=== PATIENT | female | born 1940 | race Caucasian/White ===

== ENCOUNTER 2020-04-07 14:09 | Outpatient (CLI) | payer MEDICARE, SELFPAY ==
--- NOTE | ~2020-04-07 | MM_ITS ---
EXAMINATION: MM screening linda BI w isamar HISTORY: Screening mammogram TECHNIQUE: Craniocaudal and mediolateral oblique 3-D tomosynthesis images were obtained and synthetic 2-D images were generated. CAD analysis was submitted and interpreted. COMPARISON: 03/28/2019, 03/22/2018, 02/14/2017 bilateral digital screening mammogram examinations BREAST PARENCHYMAL COMPOSITION: There are scattered areas of fibroglandular density. FINDINGS: There is no evidence of suspicious mass, calcification, or architectural distortion to sugg est malignancy in either breast. There has been no suspicious interval change. IMPRESSION: 1. No mammographic evidence of malignancy. 2. Recommend routine screening mammography in one year. BI-RADS Category 1: Negative Reviewed, dictated and finalized at location A.
== END 2020-04-07 14:10 | disposition home or self-care (01) ==
LOC: ANHIMG 14:14
PROVIDERS: PCP Internal Medicine; Visit Provider Nurse Practitioner Obstetrics & Gynecology
DX: Z12.31 Encounter for screening mammogram for malignant neoplasm of breast (principal)
CPT/HCPCS: 77063; 77067

== ENCOUNTER → 2020-05-22 10:20 | Outpatient (CLI) | payer MEDICARE, SELFPAY ==
--- NOTE | ~2020-05-22 | MR_ITS ---
EXAMINATION: MR lumbar spine wo con DATE: 05/22/2020 11:05 INDICATION: Low back pain and left leg pain TECHNIQUE: Magnetic resonance imaging (MRI) of the lumbar spine was performed without intravenous con trast. Sequences included sagittal T2-weighted FSE, sagittal T2-weighted FS FSE, sagittal T1-weighted FSE, and axial T2-weighted FSE. COMPARISON: None FINDINGS: 2 mm anterolisthesis L4 on L5. Lumbar levocurvature. Relatively recent T11 and L1 superior endplate c ompression fractures with 20% central vertebral body height loss and marrow edema surrounding the dante ear low signal intensity subtle endplate fracture lines. Remaining vertebral body heights are normal. T1 hyperintense hemangiomas at L1 and L2. There are also fibrofatty degenerative endplate changes at the margins of several endplates. Marrow signal is otherwise normal. Mild right-sided predominant di sc height loss at L2-L3 and L3-L4 and left-sided predominant disc height loss at L4-L5. More diffuse mild disc height loss at T10-T11, T11-T12, L1-L2 and L5-S1. The conus medullaris terminates at L1-L2. There is normal signal in the caudal spinal cord. Paravertebral soft tissues are unremarkable. There are couple small T2 hyperintense left renal cysts measuring up to 11 mm. Chronic dilated right renal pelvis. The following disc levels are specifically discussed: T10-T11: Disc is bulging. There is mild bilateral facet osteoarthritis. There is mild bilateral neura l foraminal stenosis. There is mild central canal stenosis. T11-T12: Disc is bulging. There is minimal bilateral facet osteoarthritis. There is mild left and min imal right neural foraminal stenosis. There is mild central canal stenosis. T12-L1: Disc is bulging, eccentric to the left. There is mild left and moderate right facet joint ost eoarthritis. There is mild bilateral neural foraminal stenosis. There is mild central canal stenosis. L1-L2: Disc is bulging. There is mild left and mild to moderate right facet joint osteoarthritis. The re is moderate bilateral neural foraminal stenosis. There is mild central canal stenosis with narrowi ng of the left and right lateral recesses. L2-L3: Disc is bulging. There is hypertrophy of the ligamentum flavum. There is mild left and modera te right facet joint osteoarthritis. There is moderate right and mild to moderate left neural foramin al stenosis. There is mild central canal stenosis along with narrowing of the left and right lateral recesses. L3-L4: Disc is bulging. There is hypertrophy of the ligamentum flavum. There is moderate right and mi ld to moderate left facet joint osteoarthritis. There is moderate bilateral neural foraminal stenosis . There is mild to moderate central canal stenosis with narrowing of the left and right lateral reces ses. L4-L5: Disc is bulging. There is hypertrophy of the ligamentum flavum. There is a right and mild to moderate left facet joint osteoarthritis. There is moderate left and mild to moderate right neural fo raminal stenosis. There is moderate central canal stenosis with narrowing of the left and right later al recesses. L5-S1: Disc is bulging. There is moderate bilateral facet joint osteoarthritis. There is moderate frankie ateral neural foraminal stenosis. There is no central canal stenosis. There is narrowing of the left and right lateral recesses. IMPRESSION: 1. Relatively recent T11 and L1 compression fractures with 20% vertebral body height loss. 2. Moderate lumbar and lower thoracic spondylosis. Reviewed, dictated and finalized at location A. 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 Relatively recent T11 and L1 compression fractures with 20% vertebral body h eight loss. 2. Moderate lumbar and lower thoracic spondylosis.
== END ==
PROVIDERS: PCP Internal Medicine; Visit Provider Orthopaedic Surgery
DX: M47.896 Other spondylosis, lumbar region (principal); M47.894 Other spondylosis, thoracic region
CPT/HCPCS: 72148

== ENCOUNTER → 2021-04-09 10:08 | Outpatient (CLI) | payer MEDICARE, SELFPAY ==
--- NOTE | ~2021-04-09 | MR_ITS ---
EXAMINATION: MR brain/brain stem wo/w con DATE: 04/09/2021 11:10 INDICATION: Other symptoms and signs involving cognitive functions. Headache. TECHNIQUE: Magnetic resonance imaging (MRI) of the brain and brainstem was performed without and with 12 mL MultiHance intravenous contrast. Sequences included sagittal and axial T1-weighted FSE, axial diffusion-weighted FS EPI, axial T2*-weighted GRE, axial T2-weighted FLAIR Propeller, and axial T2-we ighted Propeller. Postcontrast sequences included axial and coronal T1-weighted FSE. Apparent diffusi on coefficient (ADC) maps were created. COMPARISON: Brain MRI 08/17/2017 FINDINGS: There are scattered areas of nonspecific increased T2-weighted signal intensity in the cere bral white matter, which is within normal limits for the patient's age. There is no intracranial hemo rrhage, acute infarction, or abnormal intracranial mass lesion. The ventricles are normal in size. Th ere is mild mucosal thickening in the paranasal sinuses. There are likely changes of ocular lens repl acement surgeries. The mastoid air cells are normal. IMPRESSION: 1. Normal aging brain. Reviewed, dictated and finalized at location A. IMPRESSION: 1. Normal aging brain.
[2021-04-09 10:53] LABS: Estimated Glomerular Filt Rate > 60
== END ==
PROVIDERS: PCP Internal Medicine; Visit Provider Internal Medicine
DX: R41.89 Other symptoms and signs involving cognitive functions and awareness (principal)
CPT/HCPCS: 70553; A9577

== ENCOUNTER 2021-04-15 13:25 | Outpatient (CLI) | payer MEDICARE, SELFPAY ==
--- NOTE | ~2021-04-15 | DEXA_ITS ---
Bone Density Report Name: Bre Barillas Age: 80 Sex: Female Ethnicity: White Date of : 1940 Indication: osteopenia; monitoring treatment; height loss; prior fracture; postmenopausal Referring Provider: Anna Marie, Zak Study: Bone densitometry was performed. Exam Date: April 15, 2021 Accession number: [id number] Bone Density: Region BMD T-score Z-score Classification AP Spine (L2, L3) 0.914 -1.3 1.4 Osteopenia Femoral Neck (Left) 0.702 -1.3 1.0 Osteopenia Total Hip (Left) 0.876 -0.5 1.5 Normal Total Hip Bilateral Avg 0.874 -0.6 1.5 Normal Femoral Neck (Right) 0.743 -1.0 1.3 Normal Total Hip (Right) 0.872 -0.6 1.5 Normal World Health Organization criteria for BMD impression classify patients as: Normal (T-score at or above -1.0), Osteopenia (T-score between -1.0 and -2.5), or Osteoporosis (T-score at or below -2.5). 10-year Fracture Risk: FRAX not reported because: Treated for osteoporosis Previous Exams: Region Exam Age BMD T-score BMD Change BMD Change Date g/cm2 vs Baseline vs Previous AP Spine(L2, L3) 04/15/2021 80 0.914 -1.3 0.079(9.4%)# 0.020(2.3%)# 07/17/2008 68 0.894 -1.5 0.059(7.0%)* 0.059(7.0%)* 07/16/2006 66 0.835 -2.0 Total Hip(Left) 04/15/2021 80 0.876 -0.5 0.007(0.8%)# 0.028(3.3%)# 07/17/2008 68 0.848 -0.8 -0.021(-2.4%) -0.021(-2.4%) 07/16/2006 66 0.869 -0.6 Total Hip(Right) 04/15/2021 80 0.872 -0.6 -0.039(-4.3%)# -0.054(-5.8%)# 07/17/2008 68 0.926 -0.1 0.014(1.6%) 0.014(1.6%) 07/16/2006 66 0.911 -0.3 *Denotes significance at 95% confidence level, LSC for AP Spine = 0.022 g/cm2, LSC for Total Hip = 0.027 g/cm2 Clinical Information Provided by Patient: Has had a low trauma fracture Is being treated for osteoporosis Has used the following medications: Prolia (i.e. denosumab), Vitamin D, Calcium Patient maximum height was 63 Menopause Age: 53 Drinks caffeinated beverages Onset of menses at age 13 Number of children 5 Impression: The patient has low bone mass, based on the Total Spine T-score. The patient has risk factors, including: previous fracture. No significant bone loss was observed. Discussion: PATIENT UNDER TREATMENT WITH NO SIGNIFICANT BMD LOSS SINCE LAST EXAM. In an untreated patient, BMD typically declines with age. A lack of decline or gain is usually a sign that treatment is efficacious and fracture risk is reduced. It is important to ask arminda
--- NOTE | ~2021-04-15 | MM_ITS ---
EXAMINATION: MM screening linda BI w isamar HISTORY: Screening TECHNIQUE: Craniocaudal and mediolateral oblique 3-D tomosynthesis images were obtained and synthetic 2-D images were generated. CAD analysis was submitted and interpreted. COMPARISON: Comparison to multiple prior studies sequentially, with oldest reviewed study dated 10/15. BREAST PARENCHYMAL COMPOSITION: There are scattered areas of fibroglandular density. FINDINGS: There is no evidence of suspicious mass, calcification, or architectural distortion to sugg est malignancy in either breast. There has been no suspicious interval change. IMPRESSION: 1. No mammographic evidence of malignancy. 2. Recommend routine screening mammography in one year. BI-RADS Category 1: Negative Reviewed, dictated and finalized at location A.
== END 2021-04-15 13:26 | disposition home or self-care (01) ==
PROVIDERS: PCP Internal Medicine; Visit Provider Internal Medicine
DX: Z12.31 Encounter for screening mammogram for malignant neoplasm of breast (principal); M85.89 Other specified disorders of bone density and structure, multiple sites
CPT/HCPCS: 77063; 77067; 77080

== ENCOUNTER → 2022-08-27 14:33 | Outpatient (CLI) | payer OTHER, SELFPAY ==
--- NOTE | ~2022-08-27 | MM_ITS ---
EXAMINATION: MM screening linda BI w isamar HISTORY: Screening mammogram TECHNIQUE: Craniocaudal and mediolateral oblique 3-D tomosynthesis images were obtained and synthetic 2-D images were generated. CAD analysis was submitted and interpreted. COMPARISON: 04/15/2021, 04/07/2020, 03/28/2019, 03/22/2018 bilateral screening mammogram examinations BREAST PARENCHYMAL COMPOSITION: There are scattered areas of fibroglandular density. FINDINGS: Right breast: There is a 2.9 mm relatively high density opacity in the posterior slightly outer right breast on craniocaudal view. Diagnostic right mammogram is recommended, with ultrasound if required. Otherwise there is no evidence of suspicious mass, calcification, or architectural distortion to sugg est malignancy in either breast. There has been no other suspicious interval change. IMPRESSION: 1. 2.9 mm relatively high density opacity in the posterior slightly outer right breast on CC view 2. Diagnostic right mammogram and right breast ultrasound examination are recommended. BI-RADS Category 0: Incomplete: Needs additional imaging evaluation. Reviewed, dictated and finalized at location A. 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 2.9 mm relatively high density opacity in the posterior slightly outer right breast on CC view 2. Diagnostic right mammogram and right breast ultrasound examination are recom mended. BI-RADS Category 0: Incomplete: Needs additional imaging evaluation.
== END ==
PROVIDERS: PCP Internal Medicine; Visit Provider Nurse Practitioner Obstetrics & Gynecology
DX: Z12.31 Encounter for screening mammogram for malignant neoplasm of breast (principal); R92.8 Other abnormal and inconclusive findings on diagnostic imaging of breast
CPT/HCPCS: 77063; 77067

== ENCOUNTER → 2022-10-05 10:03 | Outpatient (CLI) | payer OTHER, SELFPAY ==
--- NOTE | ~2022-10-05 | MMUS_ITS ---
EXAMINATION: MM diagnostic linda RT w isamar, US breast RT complete HISTORY: Follow-up right breast asymmetry TECHNIQUE: Additional 3-D tomosynthesis images of the right breast were performed and synthetic 2-D i mages were generated. CAD analysis was submitted and interpreted. High resolution complete right emerita st ultrasound was performed. COMPARISON: Comparison to multiple prior studies sequentially, with oldest reviewed study dated 02/14. BREAST PARENCHYMAL COMPOSITION: The breasts are heterogeneously dense, which may obscure small masses . FINDINGS: MAMMOGRAPHIC FINDINGS: There is an elongated asymmetric density in the upper outer quadrant of the right breast, slightly mo re prominent than on prior studies dated 02/14/2017 and 03/22/2018. The focal 2 mm asymmetry centrally in the right breast, posterior third is not identified on medial lateral or MLO views. ULTRASOUND: Complete US of all 4 quadrants of the right breast and retroareolar region was reviewed. At 11:00, 6 cm from the nipple there is an irregular shaped hypoechoic mass with some angular margins and mixed p osterior attenuation. No internal vascularity. This soft tissue measures approximately 2.2 x 0.5 cm. This corresponds to the asymmetry seen on mammography. No sonographic abnormalities identified to cor respond to the focal 2 mm asymmetry seen more medially and posteriorly. IMPRESSION: 1. Irregular shaped hypoechoic mass in the right breast at 11:00, 6 cm from the nipple measuring up t o 2.2 cm. 2. Ultrasound-guided right breast biopsy recommended. BI-RADS category 4, suspicious findings. Reviewed, dictated and finalized at location A. IMPRESSION: 1. Irregular shaped hypoechoic mass in the right breast at 11:00, 6 cm from the nipple measuring up to 2.2 cm. 2. Ultrasound-guided right breast biopsy recommended. BI-RADS category 4, suspicious findings.
== END ==
PROVIDERS: PCP Internal Medicine; Visit Provider Nurse Practitioner Obstetrics & Gynecology
DX: R92.8 Other abnormal and inconclusive findings on diagnostic imaging of breast (principal)
CPT/HCPCS: 76641; 77061; 77065; G0279

== ENCOUNTER 2022-12-07 12:42 | Outpatient (CLI) | payer MEDICARE, SELFPAY ==
--- NOTE | ~2022-12-07 | MMUS_ITS ---
EXAMINATION: US breast biopsy RT w image, MM post biopsy invasive RT DATE: 12/07/2022 14:13 (accession [id number]), 12/07/2022 13:55 (accession [id number]) INDICATION: Indeterminate mass in the upper outer quadrant of the right breasts. Ultrasound-guided co re biopsy is requested to evaluate for malignancy. TECHNIQUE AND FINDINGS: The risks and potential benefits of the procedure were discussed with the patient including bleeding and infection. A time out was performed. The skin of the right breast was prepared and draped in usua l sterile fashion. 1% lidocaine was used for superficial anesthesia. 1% lidocaine with epinephrine wa s used for deep anesthesia. A vacuum-assisted biopsy needle was advanced through to the outer edge of the region of interest from an inferior approach utilizing sonographic guidance. A total of four tissue core samples were obtain ed through the lesion. A tissue marker clip was then placed at the biopsy site. Hemostasis was achiev ed. A sterile bandage was applied. The patient tolerated procedure well and there was no evidence of immediate complication. The patient was given verbal instructions to return to the Emergency Department in the event of severe breast pa in or rapid breast enlargement. A two view right breast mammogram was obtained to document tissue mar ker clip placement. IMPRESSION: 1. Successful ultrasound-guided vacuum-assisted biopsy of right breast mass with tissue marker placem ent. Reviewed, dictated and finalized at location A. IMPRESSION: 1. Successful ultrasound-guided vacuum-assisted biopsy of right breast mass wit h tissue marker placement.
== END 2022-12-07 12:43 | disposition home or self-care (01) ==
PROVIDERS: PCP Internal Medicine; Visit Provider Nurse Practitioner Obstetrics & Gynecology
DX: R92.8 Other abnormal and inconclusive findings on diagnostic imaging of breast (principal)
CPT/HCPCS: 19083; 88305; A4648

== ENCOUNTER 2023-12-13 10:46 | Emergency (ER) | payer MEDICARE, SELFPAY ==
--- NOTE | ~2023-12-13 | XR_ITS ---
EXAMINATION: XR forearm LT 2V DATE: 12/13/2023 11:20 INDICATION: Fall. TECHNIQUE: 2 views of left forearm were obtained. COMPARISON: None. FINDINGS: There is a comminuted fracture of distal radius with involvement of the distal articular giang rface. The main distal fracture fragment demonstrates impaction and dorsal angulation. There is 1 deg ree dorsal tilt of the distal articular surface. There is mild osteoarthritis of first carpometacarpa l joint. No elbow joint effusion. IMPRESSION: 1. Comminuted fracture of distal radius. Reviewed, dictated and finalized at location A.
--- NOTE | ~2023-12-13 | XR_ITS ---
EXAMINATION: XR hand LT 2V DATE: 12/13/2023 11:20 INDICATION: Fall. TECHNIQUE: 3 views of left hand were obtained. COMPARISON: None. FINDINGS: There is a comminuted fracture of distal radius with involvement of the distal articular giang rface. The main distal fracture fragment demonstrates impaction. There is 1 degree dorsal tilt of the distal articular surface. There is mild osteoarthritis of first carpometacarpal joint and some of th e interphalangeal joints. There is moderate to severe osteoarthritis of first interphalangeal joint a nd second, third, and fifth distal interphalangeal joints. IMPRESSION: 1. Comminuted fracture of distal radius. Reviewed, dictated and finalized at location A.
[2023-12-13 10:54] VITALS: BP 125/87; PULSE 66; RESP 16; TEMP 36.8; O2SAT 100
--- NOTE | 2023-12-13 12:35 | ED.GENADULT ---
HPI - General Adult General Chief complaint: Extremity Injury, Upper Stated complaint: fell, injured L wrist Time Seen by Provider: 12/13/23 11:30 Source: patient Mode of arrival: ambulatory Limitations: no limitations History of Present Illness HPI narrative: This is a 83 year old female who presents to the ED with chief complaint of a fall that occurred 2 nights ago. Reports subsequent pain to the left hand and wrist. Also reports bruising in this area. States that she was getting up in the middle of the night to go to the bathroom. Reports that she tripped and fell down about 8 steps. Reports that the only pain that she has had since the fall has been in the wrist. Denies any LOC, numbness, weakness. Denies any further injury Related Data Allergies Allergy/AdvReac Type Severity Reaction Status Date / Time amoxicillin Allergy Mild RASH Verified 12/13/23 10:47 Review of Systems Review of Systems: All systems as dictated in HPI Exam Narrative: GENERAL: Well-appearing, well-nourished, and in no acute distress. HEAD: Normocephalic, atraumatic. EYES: PERRLA and EOMI. ENT: Nares clear, no rhinorrhea or epistaxis. Mucous membranes moist. Oropharynx without tonsillar hypertrophy exudate or other lesions. NECK: Supple. No adenopathy or masses. CHEST: No respiratory distress. Clear to auscultation. No wheezes rales or rhonchi HEART: Regular rate and rhythm. No murmur heard. Normal peripheral pulses. ABDOMEN: Soft, nontender, nondistended, normal active bowel sounds. MSK: Moderate swelling, bruising and tenderness throughout the left wrist. Range of motion minimal due to pain Neurovascular intact distally SKIN: Warm, dry, no rash. NEURO: Alert and oriented x3. No focal deficits. PSYCH: Normal mood and affect. Course Vital Signs Vital signs: Vital Signs Temperature 98.2 F 12/13/23 10:54 Pulse Rate 66 12/13/23 10:54 Respiratory Rate 16 12/13/23 10:54 Blood Pressure 125/87 12/13/23 10:54 Pulse Oximetry 100 12/13/23 10:54 Oxygen Delivery Room Air 12/13/23 10:54 Temperature 98.4 F 12/13/23 12:59 Pulse Rate 64 12/13/23 12:59 Respiratory Rate 15 12/13/23 12:59 Blood Pressure 145/64 H 12/13/23 12:59 Pulse Oximetry 100 12/13/23 12:59 Oxygen Delivery Room Air 12/13/23 10:54 Medical Decision Making MDM Narrative Medical decision making narrative: This is a 83-year-old female who presents to the ED with chief complaint of a fall that occurred last night. Patient reports significant pain to the left wrist. Exam shows tenderness and swelling and bruising to the left wrist diffusely. Neurovascularly intact distally X-rays show comminuted fracture of the distal radius on the left. No further injury or sites of pain on exam today. She was given a sugar-tong splint for this left wrist fracture. Orthopedic follow-up given. Rx for [place] given. Pt will be discharged in stable condition. Return precautions given and supportive measures discussed. Pt is understanding and agreeable with plan for discharge and follow-up with PCP. Vital Signs Vital Signs: Vital Signs Temperature 98.2 F 12/13/23 10:54 Pulse Rate 66 12/13/23 10:54 Respiratory Rate 16 12/13/23 10:54 Blood Pressure 125/87 12/13/23 10:54 Pulse Oximetry 100 12/13/23 10:54 Oxygen Delivery Room Air 12/13/23 10:54 Temperature 98.4 F 12/13/23 12:59 Pulse Rate 64 12/13/23 12:59 Respiratory Rate 15 12/13/23 12:59 Blood Pressure 145/64 H 12/13/23 12:59 Pulse Oximetry 100 12/13/23 12:59 Oxygen Delivery Room Air 12/13/23 10:54 Discharge Plan Discharge Clinical Impression: Distal radius fracture, left Patient Disposition: Home, Self-Care Condition: Stable Instructions: Antibiotic Form Additional Instructions: Your exam and imaging today show fractured radius in the forearm. Please follow-up with orthopedics. Use [place] for breakthrough pain control. Othe
[2023-12-13 12:59] VITALS: BP 145/64; PULSE 64; RESP 15; TEMP 36.9; O2SAT 100
== END 2023-12-13 13:01 | disposition home or self-care (01) ==
PROVIDERS: Emergency Provider Physician Assistant; PCP Family Medicine
DX: S52.592A Other fractures of lower end of left radius, initial encounter for closed fracture (principal); W10.9XXA Fall (on) (from) unspecified stairs and steps, initial encounter
CPT/HCPCS: 29125; 73090; 73120; 99284; A4565

== ENCOUNTER 2024-09-09 23:24 | Emergency (ER) | payer MEDICARE, SELFPAY ==
--- OUTSIDE RECORDS SUMMARY | 2024-09-09 23:27 | XMS_ITS | Clinical Summary ---
Author Organization [facility] Address [address] [address] Care Team Providers Care Plant Clerk Name Role Phone Sacha Dash MD Primary Care Provider + Allergies No known active allergies Medications denosumab (PROLIA) 60 mg/mL syringe syringe once. Active calcium carbonate-vitam in D3 1500 mg (600 mg elemental) -200 units per tablet Take 1 tablet by mouth 2 (two) times a day Active docosahexaenoic acid/epa (FISH OIL ORAL) Take by mouth Active cholecalciferol 25 mcg (1,000 unit) tablet Vitamin D Active rivastigmine (EXELON) 4.5 mg capsule Take 1 capsule (4.5 mg total) by mouth 2 (two) times a day 60 capsule 10/10/2023 5 Active mirtazapine (REMERON) 15 mg tablet Take 1 tablet (15 mg total) by mouth nightly 30 tablet 10/10/2023 5 Active atorvastatin (LIPITOR) 20 mg tablet TAKE 1 TABLET BY MOUTH EVERY DAY 90 tablet 10/14/2023 Active HYDROcodone-ishaan taminophen (NORCO) 5-325 mg per tablet Take by mouth every 8 (eight) hours as needed 12/13/2023 Active Active Problems Problem Noted Date Diagnosed Date Acute idiopathic gout involving toe of right emi t 05/10/2023 Assessment & Plan (05/10/2023 1:51 PM CDT): Medrol Dosepak call back no improvement. Dietary measures discussed. Abnormal mammogram 11/14/2022 Assessment & Plan (11/14/2022 10:49 PM CDT): Written instructions provided to patient to call our office when her biopsy has been scheduled or if she needs help scheduling biopsy. Lumbar spinal stenosis 04/29/2022 Overview (04/29/2022): MRI 2019 Assessment & Plan (04/29/2022 5:39 PM CDT): Call back for pain management referral if needed Subclinical hypothyroidism 04/29/2022 Assessment & Plan (05/10/2023 1:54 PM CDT): Asymptomatic. Check thyroid studies this week and call back for results Assessment & Plan (11/14/2022 10:47 PM CDT): Check TSH and free T4 before next visit. Assessment & Plan (04/29/2022 5:40 PM CDT): Mild hair loss otherwise no fatigue, weight gain, constipation. Will repeat TSH and free T4 in 6 months. Call back if symptoms change before then. Cognitive impairment 03/24/2021 Overview (07/06/2021): Laboratory and MRI workup unremarkable 2020. Assessment & Plan (10/10/2023 5:15 PM CDT): Increase rivastigmine capsules to 4.5 mg twice daily. Call back if any side effects. Offered neurological referral but declined. Assessment & Plan (05/10/2023 1:51 PM CDT): Stable on rivastigmine. Assessment & Plan (11/14/2022 10:47 PM CDT): Continue rivastigmine. Improved with treatment of depression as well. Assessment & Plan (10/21/2022 5:21 AM CDT): Probably aggravated by current depression. Continue current medication. Assessment & Plan (04/29/2022 5:40 PM CDT): Increase rivastigmine to 1.5 mg in the morning and 3 mg the evening for 1 week. Then increase to 3 mg twice daily thereafter. Call back with any side effects. Assessment & Plan (07/06/2021 3:16 PM PROGRAM SUPPORT ASSISTANT): Increase donepezil to 10 mg daily. Warned of side effects and call back if any develop. Laboratory workup an MRI unremarkable. Assessment & Plan (04/13/2021 6:40 PM CDT): Probably represents Alzheimer's dementia given family history and her [facility] MS score . Laboratory workup and MRI evaluation before next visit. Start donepezil 5 mg daily and warned of side effects. If none developed, then increase to 10 mg after 30 days. Hyperkalemia 03/24/2021 Assessment & Plan (04/13/2021 6:39 PM CDT): Repeat potassium level before next visit. Insomnia 10/12/2020 Assessment & Plan (04/29/2022 5:39 PM CDT): No complaints today. Assessment & Plan (07/06/2021 3:16 PM PROGRAM SUPPORT ASSISTANT): Use trazodone as needed. Assessment & Plan (04/13/2021 6:38 PM CDT): Well controlled on trazodone. Assessment & Plan (10/12/2020 11:18 AM CDT): Well controlled on trazodone. At risk for cardiovascular event 04/16/2020 Assessment & Plan (05/10/2023 1:51 PM CDT): Continue her atorvastatin check lipids and LFTs this week and call back for results Assessment & Plan (11/14/2022 10:48 PM CDT): LDL remains well controlled on her atorvastatin. Assessment & Plan (04/29/2022 5:40 PM CDT): LDL well controlled on her atorvastatin Assessment & Plan (07/06/2021 3:16 PM PROGRAM SUPPORT ASSISTANT): Continue her atorvastatin check lipids and LFTs before next visit. Assessment & Plan (04/13/2021 6:38 PM CDT): LDL well controlled on her atorvastatin. Assessment & Plan (10/12/2020 11:17 AM CDT): LDL better controlled on her atorvastatin. Assessment & Plan (06/20/2020 5:54 PM PROGRAM SUPPORT ASSISTANT): Atorvastatin resent to her pharmacy and will check lipids and LFTs before next visit 3 months and call back if she develops any side effects. Assessment & Plan (04/16/2020 3:17 PM CDT): He has an elevated risk for ASCVD and therefore recommend statin therapy in form of atorvastatin 20 mg p.o. q.h.s. and discussed potential side effects and call back if any develop. Check lipids and LFTs before next visit. Diet exercise discussed. Osteoporosis 03/21/2020 Overview (06/20/2020): T11, L1 20% compression fractures 05/2020 Assessment & Plan (05/10/2023 1:53 PM CDT): Calcium, vitamin-D, weight-bearing exercise, Prolia Assessment & Plan (11/14/2022 10:47 PM CDT): Calcium, vitamin-D, weight-bearing exercise, Prolia and repeat bone density scan March 2023. Assessment & Plan (04/29/2022 5:39 PM CDT): Calcium, vitamin-D, weight-bearing exercise, Prolia and repeat bone density scan March 2023. Assessment & Plan (07/06/2021 3:16 PM PROGRAM SUPPORT ASSISTANT): Continue calcium, vitamin-D, weight-bearing exercise, Prolia and repeat bone density scan every 2 years. Assessment & Plan (04/13/2021 6:38 PM CDT): Calcium, vitamin-D, weight-bearing exercise, Prolia and repeat bone density scan approximately every 2 years. Assessment & Plan (10/12/2020 11:17 AM CDT): Continue calcium, vitamin-D, weight-bearing exercise, Prolia and repeat bone density scan March 2021. Assessment & Plan (06/20/2020 5:53 PM PROGRAM SUPPORT ASSISTANT): Continue calcium, vitamin-D, weight-bearing exercise, Prolia and repeat bone density scan March 2021. Assessment & Plan (04/16/2020 3:16 PM CDT): Continue calcium, vitamin-D, weight-bearing exercise, Prolia and repeat bone density scan approximately every 2 years. Chronic right shoulder pain 03/21/2020 Assessment & Plan (04/16/2020 3:16 PM CDT): Continue Celebrex and follow-up with her physical therapist and orthopedist as they direct. Arthralgia of both hands 05/10/2019 Assessment & Plan (04/16/2020 3:16 PM CDT): Continue Celebrex. Reports previous negative rheumatology workup. Assessment & Plan (05/10/2019 11:36 AM CDT): We discussed her significant arthritis of her hands I am going to have Rheumatology perform a full workup along with her multiple other complaints. She states she has a daughter who also gets vision changes at times but does not recall any autoimmune disease in the family Screening mammogram, encounter for 04/06/2019 Assessment & Plan (04/06/2019 12:15 PM CDT): Current. 03/28/19. Screening for colon cancer 04/06/2019 Overview (04/06/2019): 08/18/18 per armando Bonilla. Assessment & Plan (04/06/2019 12:15 PM CDT): 08/18/18 per armando Bonilla. Health care maintenance 04/06/2019 Assessment & Plan (05/10/2023 1:53 PM CDT): Flu shot today. COVID booster, RSV, Shingrix recommended. Prevnar 13/Pneumovax 23 completed. Tetanus booster every 10 years. Deferring future mammograms and colonoscopies due to age. Will see her back in 6 months with lab sooner if needed Assessment & Plan (04/29/2022 5:41 PM CDT): Flu shot today. COVID booster recommended. Pneumovax 23 and Prevnar 13 completed. Shingrix recommended. Deferring mammogram and colonoscopy due to age. Will see her back in 6 months with thyroid studies sooner if needed. Assessment & Plan (04/13/2021 6:39 PM CDT): We discussed a comprehensive list of medical conditions and proposed recommendations for each. We discussed the importance of increased exercise, fall prevention, proper nutrition, and suggested joining [employer] [facility] to accomplish most of these goals. Patient was given an age appropriate Medicare preventive services checklist. Please see the EMR regarding details of their health risk assessment and preventive services checklist. Will see her back in 3 months sooner if needed. Assessment & Plan (04/16/2020 3:17 PM CDT): We discussed a comprehensive list of medical conditions and proposed recommendations for each. We discussed the importance of increased exercise, fall prevention, proper nutrition, and suggested joining [facility] to accomplish most of these goals. Patient was given an age appropriate Medicare preventive services checklist. Please see the EMR regarding details of their health risk assessment and preventive services checklist. Will see her back in 3 months with fasting lab sooner if needed. Assessment & Plan (04/06/2019 12:31 PM CDT): A medicare annual wellness visit was completed today. Th patient completed a depression screen, functional assessment screen, health risk assessment screen. All elements of this exam were completed as outlined by [facility]. Environmental allergies 04/26/2018 Assessment & Plan (05/03/2018 2:52 PM CDT): Will refer to allergy for full evaluatipn Assessment & Plan (04/26/2018 2:59 PM CDT): Start Zyrtec and Flonase. Irrigate sinuses with saline. Patient verbalizes understanding. Vasovagal syncope 06/15/2017 Assessment & Plan (08/11/2017 2:07 PM PROGRAM SUPPORT ASSISTANT): She has had an extensive workup so far however has been told that she needs bilateral carotids and MRI brain by Ophthalmology Assessment & Plan (06/29/2017 4:18 PM PROGRAM SUPPORT ASSISTANT): History and previous cardiac evaluation is most supportive of a vasovagal etiology for her syncopal episodes. She was prescribed low-dose metoprolol and I have informed her that it is possible that this might be effective in limiting or prevent in her episodes. Alternatively, since she has a fairly reliable warning system she can place herself in a safe position when she becomes nauseous so as to not suffer any trauma. I have informed her that either strategy is reasonable and that ultimately it depends on her comfort level with taking medications chronically or continued to experience episodes of syncope. 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 Assessment & Plan (10/10/2023 5:15 PM CDT): Recommended she discuss with her pharmacist whether she can return to her previous generic version of Remeron.. Otherwise in 1 week increase mirtazapine to 15 mg daily. Assessment & Plan (05/10/2023 1:53 PM CDT): Well controlled on mirtazapine Assessment & Plan (11/14/2022 10:47 PM CDT): Better controlled on mirtazapine. Assessment & Plan (10/21/2022 5:21 AM CDT): Trial of mirtazapine for combination of insomnia, decreased appetite and depression. Assessment & Plan (05/10/2019 11:36 AM CDT): We will discontinue venlafaxine today as I do not believe it is helping her she believes it may be causing some reaction Assessment & Plan (04/06/2019 12:31 PM CDT): Stable. Continue Effexor XR 37.5 mg daily. Assessment & Plan (03/28/2018 2:06 PM CDT): States that she is not much better, she believes that the trintellex has not changed her mood much her symptoms are still very nondescript. She states she gets some blurry vision and depression type symptoms at times. At this point we will increase the trintellex to 10 mg Assessment & Plan (05/25/2017 9:09 AM PROGRAM SUPPORT ASSISTANT): states she may feel a little better Assessment & Plan (04/13/2017 11:20 AM CDT): She definitely has some evidence of depression at this point we will start low- dose Zoloft see her back in 4-5 weeks I will also begin with lab work today Seasonal allergic rhinitis due to pollen 017 Assessment & Plan (07/06/2021 3:16 PM PROGRAM SUPPORT ASSISTANT): Continue her azelastine and Zyrtec and follow-up with her pricing clerk as they direct. Assessment & Plan (04/13/2021 6:39 PM CDT): Restart Zyrtec and try azelastine. Assessment & Plan (06/20/2020 5:53 PM PROGRAM SUPPORT ASSISTANT): Continue Zyrtec as needed. Assessment & Plan (04/16/2020 3:16 PM CDT): Continue Zyrtec as needed. Assessment & Plan (04/13/2017 11:20 AM CDT): Patient is doing very well on current medical regimen. Will continue with same treatment and monitor as clinical course dictates. Resolved Problems Problem Noted Date Diagnosed Date Resolved Date At low risk for fall 03/24/2021 022 Assessment & Plan (04/13/2021 6:39 PM CDT): Walk in well lit rooms without clutter on the floor and use handrails on all stair cases. Physical therapy if balance worsens. BMI 27.0-27.9,adult 05/10/2019 10/10/19 22 Overview (05/10/2019): BMI Follow-up includes: nutrition counseling, exercise counseling and education provided. BMI 28.0-28.9,adult 02/15/2019 10/10/19 22 Overview (02/15/2019): BMI Follow-up includes: nutrition counseling, exercise counseling and education provided. Assessment & Plan (04/06/2019 12:03 PM CDT): BMI Follow-up includes: nutrition counseling, exercise counseling and education provided. BMI 24.0-24.9, adult 05/03/2018 019 Assessment & Plan (05/03/2018 2:42 PM CDT): BMI Follow-up includes: nutrition counseling, exercise counseling and education provided. Chest pain 06/29/2017 04/06/2019 Assessment & Plan (06/29/2017 4:16 PM PROGRAM SUPPORT ASSISTANT): Very atypical and much more suspicious of gastroesophageal reflux. Supporting a noncardiac diagnosis is the favorable findings on her stress test and echocardiogram. Could consider an [id number] H2 damien or proton pump inhibitor. Would not pursue this any further from a cardiac perspective Right ear pain 04/13/2017 04/06/2019 Assessment & Plan (04/13/2017 11:20 AM CDT): No evidence of abnormality on exam we can follow Blurred vision 04/13/2017 04/06/2019 Assessment & Plan (02/15/2019 9:36 AM CDT): Now seeing a new ophtho, now on new drops for dry eyes Assessment & Plan (03/28/2018 2:07 PM CDT): We reviewed her extensive workup she has seen [facility] Ophthalmology with negative workup, she then saw Neurology with negative workup, we recently check labs which are negative as well at this point she believes this is may be mood related and appears to be somewhat improving Assessment & Plan (03/07/2018 10:39 AM CDT): Our major discussion today was about her blurred vision. We have Center for full evaluation with [facility] including full ophthalmological evaluation. Ophthalmology does not believe her to have any ophthalmological issue they recommended neurologic workup including a MRI and carotid duplexes all of which are negative. After more discussion she believes that the vision/fatigue has to do with her depression as well as the possibility of Zoloft which we have sequentially increased to 150 mg a day. At this time I am going to stop her Zoloft switch her to Trintellex 5 with a goal of increasing over the next few weeks. I am curious as to her lab work as she has not had any done since May we will start with this as well Assessment & Plan (08/11/2017 2:08 PM PROGRAM SUPPORT ASSISTANT): She is under an extensive evaluation ophthalmological E she had a test this morning which we are waiting on results I will order carotid an MRI Assessment & Plan (05/25/2017 9:07 AM PROGRAM SUPPORT ASSISTANT): states it comes on and off , has seen Dr RAJAN at [facility], very unclear how she is describing it states she was on vacation and had no blurred vision Will refer for second opinion to [facility] ophtho Assessment & Plan (04/13/2017 11:19 AM CDT): We had a discussion today about her blurred vision she has been through an evaluation with Ophthalmology She is describing some depression type symptoms as well Tired 04/13/2017 04/06/2019 Assessment & Plan (03/07/2018 10:38 AM CDT): Please see discussion under blurry vision below patient is describing extreme fatigue blurry vision Assessment & Plan (04/13/2017 11:20 AM CDT): Including an with lab work today she is describing significant fatigue BMI 27.0-27.9,adult 04/05/2017 04/06/20 19 Overview (04/13/2017): BMI Follow-up includes: nutrition counseling, exercise counseling and education provided. Assessment & Plan (04/26/2018 2:23 PM CDT): BMI Follow-up includes: nutrition counseling, exercise counseling and education provided. Assessment & Plan (03/07/2018 10:38 AM CDT): She has lost 8 lb since last time Assessment & Plan (04/05/2017 12:43 PM CDT): Body mass index is 28.56 kg/m . BMI Follow-up includes: nutrition counseling, exercise counseling and education provided. Viral upper respiratory tract infection 04/05/2017 04/06/2019 Dysfunction of both eustachian tubes 04/05/2017 04/06/2019 Encounters Date Type Department Care Team Description 07/05/2024 MARK IP Outreach [facility] [address] [place] [id number] Shruthi Chacko LPN from Last 3 Months Immunizations Immunization Administration Dates Next Due Hep A, Adult 03/27/2012 Hep B Vaccine 03/27/2012 Influenza, Quad, Adjuvantate d, Intramuscular 05/19/2021 Influenza, Quadrivalent, Hig h Dose, Preservative Free, Intrr 05/10/2023,05/26/2022 Influenza, Quadrivalent, Spl it, Intramuscular 05/26/2016 Influenza, Trivalent, Adjuva nted, Intramuscular 04/19/2020 Influenza, Trivalent, High D ose, Split, Preservative Free, Intramuscular 05/10/2019,05/22/2018,04/02/2017,05/13 Influenza, Trivalent, IM (MDV) 4,05/01/2013,05/23/2012,05/05 Influenza, Trivalent, Recomb inant, Egg Free, Preservative Free, Antibiotic Free, IM (FLUBLOK) 05/13/2015,04/30/2014 Influenza, Unspecified 03/21/2020(Deferr ed: Patient Refused),04/17/2018,03/30/2017 Pfizer SARS-CoV-2 Monovalent Vaccination (12+ Yrs) PURPLE 09/05/2020,08/15/2020 Pneumococcal Conjugate PCV 13 03/26/2015 Pneumococcal Polysaccharide PPV23 12/03/2009 Typhoid Inactivated 03/16/2012 Surgical History Surgery Date Site/Laterality Comments KIDNEY STONE SURGERY 04/17/2016 - 05/17/2016 SECTION 07/18/1976 - 07/17/1977 BREAST LUMPECTOMY 07/18/1985 - 07/17/1986 TUBAL LIGATION 07/18/1976 - 07/17/1977 SHOULDER ARTHROSCOPY 07/18/2002 - 07/17/2003 Medical History Medical History Date Comments Depression Depression Hx Other Medical C sections Hx Other Medical lumpectomy Hx Other Medical hand surgery Hx Other Medical tendon repair Syncope Family History Medical History Relation Name Comments Alzheimer's disease Brother 1 No Known Problems Brother 2 No Known Problems Brother 3 Lung cancer Brother 4 Throat cancer Brother 4 Alzheimer's disease Father Alzheimer's disease Mother Heart disease Mother Stomach cancer Mother Cancer -gastr ic; Alzheimer's disease Sister Relation Name Status Comments Brother 1 Alive Brother 2 Alive Brother 3 Brother 4 Father Mother Sister Alive Social History Tobacco Use Types Packs/Day Years Used Date Smoking Tobacco: Never Smokeless Tobacco: Never Alcohol Use Standard Drinks/Week Comments No 0 (1 standard drink = 0.6 oz pur e alcohol) AUDIT-C Answer Date Recorded Q1: How often do you have a drink containing alcohol? Never 10/10/2023 Q2: How many drinks containi ng alcohol do you have on a typical day when you are drinking? Patient does not drink Q3: How often do you have si x or more drinks on one occasion? Never 10/10/2023 PHQ-2 Answer Date Recorded PHQ-2 Total Score (If total score is 3 or more points, staff should administer the PHQ-9) 0 10/10/2023 Comments Unknown Sex and Gender Information Value Date Recorded Sex Assigned at Not on file Legal Sex Female 1:44 PM PROGRAM SUPPORT ASSISTANT Gender Identity Not on file Sexual Orientation Not on file Occupation Industry Job Start Date Job End Date Retired Not on file Not on file Not on file Obstetrics History Last Filed Vital Signs Vital Sign Reading Time Taken Comments Blood Pressure 150/82 02/01/2024 2:48 PM CDT Pulse 69 02/01/2024 2:48 PM CDT Temperature 36.7 C (98.1 F) 04/05/2017 12:17 PM CDT Respiratory Rate 20 10/10/2023 2:59 PM CDT Oxygen Saturation 95% 11/02/2022 10:30 AM CDT Inhaled Oxygen Concentration - - Weight 68 kg (150 lb) 02/01/2024 2:48 PM CDT Height 162.6 cm (5' 4 ) 02/01/2024 2:48 PM CDT Body Mass Index 25.75 02/01/2024 2:48 PM CDT Plan of Treatment Health Maintenance Due Date Last Done Comments DTaP/Tdap/Td Vaccine (1 - Tdap) 1951 Zoster Vaccine (1 of 2) 1991 Osteoporosis Screening-Bone Density Scan 04/15/2023 04/15/2021, 04/06/2019, 03/03/2016, Additional history exists Breast Cancer Screening-Mammogram 09/08/2023 09/08/2022, 08/27/2022, 08/27/2022, Additional history exists Covid-19 Vaccine (2023-2 5 season) 2024 07/06/2022, 07/01/2021, 09/05/2020, Additional history exists Influenza Vaccine (#1) 2024 , 05/26/2022, 05/19/2021, Additional history exists Well Visit 65+ 05/10/2024 05/10/2023, 04/17, 03/24/2021, Additional history exists Depression Screening 10/09/2024 10/10/2023, 05/10/2023, 11/02/2022, Additional history exists Fall Risk Assessment 10/09/2024 10/10/2023, 05/10/2023, 11/02/2022, Additional history exists Colon Cancer Screening-Colonoscopy 08/18/2028 08/18/2018 Hepatitis B Screening Completed 03/27/2012 Pneumococcal vaccine 65+ Completed 03/26/2015, 11/15 Colon Cancer Screening-CT Colonography Discontinued 08/18/2018 Colon Cancer Screening-DNA Stool Discontinued 08/18/19 Colon Cancer Screening-FIT Discontinued 08/18/2018 Colon Cancer Screening-Sigmoidoscopy Discontinued 08/18/2018 Procedures Procedure Name Priority Date/Time Associated Diagnosis Comments SCREENING MAMMOGRAM Schedule Routine, Read Routine (OP Routine) 08/27/2022 DEXA AXIAL SKELETON BONE DENSITY 1 OR MORE SITES Schedule Routine, Read Routine (OP Routine) 04/15/2021 Osteoporosis, post-menopausal COLONOSCOPY Routine 08/18/2018 from Last 3 Months or Most Recently Relevant to Health Maintenance Results * Screening Mammogram (08/27/2022) Anatomical Region Laterality Modality Breast N/A Mammography us Generic External Data Provider IMG MAMMO PROCEDU RES Final Result * Dexa Axial Skeleton Bone Density 1 or 2 Site (04/15/2021) Anatomical Region Laterality Modality Body N/A Radiographic Regina ging Zak Thrasher MD IMG DXA PROCEDURES Final Res ult * Colonoscopy (08/18/2018) Anatomical Region Laterality Modality Other Impressions 08/18/2018 Colonoscopy performed today - dr carmona us Historical Provider ENDOSCOPY PROCEDURES Kathie l Result from Last 3 Months or Most Recently Relevant to Health Maintenance Insurance [facility] MEDICARE [facility] MEDICARE Care Teams Plant Clerk Relationship Specialty Start Date End Date Sacha Dash MD [id number] [address] [address] [address] PCP - General Internal Medicine 03/30/24
--- OUTSIDE RECORDS SUMMARY | 2024-09-09 23:27 | XMS_ITS | Clinical Summary ---
Author Organization [facility] Address [address] [place] [id number] Care Team Providers Care Expanded Function Dental Assistant Name Role Phone Unavailable Primary Care Provider Unavailabl e Social History Tobacco Use Types Packs/Day Years Used Date Smoking Tobacco: Never Assessed Comments Unknown Sex and Gender Information Value Date Recorded Sex Assigned at Not on file Legal Sex Female 5:28 PM CDT Gender Identity Not on file Sexual Orientation Not on file Plan of Treatment Health Maintenance Due Date Last Done Comments DTaP, Tdap and Td Vaccines ( 1 - Tdap) 1960 Zoster Vaccines (1 of 2) 1991 Dexa Scan (General) 2006 Pneumococcal Vaccine: 65+ Ye ars (1 of 1 - PCV) 2006 RSV Immunization or 60+ Years (1 - 1-dose 75+ series) 2016 COVID-19 Vaccine (2023-2 5 season) 2024 Influenza Adult (#1) 2024 Meningococcal B Vaccine Aged Out No l onger eligible based on patient's age to complete this topic Meningococcal Vaccine Aged Out No joe mindy eligible based on patient's age to complete this topic RSV Immunizations Under 20 Months Aged Out No longer eligible based on patient's age to complete this topic
--- OUTSIDE RECORDS SUMMARY | 2024-09-09 23:27 | XMS_ITS | Data Portability ---
Author Organization [facility] [place] Address [address] [place] [address] Care Team Providers Care Social Security Specialist Name Role Phone CHRISTIN HINES Primary Care Provider Assessment Encounter Date Assessment Date Assessment LastModified by Organization Details LastModified Time 04/07/2020 04/07/2020 Annual gynecological exam performed. Patient will come back in a year unless there are new symptoms. [email or web address] Not available 04/07/2020 14:30:47 10/15/2021 10/15/2021 Annual gynecological exam performed. Patient will come back in a year unless there are new symptoms. Not available 10/15/2021 15:15:54 10/18/2022 10/18/2022 Annual gynecological exam performed. Patient will come back in a year unless there are new symptoms. Not available 10/18/2022 12:17:34 Plan of Treatment Reminders Order Date Submit Date Provider Last Modified By Organization Details Last Modified Time Details Appointments None record ed. Lab None record ed. Referral None record ed. Procedures None record ed. Surgeries None record ed. Imaging None record ed. Medication Orders None record ed. Patient TargetsNo targets recorded. Patient Instructions Encounter Date Encounter Id Patient Instructions Last Modified By Organization Details Last Modified Time 04/07/2020 [email or web address] Not available 15:01:05 Reason for Referral None Reported. Results Created Date Observation Date Name Description Value Unit Range Abnormal Flag Note LastModifiedBy Organization Detail LastModifiedTime 04/07/2004/09/2020 pap, LB Pap test thin prep Negati ve for Intrae pithel ial Lesion or Malign aniket normal ACCES KASH #: [id number] Sour e: Cervi landon/E ndoce rvica l LMP: 07/18 Date Taken : 04/07 Speci men Type: ThinP rep Vial Date Repor bijan: 2019 Clini landon Data: Cytot ech: Cristina Gautam Ackle y, CT( CP) Date Repor bijan: 2019 Speci men Adequ acy: Satis facto ry for evalu ation Endoc ervic al/tr ansfo rmati on zone compo nent prese nt Gener al Categ oriza tion: NEGAT MARICRUZ FOR INTRA EPITH ELIAL LESIO N OR MALIG LILIANE This speci men has been trevor zed by the ThinP rep Imagi ng Syste m, an inter activ e compu ter syste m which harrison ts the lab in the scree ami of ThinP rep Pap Test slide s. Follo wing imagi ng, the slide was revie wed by a Cytot echno logis t and/o r Patho logis t. D N A A S S A Y S R E P O R T TEST NAME RESUL TS ----- ---- ----- -- HPV High Risk Scree n (TMA) ThinP rep Vial The human papil lomav irus (HPV) High Risk Scree n is an FDA-a pprov ed in-vi tro ampli fied nucle ic acid test for the quali tativ e detec tion of E6/E7 viral mRNA. Resul ts shoul d be corre lated with patie nt prese ntati on, histo ry, cervi landon cytol ogy and other clini landon and labor atory findi ngs. See https ://Treasure Data/s ites/ defau lt/fi les/2 018-0 3/AW- 90460 _002_ 01.pd f for furth er infor matio n. Test perfo rmed by [facility], d/b/a [facility], [address], [facility] [place] [address] , Dyana Archibald ra, DO, Labor atory Direc tor. HPV High Risk *HPV NOT DETEC BIJAN (TYPE S 16, 18, 31, 33, 35, 39, 45, 51, 52, 56, 58, 59, 66, 68) *HPV: The human papil lomav irus (HPV) High Risk Vasquez barreto is an FDA-a pprov ed in-vi tro ampli fied nucle ic acid test for the quali tativ e detec tion of E6/E7 viral mRNA. [facility] ts shoul d be corre lated with patie nt prese ntati on, histo ry, cervi landon cytol ogy and other clini landon and labor atory findi ngs. See https ://Treasure Data/s ites/ defau lt/fi les/2 018-0 3/AW- 88593 _002_ 01.pd f for rob paula infor raymond barreto. Test [facility]fo rmed by [facility], d/b/a [email or web address], [address] , [place] [address] , Dyana Archibald ra, DO, Labor atory Direc tor. End of t Techn ical servi nancy provi ded by [facility], d/b/a [facility] [employer], [address] [place] [address] Santos Beltre MD, Labor atory Dire tor. Case revie wed and diagn osis rende red at [facility] [employer], d/b/a [employer] [employer], [address] [place] [address] Santos Beltre MD, Labor atory Dire tor. CONFI DENTI AL Not Available [facility] ([facility]) [address], [place], [address], 04/09/2020 09:34:49 04/07/20 20 04/08/2020 HPV DNA, high- risk HPV high risk NOT DETECT ED normal Not Available [facility] ([facility]) [address], [place], [address], 04/09/2020 09:34:50 10/16/19 22 10/15/2021 IMAGE GUIDE D PAP AND HPV REGAR DLESS image guided Pap, HPV regardless of Pap result SEE RESULT S BELOW abnormal CASE REPOR T: Cytol ogy Gynec ologi landon Repor t Case: [id number] Autho loraine meredith Provi mayuri: Ethan Bright Colle cted: 10/15 1631 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 Atrop hic cell jose richter. Elect miya guerrero jorge d by Misael fink, Shauna haney, CT on 022 at 9:17 PM ----- ----- ----- ----- ----- ----- ----- ----- ----- ----- ----- ----- ----- ----- ----- ----- ----- ---- HPV RESUL TS: HPV mRNA E6/E7 : Posit maricruz - HPV mRNA Detec bijan HPV GENOT YPE 16 (JAYDEN) : Not Detec bijan HPV GENOT YPE 18/45 (JAYDEN) : Not Detec bijan NOTE: This high risk HPV mRNA assay detec ts fourt een high- risk HPV types (16, 18, 31, 33, 35, 39, 45, 51, 52, 56, 58, 59, 66, 68) witho ut diffe renti ation . This assay can diffe renti ate HPV 16 from HPV 18/45 , but does not diffe renti ate betwe en HPV 18 and HPV 45. A negat maricruz HPV 16, 18/45 genot ype assay resul t does not exclu de the possi bilit y of cytol ogic abnor malit ies or of futur e or under lying VICTOR MANUEL 1, VICTOR MANUEL 3 or cance r. COMME NT: Note: This speci men was revie wed by a Cytot echno logis t and/o r Patho logis t (as indic ated in this repor t) after evalu ation using the Thinp rep Imagi ng Syste m. CLINI LANDON INFOR MATIO N: Menst rual Statu s: LMP (if appli cable ): Clini landon Histo ry/Pr eviou s Pap: Type of Neopl lachelle (if appli cable ): Signi fican t Clini landon Findi ngs: Other Histo ry: Hormo figueroa (if appli cable ): PAP EDUCA TIMMY L NOTE: The Pap Test is a scree ami test with an inher ent false negat maricruz rate. Liqui d-bas ed sampl ing may decre ase, but will not elimi kyleigh, false negat maricruz resul ts. A negat maricruz resul t does not precl ude the prese nce and/o r devel opmen t of disea se, since the prese nce of abnor mal cells in the sampl e depen ds on the locat ion of the lesio n and sampl ing techn ique. Alina nued regul ar scree ami is the best metho d of cance r preve ntion . If repor bijan cytol ogic findi ng do not corre late with physi landon and/o r histo rical findi ngs, furth er inves tigat ion is recom ej d, as clini le baez nted. 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 Elect miya guerrero jorge d by Keanu Pugh rd, MD on 023 at 10:52 AM ----- ----- ----- ----- ----- ----- ----- ----- ----- ----- ----- ----- ----- ----- ----- ----- ----- ---- HPV RESUL TS: HPV mRNA E6/E7 : Posit maricruz - HPV mRNA Detec bijan HPV GENOT YPE 16 (JAYDEN) : Not Detec bijan HPV GENOT YPE 18/45 (JAYDEN) : Not Detec bijan NOTE: This high risk HPV mRNA assay detec ts fourt een high- risk HPV types (16, 18, 31, 33, 35, 39, 45, 51, 52, 56, 58, 59, 66, 68) witho ut diffe renti ation . This assay can diffe renti ate HPV 16 from HPV 18/45 , but does not diffe renti ate betwe en HPV 18 and HPV 45. A negat maricruz HPV 16, 18/45 genot ype assay resul t does not exclu de the possi bilit y of cytol ogic abnor malit ies or of futur e or under lying VICTOR MANUEL 1, VICTOR MANUEL 3 or cance r. COMME NT: This speci men was revie wed by a Cytot echno logis t and/o r Patho logis t (as indic ated in this repor t) after evalu ation using the Thinp rep Imagi ng Syste m. CLINI LANDON INFOR MATIO N: Menst rual Statu s: LMP (if appli cable ): Clini landon Histo ry/Pr eviou s Pap: Type of Neopl lachelle (if appli cable ): Signi fican t Clini landon Findi ngs: Other Histo ry: Hormo figueroa (if appli cable ): BEN BARKLEY FOLLO W-UP: Follo w up as warra nted, based on curre nt guide lines and indiv idual patie nt consi derat ions. 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 Elect miya liu by Gisela Deutsch MD on 023 at 1:17 PM ----- ----- ----- ----- ----- ----- ----- ----- ----- ----- ----- ----- ----- ----- ----- ----- ----- ---- CLINI LANDON INFOR RAYMOND N: r87.6 10 MICRO SCOPI C DESCR IPTIO N: A micro scopi c exami natio n was perfo rmed. GROSS DESCR IPTIO N: A. Cervi x. The speci men is label ed with the patie nt's name, demog raphi cs and TMZ . Recei trish in forma dante is a 0.5 x 0.5 x 0.1 [address] of mucus and minut e white -williamson tissu e. The entir e speci men is submi tted in one casse tte. Gross ed by Jose deng Not Available [facility] (Lab) [address], [place], [address], 11/17/2022 14:19:21 04/07/20 20 04/07/2020 MAMMO , scree ami, bilat eral No observ ation record ed. [facility] [address], [place], [address], 04/09/2020 13:56:14 08/27/19 23 08/27/2022 MAMMO , scree ami, bilat eral No observ ation record ed. [email or web address] [place] [facility] [address], [place], [address], 09/06/2022 16:28:15 08/27/19 23 08/27/2022 MAMMO , scree ami, bilat eral No observ ation record ed. [email or web address] [place] [facility] [address], [place], [address], 09/06/2022 16:28:16 09/08/19 23 08/27/2022 MAMMO , scree ami, bilat eral No observ ation record ed. [email or web address] [facility] [address], [place], [address], 09/08/2022 17:35:52 11/13/19 23 10/05/2022 US, breas t, unila teral No observ ation record ed. [email or web address] [facility] [address], [place], [address], 11/24/2022 10:21:14 12/07/19 23 10/05/2022 US, breas t, unila teral No observ ation record ed. [email or web address] [facility] [address], [place], [address], 12/14/2022 10:03:17 12/07/19 23 10/05/2022 MAMMO , diagn ostic , digit al, unila teral No observ ation record ed. [facility] [address], [place], [address], 12/14/2022 14:26:54 Result Notes None recorded. Problems Name Problem SNOMED Code Status Onset Date Resolution Date Notes Provider Name and Address Organization Details Recorded Time Cytologi c finding 025164509 Completed 201010/15/2021 Pap Abnormal LGSIL;Pra ctice ID: 0001 Janelle smith [facility] 2 12:47:06 Adult health examinat ion Completed 201110/15/2021 Routine general medical examinati on at a health care facility; Practice ID: 0001 Janelle smith [facility] 2 12:47:06 Speciali zed medical examinat ion Completed 201110/15/2021 Routine gynecolog ical examinati on;Practi ce ID: 0001 Janelle smith [facility] 2 12:47:06 Screenin g for malignan t neoplasm of cervix Completed 201110/15/2021 Pap Smear;Pra ctice ID: 0001 Janelle smith [facility] 2 12:47:06 Screenin g for malignan t neoplasm of rectum Completed 201110/15/2021 Screening for malignant neoplasms of the rectum;Pr actice ID: 0001 Janelle Christianson [facility] 2 12:47:06 Leukocyt osis [id number] Completed 201210/15/2021 LEUKOCYTO SIS NOS;Pract ice ID: 0001 Janelle Christianson [facility] 2 12:47:06 Microsco pic hematuri a [id number] Completed 201310/15/2021 HEMATURIA MICROSCOP IC;Practi ce ID: 0001 Janelle Christianson [facility] 2 12:47:06 Abnormal weight gain [id number] Completed 201210/15/2021 Abnormal weight gain;Lalo rded Elsewhere : No Locati on: [facility] So urce: EHR Chron ic: N Practic e ID: 0001 Bill able Time: 10:30:00 AM Janelle Christianson [facility] 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 2 12:47:06 Evaluati on finding Completed 201710/15/2021 Hematuria , unspecifi ed;Record ed Elsewhere : No Locati on: [facility] So urce: EHR Chron ic: N Practic e ID: 0001 Bill able Time: 11:30:00 AM Janelle Christianson [facility] 2 12:47:[address] Concept Completed 201510/15/2021 Encntr for general adult medical exam w/o abnormal findings; Recorded Elsewhere : No Locati on: [facility] So urce: EHR Chron ic: N Practic e ID: 0001 Bill able Time: 09:30:00 AM Janelle smith [facility] 2 12:47:06 Urinary tract infectio us disease [id number] Completed 201710/15/2021 UTI;Recor ded Elsewhere : No Locati on: [facility] So urce: EHR Chron ic: N Practic e ID: 0001 Bill able Time: 11:30:00 AM Janelle Christianson [facility] 2 12:47:06 Human papillom avirus deoxyrib onucleic acid detected , high risk on cervical specimen [id number] Completed 201710/15/2021 Cervical high risk HPV DNA test positive; Recorded Elsewhere : No Locati on: [facility] So urce: EHR Chron ic: N Practic e ID: 0001 Bill able Time: 08:30:00 AM Janelle Christianson [facility] 2 12:47:07 Problem Notes None recorded. Procedures Surgical History Date Name Laterality Status Provider Name and Address Organization Details Recorded Time 11/17/19 23 Colposcopy completed Alisa Ayers [facility] [address], [place], [address], [facility] 11/16/2022 12:28:27 08/27/19 23 Date of Last Mammogram completed [facility] 10/18/2022 12:18:28 10/16/19 22 Date of Last Pap Smear completed [facility] 09/08/2022 14:16:58 lumpectomy of breast completed Chrystal Kaplan [facility] 04/07/2020 14:43:45 Shoulder joint surgery completed Chrystal Kaplan [facility] 04/07/2020 14:43:55 Colonoscopy completed Chrystal Martin [facility] 04/07/2020 14:44:01 Imaging Results Imaging Date Name Status LastModified by Organiz ation Details LastModified Time 04/07/2020 MAMMO, screening, bilateral completed [facility] [address], [place], [address], 04/09/2020 13:56:14 08/27/2022 MAMMO, screening, bilateral completed [email or web address] [address], [place], [address], 09/06/2022 16:28:15 08/27/2022 MAMMO, screening, bilateral completed [email or web address] [address], [place], [address], 09/06/2022 16:28:16 08/27/2022 MAMMO, screening, bilateral completed [email or web address] [facility] [address], [place], [address], 09/08/2022 17:35:52 10/05/2022 US, breast, unilateral completed [email or web address] [facility] [address], [place], [address], 11/24/2022 10:21:14 10/05/2022 US, breast, unilateral completed [email or web address] [facility] [address], [place], [address], 12/14/2022 10:03:17 10/05/2022 MAMMO, diagnostic, digital, unilateral completed [facility] [address], [place], [address], 12/14/2022 14:26:54 Procedure Notes None recorded. Medical Equipment None Reported. Allergies No known drug allergies Medications Name Sig Start Date Stop Date Status Note LastModified by Organization Details LastModified Time celecoxib 200 mg capsule 04/07 completed Not Available Not Available Not Available rivastigm ine 1.5 mg capsule 09/08 completed Not Available Not Available Not Available azelastin e 0.05 % eye drops 10/18 completed Not Available Not Available Not Available venlafaxi ne ER 37.5 mg capsule,e xtended release 24 hr take 1 capsule by oral route every day with food 10/15 completed Prescrib ed Elsewher e: Yes Loca tion: Jeremie kaufman [facility] odify By: anne tucker DateTime : 04/03/20 19 10:30:00 AM Not Available Not Available Not Available atorvasta tin 20 mg tablet TAKE 1 TABLET BY MOUTH EVERY DAY active Not Available Not Available No t Available donepezil 5 mg tablet 10/15 completed Not Available Not Available Not Available trazodone 50 mg tablet 09/08 completed Not Available Not Available Not Available tramadol 37.5 mg-acetam inophen 325 mg tablet TK 1 TO 2 TS PO Q 6 H PRF PAIN 10/15 completed Not Available Not Available Not Available hydrocodo ne 5 mg-acetam inophen 325 mg tablet 10/15 completed Not Available Not Available Not Available donepezil 10 mg tablet 09/08 completed Not Available Not Available Not Available sertralin e 100 mg tablet take 1 tablet (100MG) by oral route every day 10/15 completed Prescrib ed Elsewher e: Yes Loca tion: Jeremie kaufman [facility]ify By: nya alcocer DateTime : 10/09/19 14 10:30:00 AM Not Available Not Available Not Available Vesna Low Dose Aspirin 81 mg tablet,de layed release take 1 tablet by oral route every day 10/15 completed Prescrib ed Elsewher e: Yes [facility] By: nya alcocer DateTime : 09/28/19 13 10:30:00 AM Not Available Not Available Not Available amoxicill in 500 mg tablet take 1 tablet (500MG) by oral route 3 times every day for 10 days 09/29 completed Prescrib ed Elsewher e: No Locat ion: Jeremie kaufman [facility] odify By: cmedical Encount er DateTime : 09/21/19 12 02:21:34 PM Not Available Not Available Not Available Macrobid 100 mg capsule take 1 capsule (100MG) by oral route every 12 hours with food 11/02 completed Prescrib ed Elsewher e: No Locat ion: Jeremie kaufman [facility] odify By: germaniadical Encount er DateTime : 10/25/19 14 02:03:06 PM Not Available Not Available Not Available azelastin e 137 mcg (0.1 %) nasal spray 10/15 completed Not Available Not Available Not Available methylpre dnisolone 4 mg tablets in a dose pack FPD 10/15 completed Not Available Not Available Not Available sertralin e 50 mg tablet 09/08 completed Not Available Not Available Not Available rivastigm ine 3 mg capsule TAKE 1 CAPSULE BY MOUTH TWICE A DAY active Not Available Not Available No t Available Stanback Headache Powder 650 mg oral packet 10/15 completed Prescrib ed Elsewher e: Yes [facility] By: nya alcocer DateTime : 09/28/19 13 10:30:00 AM Not Available Not Available Not Available memantine 5 mg-10 mg tablets in a dose pack 10/15 completed Not Available Not Available Not Available mirtazapi ne 7.5 mg tablet TAKE 1 TABLET BY MOUTH EVERY DAY NIGHTLY active Not Available Not Available No t Available Calcio Justice 500 mg tablet 10/15 completed Prescrib ed Elsewher e: Yes Loca tion: Jeremie [facility] odify By: georges nesbitt DateTime : 09/16/19 12 10:00:00 AM Not Available Not Available Not Available Fish Oil active Not Available Not Avai lable Not Available Vitamin D active Not Available Not Erin ilable Not Available Calcium 500 active Not Available Not Available Not Available Prolia 60 mg/mL subcutane ous syringe 10/18 completed Prescrib ed Elsewher e: Yes [facility] By: georges nesbitt DateTime : 09/16/19 12 10:00:00 AM Not Available Not Available Not Available Prolia 10/15 completed Not Available Not Available Not Available Vitals Date Recorded Body height Body mass index (BMI) Body weight Provider Name and Address Organization Details Last Updated DateTime 10/15/2021 154.94 cm 27.4 kg/m2 14932.89 masoud Janelle Christianson [facility] 10/15/2021 15:16:47 Date Recorded Systolic blood pressure Diastolic blood pressure Provider Name and Address Organization Details Last Updated DateTime 10/15/2021 132 mm[Hg] 80 mm[Hg] Alisa Ayers, [facility] [address], [place], [address], [facility] 10/15/2021 15:37:02 Date Recorded Body height Body mass index (BMI) Body weight Provider Name and Address Organization Details Last Updated DateTime 09/08/2022 154.94 cm 27.8 kg/m2 06647.8 masoud Janelle Griffith [facility] 09/08/2022 14:16:22 Date Recorded Systolic blood pressure Diastolic blood pressure Provider Name and Address Organization Details Last Updated DateTime 09/08/2022 130 mm[Hg] 82 mm[Hg] Alisa Ayers, [facility] [address], [place], [address], [facility] 09/08/2022 16:42:43 Date Recorded Body height Body mass index (BMI) Body weight Provider Name and Address Organization Details Last Updated DateTime 10/18/2022 154.94 cm 29 kg/m2 36210.07 masoud Janelle Griffith [facility] 10/18/2022 12:17:47 Date Recorded Systolic blood pressure Diastolic blood pressure Provider Name and Address Organization Details Last Updated DateTime 10/18/2022 132 mm[Hg] 83 mm[Hg] Alisa Ayers [facility] [address], [place], [address], [facility] 10/18/2022 12:53:28 Date Recorded Body height Body mass index (BMI) Body weight Provider Name and Address Organization Details Last Updated DateTime 11/16/2022 154.94 cm 29.1 kg/m2 59126.22 g Ellen León [facility] 11/16/2022 11:34:02 Date Recorded Systolic blood pressure Diastolic blood pressure Provider Name and Address Organization Details Last Updated DateTime 11/16/2022 132 mm[Hg] 80 mm[Hg] Alisa Ayers, [facility] [address], [place], [address], [facility] 11/16/2022 12:22:51 Date Recorded Body height Body mass index (BMI) Body weight Systolic blood pressure Diastolic blood pressure Provider Name and Address Organization Details Last Updated DateTime 04/07/2020 162.56 cm 27.6 kg/m2 94716.37 g 132 mm[Hg] 85 mm[Hg] Chrystla Kaplan [facility] 14:41:02 Social History Question Answer Notes LastModified by Organizat ion Details LastModified Time Tobacco Smoking Status Never Smoker Janelle Griffith sarah, [facility] 10/18/2022 12:18:06 What Is Your Level Of Alcohol Consumption? Occasional Information not available 10/15/2021 Are You Blind Or Do You Have Difficulty Seeing? No Information n ot available 10/15/2021 What Is Your Level Of Caffeine Consumption? Occasional Information not available 10/15/2021 In The 14 Days Before Symptom Onset, Have You Had Close Contact With A Laboratory-confirm ed COVID-19 While That Case Was Ill? No Information n ot available 10/18/2022 In The 14 Days Before Symptom Onset, Have You Had Close Contact With A Person Who Is Under Investigation For COVID-19 While That Person Was Ill? No Information not available 10/18/2022 Have You Been To An Area Known To Be High Risk For COVID-19? No Information not available 10/18/2022 Are You Deaf Or Do You Have Serious Difficulty Hearing? No Information not available 10/15/2021 What Type Of Diet Are You Following? REGULAR Information n ot available 10/15/2021 What Is The Highest Grade Or Level Of School You Have Completed Or The Highest Degree You Have Received? [id number] Information not available 10/18/2022 What Is Your Occupation? Retired Information not available 10/18/2022 Are There Any Guns Present In Your Home? No Information not available 10/18/2022 Do You Use Protection During Sex? Usually Information not available 10/18/2022 Do You Use Your Seat Belt Or Car Seat Routinely? Yes Information not available 10/15/2021 Do You Have Smoke And Carbon Monoxide Detectors In Your Home? Yes Information not available 10/15/2021 How Much Tobacco Do You Smoke? No Information not available 10/18/2022 Do You Feel Stressed (tense, Restless, Nervous, Or Anxious, Or Unable To Sleep At Night)? [id number] Information not available 10/15/2021 Do You Use Any Illicit Or Recreational Drugs? No Information not available 10/15/2021 Do You Use Sunscreen Routinely? Yes Information not available 10/15/2021 Have You Used IV Drugs? No Information not available 10/18/2022 Sex: Unknown Functional Status Question Answer Note LastModified by Organizat ion Details LastModified Time Do you have difficulty walking or climbing stairs? No Information not available 10/18/2022 Are you able to walk? YESWOREST Information not available 10/15/2021 Are you able to care for yourself? Yes Information not available 10/18/2022 Do you have difficulty dressing or bathing? No Information not available 10/18/2022 What is your exercise level? Occasional Information not available 10/15/2021 Mental Status None recorded. Family History Relationship Description Onset Age of this Age Resolved Age Notes LastModified by Organization Details LastModified Time Mother Hypertensive disorder [email or web address] Not available 2019 14:42:31 Mother Disorder of coronary artery [email or web address] Not available 2022 12:08:53 Mother Alzheimer's disease [email or web address] Not available 2022 12:08:53 Mother Carcinoma in situ of stomach [email or web address] Not available 2022 12:08:53 Son Hypertensive disorder [email or web address] Not available 2019 14:42:31 Son Disorder of coronary artery [email or web address] Not available 2022 12:08:53 Father Disorder of coronary artery [email or web address] Not available 2022 12:08:53 Father Alzheimer's disease [email or web address] Not available 2022 12:08:53 Father Diabetes mellitus [email or web address] Not available 2019 14:43:14 Medical History Condition Response Allergies (Food, seasonal, environmental ) N Other Y Breast Cancer N Drug/Latex Allergies/Reactions N Blood Transfusion N Dermatologic Disorders N Lung Disease N Defects or Inherited Disease N Breast Problem N Gestational Diabetes N Hematologic disorders N Anesthesia Complications N History of STI N Deep Vein Thrombosis N Polycystic ovary syndrome N Anxiety Disorder N Autoimmune disease N Arthritis N Infertility N Polyps N Acid Reflux (GERD) N History of abnormal pap Y Cancer N Stroke N Varicosities N Neurologic/Epilepsy N Endometriosis N High Cholesterol Y Headaches N Fibromyalgia N Kidney Disease N Heart Problems N Kidney or Bladder Problems N Thyroid Problems N GI Problems N Eating Disorder N Anemia N Art (IVF or FET) N Psychiatric Illness N Ovarian Cancer N Diabetes N Pulmonary (TB, Asthma) N Hepatitis/Liver Disease N No Past Medical History N Eczema N Urinary Tract Infection N Abuse/Domestic Violence N Asthma N Trauma/Violence N Depression/ depression Y Heart Disease N Pre-Eclampsia N Hypertension N Osteoporosis N Thrombophilias N Gynecological History Statement/Question Response Abnormal Pap Y Date of Last Mammogram 08/27/2022 STIs/STDs Y HPV Vaccine N Current Control Method Menopause If Post Menopausal, Age at Menopause 53 Sexually Active? N Menses Monthly N Age of first menstrual cycle 13 Date of Last Pap Smear 10/15/2021 Sexual Problems? N LMP Approximate Obstetrics History GPAL:G 6 P 0 0 0 6 Type Value Living 6 Total 6 Past Encounters Encounter ID Performer Location Encounter Start Date Encounter Closed Date Diagnosis/Indication Diagnosis SNOMED-CT Code Diagnosis ICD10 Code Diagnosis Note Alsia Ayers [facility] [address] [address] 04/07/2020 14:18:49 04/07/2020 15:02:43 Gynecologic examination 82297271 Z01.419 Take Calcium with Vitamin D 12-1500mg daily. Do monthly self breast exams. It is advised to get annual flu shot in the fall and she could obtain at [facility] or [facility] care clinic. If you haven't received the Tdap vaccine in the last 10 years you should obtain one as well. Have mammogram yearly, bone density every 2-3 years and colonoscop y every 5-10 years depending on findings and history. Engage in daily exercise of low impact aerobic exercise 45-60 minutes 4-5 times weekly. Avoid tobacco and illicit drugs as well as using moderation with alcohol intake less than 1-2 8 oz beverages daily. This lifestyle behavior pattern will lead to less health conditions and longer life span. If BMI greater than 25 weight watchers or dietary consult advised. Questions have been answered. Patient appears to understand instructio ns, but if you have any further questions call or respond to this email Requests Pap/[place] testing. [place] [id number] Alisa Ayers , [facility] [address] [address] 10/15/2021 14:37:03 10/15/2021 16:38:26 Gynecologic examination [id number] Z01.419 Take Calcium with Vitamin D 12-1500mg daily. Do monthly self breast exams. It is advised to get annual flu shot in the fall and she could obtain at [facility]. If you haven't received the Tdap vaccine in the last 10 years you should obtain one as well. Have mammogram yearly, bone density every 2-3 years and colonoscop y every 5-10 years depending on findings and history. Engage in daily exercise of low impact aerobic exercise 45-60 minutes 4-5 times weekly. Avoid tobacco and illicit drugs as well as using moderation with alcohol intake less than 1-2 8 oz beverages daily. This lifestyle behavior pattern will lead to less health conditions and longer life span. If BMI greater than 25 weight watchers or dietary consult advised. Questions have been answered. Patient appears to understand instructio ns, but if you have any further questions call or respond to this email Pap/hpv sent per request (Had +HPV in 2017, last three pap/hpv screen 2017,2018, 2019 have been neg) STD Screen declined Genetic Screen Discussed Colon Screen UTD PCP Dexa Screen UTD PCP Routine Labs UTD PCPMammo ordered [id number] Alisa Ayers [facility] [address],[place] [address] 09/08/2022 13:43:31 09/08/2022 16:52:38 Mammographic mass of right breast [id number] R92.8 Reviewed recent screening mammo that requires add'l imaging.Un ethan g verbalized & orders printed.Wi l make appt. Time spent in visit is a total of 15 mins with at least 50% of visit consisting of counseling and review of plan of care. [id number] Alisa Ayers [facility] [address],[place] [address] 10/18/2022 12:08:48 10/18/2022 12:56:19 Gynecologic examination [id number] Z01.419 Take Calcium with Vitamin D 12-1500mg daily. Do monthly self breast exams. It is advised to get annual flu shot in the fall and she could obtain at [facility] or [facility] care clinic. If you haven't received the Tdap vaccine in the last 10 years you should obtain one as well. Have mammogram yearly, bone density every 2-3 years and colonoscop y every 5-10 years depending on findings and history. Engage in daily exercise of low impact aerobic exercise 45-60 minutes 4-5 times weekly. Avoid tobacco and illicit drugs as well as using moderation with alcohol intake less than 1-2 8 oz beverages daily. This lifestyle behavior pattern will lead to less health conditions and longer life span. If BMI greater than 25 weight watchers or dietary consult advised. Questions have been answered. Patient appears to understand instructio ns, but if you have any further questions call or respond to this email Pap/hpv sent (2021 +HR HPV)STD Screen declinedGe netic Screen DiscussedC olon Screen UTD PCPDexa Screen UTD PCPRoutine Labs UTD PCPMammo ordered [id number] Alisa Ayers [facility] [address],[place] [address] 11/16/2022 11:17:32 11/16/2022 12:31:43 Atypical squamous cells of undetermined significance on cervical Papanicolaou smear [id number] R87.610 R87.810 See procedure notes.Post -procedure instructio ns reviewed with understand ing verbalized .Will contact with results & next steps in plan of care. Counseled on Pap/HPV guidelines /Testing/R esults with understand ing verbalized .All questions answered to patient satisfacti on. Booklet & additional resources regarding pap smear/HPV/ Pap results given. [email or web address].cancer.g ov/types/c ervical/un derstandin g-abnormal -hpv-and-p ap-test-re sults/unde rstanding- cervical-c hanges.pdf Health Concerns Section Related Observation LastModified by Organization Detai ls LastModified Time None Recorded Concern Status LastModified by Organization Details LastModified Time None Recorded Advance Directives Directive None Recorded Payers Encounter Date Sequence Insurance Name Policy Number Policy Fenton Covered Member ID Fenton Member ID Guarantor Name 04/07/2020 1 [facility] (MEDICARE REPLACEMENT/AD VANTAGE - PPO) [id number] Bre R Dowdy [id number] Bre Garrett Dowdy 10/15/2021 1 [facility] (MEDICARE REPLACEMENT/AD VANTAGE - PPO) [id number] Bre R Dowdy [id number] Bre R Dowdy 09/08/2022 1 [employer] (MEDICARE REPLACEMENT PPO) [id number] Bre R Dowdy [id number] Bre R Dowdy 10/18/2022 1 [employer] (MEDICARE REPLACEMENT PPO) [id number] Bre R Dowdy [id number] Bre R Dowdy 11/16/2022 1 [employer] (MEDICARE REPLACEMENT PPO) [id number] Bre R Dowdy [id number] Bre Tucker Dowquin Notes Date Note Type Note Provider Name and Address Organization Details Recorded Time 04/07/2020 text/html Annual GYNReport ed bypatient.History: no gynecologic complaints Menstrual cycle:Normal menses Urinary symptoms:No hematuria; No incontinence Vulva:No genital lesion Vagina:Normal vaginal discharge Breast:No breast pain; No breast lump; No nipple discharge Sexual complaints:No sexual complaints; No pain during intercourse; Normal libido Menopausal Symptoms:No menopausal symptoms; Normal vaginal lubrication Psychological symptoms:No depression; No anxiety; No PMDD Preventive measures:Encourage self breast examination; Encourage regular exercise; Encourage no tobacco use; Encourage regular mammograms starting age 40; Needs to schedule mammogram; Up to date on colonoscopy screening Alisa Ayers [facility] [address], [place], [address], [facility] 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 Post-MenopausalRep orted bypatient.Menopaus al Symptoms:no menopausal symptoms; normal vaginal lubrication Vaginal Bleeding:history of menopause having occurred; no history of post menopausal bleeding Urinary Symptoms:no hematuria; no incontinence; no nocturia; no urinary frequency Vulva:no genital lesion; no vulvar atrophy Vagina:normal vaginal discharge; no vaginal atrophy Breast:no breast lump; no nipple discharge; no breast pain Sexual Complaints:no sexual complaints Psychological Symptoms:no depression; no anxiety Preventive Measures:encourage regular mammograms starting age 40; encourage self breast examination; encourage regular exercise; encourage no tobacco use; needs to schedule mammogram; history of recent colonoscopy Alisa Ayers [facility] [address], [place], [address], [facility] 10/15/2021 15:38:18 09/08/2022 text/html Here today to review mammo imaging & obtain orders for add'l imaging required. Alisa Ayers [facility] [address], [place], [address], [facility] 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 Post-MenopausalRep orted bypatient.Menopaus al Symptoms:no menopausal symptoms; normal vaginal lubrication Vaginal Bleeding:history of menopause having occurred; no history of post menopausal bleeding Urinary Symptoms:no hematuria; no incontinence; no nocturia; no urinary frequency Vulva:no genital lesion; no vulvar atrophy Vagina:normal vaginal discharge; no vaginal atrophy Breast:no breast lump; no nipple discharge; no breast pain Sexual Complaints:no sexual complaints Psychological Symptoms:no depression; no anxiety Preventive Measures:encourage regular mammograms starting age 40; encourage self breast examination; encourage regular exercise; encourage no tobacco use; mammogram performed within the past year; history of recent colonoscopy Alisa Ayers [facility] [address], [place], [address], [facility] 10/18/2022 12:55:16 11/16/2022 text/html Here today for colposcopy. Alisa Ayers [facility] [address], [place], [address], [facility] 11/16/2022 12:29:15 OBGyn Episode Ob Episode Information Episode Created Date Number of Fetuses Patient Bloodtype Patient rh Status Prepregnancy Weight lbs Domestic Partner Domestic Partner Phone Father Name Airport Ramp Attendant Status 04/07/20 20 1 CLOSED Fetus Data First Name Last Name Admitted to NICU Weight (g) Sex Living Outcome Pediatric Complications Fetus ID Race Codes Race Delivery Type [id number] Vaginal Delivery Anton Calculation Initial Anton Date Initial Exam Date Initial Exam Provider Initial Ultrasound Date Last Menstrual Period Date Ultra Sound Weeks Gestation 0 Eighteen To Twenty Week Anton Update Ultra Sound Date Fundal Height At Umbil Quickening Date Ultra Sound Latest Weeks Gestation Final Anton Confirmed By Final Anton Confirmed Date Final Anton Date Ultra Sound Latest Days Gestation 0 0 Menstrual History Last Menstrual Date Menses Monthly On Bcp Conception Prior Menses Frequency Hcg Plus Date Menarche Onset Age Delivery Information Delivery Date Delivery Type Labor Anesthesia Weeks Gestation Incision Type Labor Labor Length Hrs Delivered By Post Complications Tubal Sterilization Discharge Date Comments 6 Discharge Information Feeding Method Contraceptive Method Maternal HG B and HCT Levels Ob Episode Information Episode Created Date Number of Fetuses Patient Bloodtype Patient rh Status Prepregnancy Weight lbs Domestic Partner Domestic Partner Phone Father Name Airport Ramp Attendant Status 04/07/20 20 1 CLOSED Fetus Data First Name Last Name Admitted to NICU Weight (g) Sex Living Outcome Pediatric Complications Fetus ID Race Codes Race Delivery Type [id number] Vaginal Delivery Anton Calculation Initial Anton Date Initial Exam Date Initial Exam Provider Initial Ultrasound Date Last Menstrual Period Date Ultra Sound Weeks Gestation 0 Eighteen To Twenty Week Anton Update Ultra Sound Date Fundal Height At Umbil Quickening Date Ultra Sound Latest Weeks Gestation Final Anton Confirmed By Final Anton Confirmed Date Final Anton Date Ultra Sound Latest Days Gestation 0 0 Menstrual History Last Menstrual Date Menses Monthly On Bcp Conception Prior Menses Frequency Hcg Plus Date Menarche Onset Age Delivery Information Delivery Date Delivery Type Labor Anesthesia Weeks Gestation Incision Type Labor Labor Length Hrs Delivered By Post Complications Tubal Sterilization Discharge Date Comments 7 Discharge Information Feeding Method Contraceptive Method Maternal HG B and HCT Levels Ob Episode Information Episode Created Date Number of Fetuses Patient Bloodtype Patient rh Status Prepregnancy Weight lbs Domestic Partner Domestic Partner Phone Father Name Airport Ramp Attendant Status 04/07/20 20 1 CLOSED Fetus Data First Name Last Name Admitted to NICU Weight (g) Sex Living Outcome Pediatric Complications Fetus ID Race Codes Race Delivery Type [id number] Vaginal Delivery Anton Calculation Initial Anton Date Initial Exam Date Initial Exam Provider Initial Ultrasound Date Last Menstrual Period Date Ultra Sound Weeks Gestation 0 Eighteen To Twenty Week Anton Update Ultra Sound Date Fundal Height At Umbil Quickening Date Ultra Sound Latest Weeks Gestation Final Anton Confirmed By Final Anton Confirmed Date Final Anton Date Ultra Sound Latest Days Gestation 0 0 Menstrual History Last Menstrual Date Menses Monthly On Bcp Conception Prior Menses Frequency Hcg Plus Date Menarche Onset Age Delivery Information Delivery Date Delivery Type Labor Anesthesia Weeks Gestation Incision Type Labor Labor Length Hrs Delivered By Post Complications Tubal Sterilization Discharge Date Comments 1 Discharge Information Feeding Method Contraceptive Method Maternal HG B and HCT Levels Ob Episode Information Episode Created Date Number of Fetuses Patient Bloodtype Patient rh Status Prepregnancy Weight lbs Domestic Partner Domestic Partner Phone Father Name Airport Ramp Attendant Status 04/07/20 20 1 CLOSED Fetus Data First Name Last Name Admitted to NICU Weight (g) Sex Living Outcome Pediatric Complications Fetus ID Race Codes Race Delivery Type 4668 Vaginal Delivery Anton Calculation Initial Anton Date Initial Exam Date Initial Exam Provider Initial Ultrasound Date Last Menstrual Period Date Ultra Sound Weeks Gestation 0 Eighteen To Twenty Week Anton Update Ultra Sound Date Fundal Height At Umbil Quickening Date Ultra Sound Latest Weeks Gestation Final Anton Confirmed By Final Anton Confirmed Date Final Anton Date Ultra Sound Latest Days Gestation 0 0 Menstrual History Last Menstrual Date Menses Monthly On Bcp Conception Prior Menses Frequency Hcg Plus Date Menarche Onset Age Delivery Information Delivery Date Delivery Type Labor Anesthesia Weeks Gestation Incision Type Labor Labor Length Hrs Delivered By Post Complications Tubal Sterilization Discharge Date Comments 7 Discharge Information Feeding Method Contraceptive Method Maternal HG B and HCT Levels Ob Episode Information Episode Created Date Number of Fetuses Patient Bloodtype Patient rh Status Prepregnancy Weight lbs Domestic Partner Domestic Partner Phone Father Name Airport Ramp Attendant Status 04/07/20 20 1 CLOSED Fetus Data First Name Last Name Admitted to NICU Weight (g) Sex Living Outcome Pediatric Complications Fetus ID Race Codes Race Delivery Type 4670 Vaginal Delivery Anton Calculation Initial Anton Date Initial Exam Date Initial Exam Provider Initial Ultrasound Date Last Menstrual Period Date Ultra Sound Weeks Gestation 0 Eighteen To Twenty Week Anton Update Ultra Sound Date Fundal Height At Umbil Quickening Date Ultra Sound Latest Weeks Gestation Final Anton Confirmed By Final Anton Confirmed Date Final Anton Date Ultra Sound Latest Days Gestation 0 0 Menstrual History Last Menstrual Date Menses Monthly On Bcp Conception Prior Menses Frequency Hcg Plus Date Menarche Onset Age Delivery Information Delivery Date Delivery Type Labor Anesthesia Weeks Gestation Incision Type Labor Labor Length Hrs Delivered By Post Complications Tubal Sterilization Discharge Date Comments 4 Discharge Information Feeding Method Contraceptive Method Maternal HG B and HCT Levels Ob Episode Information Episode Created Date Number of Fetuses Patient Bloodtype Patient rh Status Prepregnancy Weight lbs Domestic Partner Domestic Partner Phone Father Name Airport Ramp Attendant Status 10/16/19 22 1 CLOSED Fetus Data First Name Last Name Admitted to [facility] Weight (g) Sex Living Outcome Pediatric Complications Fetus ID Race Codes Race Delivery Type M [id number] Primary Anton Calculation Initial Anton Date Initial Exam Date Initial Exam Provider Initial Ultrasound Date Last Menstrual Period Date Ultra Sound Weeks Gestation 0 Eighteen To Twenty Week Anton Update Ultra Sound Date Fundal Height At Umbil Quickening Date Ultra Sound Latest Weeks Gestation Final Anton Confirmed By Final Anton Confirmed Date Final Anton Date Ultra Sound Latest Days Gestation 0 0 Menstrual History Last Menstrual Date Menses Monthly On Bcp Conception Prior Menses Frequency Hcg Plus Date Menarche Onset Age Delivery Information Delivery Date Delivery Type Labor Anesthesia Weeks Gestation Incision Type Labor Labor Length Hrs Delivered By Post Complications Tubal Sterilization Discharge Date Comments 5 Discharge Information Feeding Method Contraceptive Method Maternal HG B and HCT Levels
--- NOTE | 2024-09-09 23:28 | ECG_ITS ---
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
--- OUTSIDE RECORDS SUMMARY | 2024-09-09 23:28 | XMS_ITS | Clinical Summary ---
Author Organization [facility] Address [address] [place] [address] Care Team Providers Care Senior Analyst Programmer Name Role Phone Kole Pond MD Primary Care Provider [phone] Source Comments [facility],non-owned Affiliates and Associated Physician Practices is amultiple site organization consisting of ambulatory clinics and hospital sitesin [place], [place], [place] and [place]. This disclosure is being madepursuant to the Care Everywhere program and may not contain all information available regarding this patient. Last updated 18.[facility] Medications * Be aware that medications may not be up to date on this document. Alwaysverify current medications with the patient. Medication Sig Dispensed Refills Start Date End Date Status atorvastatin (Lipitor) 20 MG tablet Take 1 (one) tablet by mouth once daily 10/14/2023 Active memantine (Namenda) 5 MG tablet Take 1 (one) tablet by mouth 2 times daily 05/16/2024 Active mirtazapine (Remeron) 15 MG tablet Take 1 (one) tablet by mouth at bedtime 10/10/2023 01/02/2025 Active rivastigmine (Exelon) 13.3 MG/24HR patch Apply 1 (one) patch to skin once daily 05/16/2024 Active Active Problems Problem Noted Date Diagnosed Date Slurred speech 06/29/2024 Altered mental status, unspe cified altered mental status type 06/29/2024 Left-sided weakness 06/29/2024 Encounters Date Type Department Care Team Description 06/29/2024 3:29 PM BILLING SUPERVISOR - 07/01/2024 4:22 PM [facility] Hospital Encounter [facility] 6S ACUTE [address] [place] [id number] Navneet Ríos MD Walentik, Anne C, DO Fernelius, Joshua, MD Akyuz Yesilyaprak, Kevser, MD Internal Medicine Discharge Disposition: Home or Self Care 06/29/2024 Travel from Last 3 Months Social History Tobacco Use Types Packs/Day Years Used Date Smoking Tobacco: Never Assessed Sex and Gender Information Value Date Recorded Sex Assigned at Not on file Gender Identity Not on file Sexual Orientation Not on file Last Filed Vital Signs Vital Sign Reading Time Taken Comments Blood Pressure 128/74 07/01/2024 8:51 AM BILLING SUPERVISOR Pulse 68 07/01/2024 8:51 AM BILLING SUPERVISOR Temperature 36.4 C (97.5 F) 07/01/2024 8:51 AM BILLING SUPERVISOR Respiratory Rate 20 07/01/2024 8:51 AM BILLING SUPERVISOR Oxygen Saturation 99% 07/01/2024 8:51 AM BILLING SUPERVISOR Inhaled Oxygen Concentration - - Weight 62.1 kg (137 lb) 07/01/2024 8:51 AM BILLING SUPERVISOR Height 165 cm (5' 4.96 ) 07/01/2024 8:51 AM BILLING SUPERVISOR Body Mass Index 22.83 07/01/2024 8:51 AM BILLING SUPERVISOR Plan of Treatment Health Maintenance Due Date Last Done Comments DTAP/TDAP/TD VACCINES (1 - Tdap) 1960 PNEUMOCOCCAL VACCINE 50+ (1 of 1 - PCV) 1991 ZOSTER VACCINE (1 of 2) 1991 Respiratory Syncytial Virus (RSV) Vaccine Pt: or over 60 yrs (1 - 1-dose 75+ series) 2016 COVID-19 VACCINE ( season) 2024 07/06/2022, 07/01/2021, 09/05/2020, Additional history exists INFLUENZA VACCINE (#1) 2024 3, 05/26/2022, 05/19/2021, Additional history exists DEPRESSION SCREENING 07/18/2024 MEDICARE AWV CALENDAR YEAR 2024 BONE DENSITY TESTING Completed 04/15/2021, 04/06/2019, 03/03/2016, Additional history exists HEPATITIS B VACCINE Aged Out No longe r eligible based on patient's age to complete this topic HIB VACCINE Aged Out No longer eligi ble based on patient's age to complete this topic HPV VACCINE Aged Out No longer eligi ble based on patient's age to complete this topic MENINGOCOCCAL (Group B) VACCINE Aged Out No longer eligible based on patient's age to complete this topic MENINGOCOCCAL VACCINE Aged Out No joe mindy eligible based on patient's age to complete this topic Procedures Procedure Name Priority Date/Time Associated Diagnosis Comments CARDIAC EKG ORDER 07/02/2024 1:1 9 PM BILLING SUPERVISOR ECHO COMPLETE Routine 07/01/2024 11:07 AM BILLING SUPERVISOR Slurred speech FERRITIN Routine 06/30/2024 5:48 AM BILLING SUPERVISOR Left-sided weakness IRON + TRANSFERRIN PANEL Routine 06/30/2024 5:48 AM BILLING SUPERVISOR Left-sided weakness CALCIUM IONIZED WHOLE BLOOD AM Draw 06/30/2024 5:47 AM BILLING SUPERVISOR Left-sided weakness RETIC COUNT AM Draw 06/30/2024 5:47 AM BILLING SUPERVISOR Left-sided weakness RENAL FUNCTION PANEL AM Draw 06/30/2024 5:47 AM BILLING SUPERVISOR Left-sided weakness CULTURE BLOOD Timed 06/29/2024 9:37 PM BILLING SUPERVISOR Left-sided weakness CULTURE BLOOD Timed 06/29/2024 9:30 PM BILLING SUPERVISOR Left-sided weakness MRI BRAIN WO CONTRAST STAT 06/29/2024 8:25 PM BILLING SUPERVISOR Slurred speech BLOOD TYPE VERIFICATION STAT 06/29/2024 7:35 PM BILLING SUPERVISOR SARS-COV-2 (COVID-19) FLU A/B RSV PCR RAPID STAT 06/29/2024 7:35 PM BILLING SUPERVISOR Dehydration XR ABDOMEN KUB PORTABLE STAT 06/29/2024 7:30 PM BILLING SUPERVISOR Dehydration XR CHEST 1VW PORTABLE STAT 06/29/2024 7:19 PM BILLING SUPERVISOR Dehydration TROPONIN-I HIGH SENSITIVE REFLEX 1HOUR Timed 06/29/2024 6:12 PM BILLING SUPERVISOR URINALYSIS REFLEX MICROSCOPIC REFLEX CULTURE STAT 06/29/2024 5:11 PM BILLING SUPERVISOR TYPE + SCREEN PANEL STAT 06/29/2024 4 :27 PM BILLING SUPERVISOR T4 FREE STAT 06/29/2024 4:27 PM BILLING SUPERVISOR TSH REFLEX FREE T4 STAT 06/29/2024 4: 27 PM BILLING SUPERVISOR TROPONIN-I HIGH SENSITIVE BASELINE + 1HR STAT 06/29/2024 4:27 PM BILLING SUPERVISOR PT-INR SLH STAT 06/29/2024 4:27 PM BILLING SUPERVISOR COMPREHENSIVE METABOLIC PANEL STAT 06/29/2024 4:27 PM BILLING SUPERVISOR CBC W AUTO DIFFERENTIAL STAT 06/29/2024 4:[address] ANGIO BRAIN NECK STROKE STAT 06/29/2024 3:52 PM BILLING SUPERVISOR Slurred speech CT BRAIN STROKE STAT 06/29/2024 3:51 PM BILLING SUPERVISOR Slurred speech CREATININE - POCT INTERFACED Routine 06/29/2024 3:40 PM BILLING SUPERVISOR INR WHOLE BLOOD - POINT OF CARE (IP) STROKE Routine 06/29/2024 3:39 PM BILLING SUPERVISOR from Last 3 Months Results * CARDIAC EKG ORDER (07/02/2024 1:19 PM BILLING SUPERVISOR) Narrative 07/02/2024 1:19 PM BILLING SUPERVISOR Ordered by an unspecified provider. Scanned Document CARDIAC SERVICES ORD ERABLES * ECHO COMPLETE (07/01/2024 11:07 AM BILLING SUPERVISOR) IVSd 2D 0.816 cm [facility] I PACS LVIDd 4.34 cm [facility] I PACS LVIDs 2.611 cm [facility] I PACS LVOT diam 1.988 cm [facility] I PACS LVPWd 0.899 cm [facility] I PACS LV biplane EF 76.697 % [facility] LV A2C EF 67.732 % [facility] I PACS LV A4C EF 83.172 % [facility] I PACS LV EDV A2C 46.213 ml [facility] CV [facility]U JI PACS LV EDV A4C 40.746 ml [facility] CV FU JI PACS LV ESV A2C 14.912 ml [facility] CV FU JI PACS LV ESV A4C 6.857 ml [facility] CV FU JI PACS LVOT pk eliecer 125.727 cm/s [facility] CV F U PACS LVOT VTI 25.596 cm [facility] I PACS RV-pelayo basal diam 3.178 cm [facility] PACS RVIDd 3.321 cm [facility] I PACS RVOT diam Doppler 1.976 cm [facility] RVOT pk eliecer 93.569 cm/s [facility] CV F U PACS RVOT VTI 16.746 cm [facility] I PACS LA size 4.134 cm [facility] I PACS LA vol BP 32.458 ml [facility] I PACS RA area 11.611 cm [facility] AV mn grad 7.873 mmHg [facility] CV [facility]U JI PACS AV pk eliecer 181.981 cm/s [facility] I PACS AV VTI 32.725 cm [facility] I PACS MV A pk eliecer 92.185 cm/s [facility] CV F U PACS MV E pk eliecer 80.185 cm/s S[facility] CV F U PACS MV E' lateral eliecer 12.932 cm/s [facility] MV mn grad 1.971 mmHg [facility] CV FU JI PACS MV VTI 22.617 cm [facility] I PACS PV pk eliecer 126.327 cm/s [facility] I PACS PV VTI 20.496 cm SSM CV FUJ I PACS TAPSE 2.622 cm [facility] CV FUJ I PACS TR pk eliecer 281.775 cm/s SSM CV FUJ I PACS Ascending aorta 2.97 cm SSM CV FUJI PACS IVC Diam Expiration 0.923 cm [facility] CV FUJI PACS ST junction 2.754 cm SSM CV F UJI PACS LA vol index 0.019 l/m SSM CV FUJI PACS Myocardial strain charge 2 unitless SSM CV FUJI PACS Anatomical Region Laterality Modality Ultrasound 07/01/2024 10:1 5 AM BILLING SUPERVISOR Narrative 07/01/2024 12:21 PM BILLING SUPERVISOR Summary * The left ventricle is normal in size with normal systolic function and an estimated ejection fraction of > 70% by visual estimate. Left ventricular wall motion is normal. * The left ventricular diastolic function is normal. * Right ventricle is normal in size with normal systolic function. * The pulmonary artery systolic pressure is normal, 35 mmHg. * No agitated saline study was performed. Patient Info Name: Bre Barillas Age: 84 years : 1940 Gender: Female Ht: 65 in Wt: 137 lb BSA: 1.69 m2 HR: 82 bpm BP: 128 / 74 mmHg Heart Rhythm: Tachycardia Exam Date: 07/01/2024 10:15 AM Patient Status: OPO Study Site: [facility] Primary Location: [facility] EStudy Info Technical Quality: Good Exam Type: ECHO COMPLETE Indications R47.81 - Slurred speech Procedure(s) * A complete 2D, color Doppler, spectral Doppler, and M-Mode transthoracic echocardiogram was performed. Staff Referring Physician: Devendra Roberts Ordering Provider: Devendra Roberts Attending Physician: Devendra Roberts Core Winder: Russell Manzo Left Ventricle The left ventricle is normal in size. Left ventricular systolic function is normal with an estimated ejection fraction of > 70% by visual estimate. The left ventricular mass is normal. Left ventricular segmental wall motion is normal. The left ventricular diastolic function is normal. Right Ventricle The right ventricle is normal in size. Right ventricular systolic function is normal. Left Atrium The left atrium is normal in size with a left atrial volume index of 19 ml/m2 by BP MOD. Right Atrium The right atrium is normal in size. Atrial Septum Intact interatrial septum visualized by 2D and color Doppler imaging. Aortic Valve The aortic valve is trileaflet. There is no aortic valve stenosis. There is no aortic valve regurgitation. Pulmonic Valve The pulmonic valve is normal. There is no pulmonic valve stenosis. There is no pulmonic regurgitation. Mitral Valve The mitral valve is normal. There is no mitral valve stenosis. There is mild mitral valve regurgitation. Tricuspid Valve The tricuspid valve is normal. There is mild tricuspid valve regurgitation. The pulmonary artery systolic pressure is normal, 35 mmHg. Inferior Vena Cava The inferior vena cava is normal in size (< 2.1 cm). There is > 50% collapse of the IVC upon inspiration with an estimated right atrial pressure of 3 mmHg. Pericardium/Pleural There is no pericardial effusion. Aorta The aortic root at the sinus of Valsalva is normal in size. The ascending aorta is normal in size. Measurements Left Ventricular Outflow Tract Name Value Normal LVOT 2D LVOT Diameter 2.0 cm LVOT Area 3.1 cm2 LVOT Doppler LVOT Peak Velocity 1.3 m/s LVOT Peak Gradient 6 mmHg LVOT Mean Velocity 86.22 cm/s LVOT Mean Gradient 3 mmHg LVOT VTI 25.6 cm LVOT VTI/AV VTI Ratio 0.8 LVOT Stroke Volume 79 ml LVOT Stroke Volume Index 47 ml/m2 35-58 LVOT CO 6.5 l/min LVOT CI 3.9 l/min/m2 Pulmonic Valve Name Value Normal PV 2D RVOT Diameter (2D) 2.0 cm 1.7-2.7 RVOT Doppler RVOT Peak Velocity 0.9 m/s RVOT Peak Gradient 4 mmHg RVOT Mean Gradient 2 mmHg PV Doppler PV Peak Velocity 1.3 m/s PV Peak Gradient 6 mmHg PV Mean Gradient 3 mmHg PV Area (Cont Eq VTI) 2.50 cm2 PV Area Index (Cont Eq VTI) 1.48 cm2/m2 PV Area (Cont Eq Eliecer) 2.3 cm2 PV Area Index (Cont Eq Eliecer) 1.34 cm2/m2 Mitral Valve Name Value Normal MV Doppler MV Peak Gradient 5 mmHg MV Mean Gradient 2 mmHg MV DI (VTI) 0.88 MV PHT 64 ms MV Area (PHT) 3.45 cm2 4.00-5.00 MV Area (Cont Eq VTI) 3.51 cm2 MV Diastolic Function MV E Peak Velocity 0.8 m/sec MV A Peak Velocity 0.9 m/sec MV E/A 0.9 MV Decel Time (PW) 220 ms MV A Wave Duration 108 ms MV Annular TDI MV Septal e' Velocity 5 cm/s >=8 MV E/e' (Septal) 15 <=8 MV Lateral e' Velocity 13 cm/s >=10 MV E/e' (Lateral) 6 <=8 MV e' Average 9 cm/s MV E/e' (Average) 11 Tricuspid Valve Name Value Normal TV Regurgitation Doppler TR Peak Velocity 2.8 m/s TR Peak Gradient 32 mmHg Estimated PAP/RSVP RA Pressure 3 mmHg <=5 PA Systolic Pressure 35 mmHg <35 RV Systolic Pressure 35 mmHg <36 TV Annular TDI TV Lateral Neelam s' Velocity 21 cm/s 10-19 Aorta Name Value Normal Ascending Aorta Ao Root Diameter (2D) 2.7 cm Ao Root Diam Index (2D) 1.6 cm/m2 Ao Sinotub Junction Diameter 2.8 cm 2.3-2.9 Asc Ao Diameter 3.0 cm 1.9-3.5 Asc Ao Diameter Index 1.8 cm/m2 1.0-2.2 Septae/Shunt/Generic Name Value Normal Qp/Qs Qp/Qs 0.6 Venous Name Value Normal IVC/SVC IVC Diameter 0.9 cm <=2.1 Aortic Valve Name Value Normal AV Doppler AV Peak Velocity 1.82 m/s AV Peak Gradient 13 mmHg AV Mean Gradient 8 mmHg AV VTI 33 cm AV Area (Cont Eq VTI) 2.43 cm2 >=2.00 AV Area (Cont Eq Eliecer) 2.14 cm2 AV DI (VTI) 0.78 AV DI (Eliecer) 0.69 AV Regurgitation 2D LVOT Area 3.10 cm2 Ventricles Name Value Normal LV Dimensions 2D/MM IVS Diastolic Thickness (2D) 0.8 cm 0.6-0.9 LVID Diastole (2D) 4.3 cm 3.8-5.2 LVPW Diastolic Thickness (2D) 0.9 cm 0.6-0.9 IVS Systolic Thickness (2D) 0.9 cm LVID Systole (2D) 2.6 cm 2.2-3.5 LVPW Systolic Thickness (2D) 1.0 cm LV Mass (2D Cubed) 72 g 67-162 LV Mass Index (2D Cubed) 42 g/m2 43-95 Relative Wall Thickness (2D) 0.41 <=0.42 LV Fractional Shortening/Ejection Fraction 2D/MM LV Fractional Shortening (2D) 40 % 27-45 LV EF (2D Teicholz) 71 % 54-74 LV Diastolic Volume (4C MOD) 41 ml LV EF (4C MOD) 83 % LV Diastolic Volume (2C MOD) 46 ml LV EF (2C MOD) 68 % LV Diastolic Volume (BP MOD) 45 ml 46-106 LV Diastolic Volume Index (BP MOD) 26 ml/m2 29-61 LV Systolic Volume (BP MOD) 10 ml 14-42 LV Systolic Volume Index (BP MOD) 6 ml/m2 8-24 LV EF (BP MOD) 77 % 54-74 LV Diastolic Length (4C) 6.7 cm LV Systolic Length (4C) 4.7 cm LV Stroke Volume (4C MOD) 34 ml RV Dimensions 2D/MM RVID Diastole (2D) 3.3 cm 2.5-3.5 RVID Systole (2D) 2.9 cm RV Basal Diastolic Dimension 3.2 cm 2.5-4.1 RV Diastolic Length (4C) 5.6 cm 5.9-8.3 RV Diastolic Area (4C) 0 cm2 8-20 RV Systolic Area (4C) 0 cm2 3-11 TAPSE 2.6 cm >=1.7 RV Fractional Shortening 2D RV FAC (4C) -126 % >=35 Atria Name Value Normal LA Dimensions LA Dimension (2D) 4.1 cm 2.7-3.8 LA Dimen Index (2D) 2.4 cm/m2 LA Volume (BP MOD) 32 ml LA Volume Index (BP MOD) 19 ml/m2 16-34 RA Dimensions RA Area (4C) 12 cm2 <=18 RA Area (4C) Index 7 cm2/m2 Report Signatures Finalized by Earline Cameron MD on 07/01/2024 12:21 PM Procedure Note Earline Cameron MD - 07/01/2024 Summary * The left ventricle is normal in size with normal systolic function andan estimated ejection fraction of > 70% by visual estimate. Left ventricularwall motion is normal. * The left ventricular diastolic function is normal. * Right ventricle is normal in size with normal systolic function. * The pulmonary artery systolic pressure is normal, 35 mmHg. * No agitated saline study was performed. Patient Info Name: Bre Barillas Age: 84 years : 1940 Gender: Female Ht: 65 in Wt: 137 lb BSA: 1.69 m2 HR: 82 bpm BP: 128 / 74 mmHg Heart Rhythm: Tachycardia Exam Date: 07/01/2024 10:15 AM Patient Status: OPO Study Site: [facility] Primary Location: [facility] Info Technical Quality: Good Exam Type: ECHO COMPLETE Indications R47.81 - Slurred speech Procedure(s) * A complete 2D, color Doppler, spectral Doppler, and M-Modetransthoracic echocardiogram was performed. Staff Referring Physician: Devendra Roberts Ordering Provider: Devendra Roberts Attending Physician: Devendra Roberts Core Winder: Russell Manzo Left Ventricle The left ventricle is normal in size. Left ventricular systolic functionis normal with an estimated ejection fraction of > 70% by visual estimate.The left ventricular mass is normal. Left ventricular segmental wall motionis normal. The left ventricular diastolic function is normal. Right Ventricle The right ventricle is normal in size. Right ventricular systolicfunction is normal. Left Atrium The left atrium is normal in size with a left atrial volume index of19 ml/m2 by BP MOD. Right Atrium The right atrium is normal in size. Atrial Septum Intact interatrial septum visualized by 2D and color Doppler imaging. Aortic Valve The aortic valve is trileaflet. There is no aortic valve stenosis. Thereis no aortic valve regurgitation. Pulmonic Valve The pulmonic valve is normal. There is no pulmonic valve stenosis. Thereis no pulmonic regurgitation. Mitral Valve The mitral valve is normal. There is no mitral valve stenosis. There ismild mitral valve regurgitation. Tricuspid Valve The tricuspid valve is normal. There is mild tricuspid valveregurgitation. The pulmonary artery systolic pressure is normal, 35 mmHg. Inferior Vena Cava The inferior vena cava is normal in size (< 2.1 cm). There is > 50%collapse of the IVC upon inspiration with an estimated right atrial pressure of 3mmHg. Pericardium/Pleural There is no pericardial effusion. Aorta The aortic root at the sinus of Valsalva is normal in size. Theascending aorta is normal in size. Measurements Left Ventricular Outflow Tract Name Value Normal LVOT 2D LVOT Diameter 2.0 cm LVOT Area 3.1 cm2 LVOT Doppler LVOT Peak Velocity 1.3 m/s LVOT Peak Gradient 6 mmHg LVOT Mean Velocity 86.22 cm/s LVOT Mean Gradient 3 mmHg LVOT VTI 25.6 cm LVOT VTI/AV VTI Ratio 0.8 LVOT Stroke Volume 79 ml LVOT Stroke Volume Index 47 ml/m2 35-58 LVOT CO 6.5 l/min LVOT CI 3.9 l/min/m2 Pulmonic Valve Name Value Normal PV 2D RVOT Diameter (2D) 2.0 cm 1.7-2.7 RVOT Doppler RVOT Peak Velocity 0.9 m/s RVOT Peak Gradient 4 mmHg RVOT Mean Gradient 2 mmHg PV Doppler PV Peak Velocity 1.3 m/s PV Peak Gradient 6 mmHg PV Mean Gradient 3 mmHg PV Area (Cont Eq VTI) 2.50 cm2 PV Area Index (Cont Eq VTI) 1.48 cm2/m2 PV Area (Cont Eq Eliecer) 2.3 cm2 PV Area Index (Cont Eq Eliecer) 1.34 cm2/m2 Mitral Valve Name Value Normal MV Doppler MV Peak Gradient 5 mmHg MV Mean Gradient 2 mmHg MV DI (VTI) 0.88 MV PHT 64 ms MV Area (PHT) 3.45 cm2 4.00-5.00 MV Area (Cont Eq VTI) 3.51 cm2 MV Diastolic Function MV E Peak Velocity 0.8 m/sec MV A Peak Velocity 0.9 m/sec MV E/A 0.9 MV Decel Time (PW) 220 ms MV A Wave Duration 108 ms MV Annular TDI MV Septal e' Velocity 5 cm/s >=8 MV E/e' (Septal) 15 <=8 MV Lateral e' Velocity 13 cm/s >=10 MV E/e' (Lateral) 6 <=8 MV e' Average 9 cm/s MV E/e' (Average) 11 Tricuspid Valve Name Value Normal TV Regurgitation Doppler TR Peak Velocity 2.8 m/s TR Peak Gradient 32 mmHg Estimated PAP/RSVP RA Pressure 3 mmHg <=5 PA Systolic Pressure 35 mmHg <35 RV Systolic Pressure 35 mmHg <36 TV Annular TDI TV Lateral Neelam s' Velocity 21 cm/s 10-19 Aorta Name Value Normal Ascending Aorta Ao Root Diameter (2D) 2.7 cm Ao Root Diam Index (2D) 1.6 cm/m2 Ao Sinotub Junction Diameter 2.8 cm 2.3-2.9 Asc Ao Diameter 3.0 cm 1.9-3.5 Asc Ao Diameter Index 1.8 cm/m2 1.0-2.2 Septae/Shunt/Generic Name Value Normal Qp/Qs Qp/Qs 0.6 Venous Name Value Normal IVC/SVC IVC Diameter 0.9 cm <=2.1 Aortic Valve Name Value Normal AV Doppler AV Peak Velocity 1.82 m/s AV Peak Gradient 13 mmHg AV Mean Gradient 8 mmHg AV VTI 33 cm AV Area (Cont Eq VTI) 2.43 cm2 >=2.00 AV Area (Cont Eq Eliecer) 2.14 cm2 AV DI (VTI) 0.78 AV DI (Eliecer) 0.69 AV Regurgitation 2D LVOT Area 3.10 cm2 Ventricles Name Value Normal LV Dimensions 2D/MM IVS Diastolic Thickness (2D) 0.8 cm 0.6-0.9 LVID Diastole (2D) 4.3 cm 3.8-5.2 LVPW Diastolic Thickness (2D) 0.9 cm 0.6-0.9 IVS Systolic Thickness (2D) 0.9 cm LVID Systole (2D) 2.6 cm 2.2-3.5 LVPW Systolic Thickness (2D) 1.0 cm LV Mass (2D Cubed) 72 g 67-162 LV Mass Index (2D Cubed) 42 g/m2 43-95 Relative Wall Thickness (2D) 0.41 <=0.42 LV Fractional Shortening/Ejection Fraction 2D/MM LV Fractional Shortening (2D) 40 % 27-45 LV EF (2D Teicholz) 71 % 54-74 LV Diastolic Volume (4C MOD) 41 ml LV EF (4C MOD) 83 % LV Diastolic Volume (2C MOD) 46 ml LV EF (2C MOD) 68 % LV Diastolic Volume (BP MOD) 45 ml 46-106 LV Diastolic Volume Index (BP MOD) 26 ml/m2 29-61 LV Systolic Volume (BP MOD) 10 ml 14-42 LV Systolic Volume Index (BP MOD) 6 ml/m2 8-24 LV EF (BP MOD) 77 % 54-74 LV Diastolic Length (4C) 6.7 cm LV Systolic Length (4C) 4.7 cm LV Stroke Volume (4C MOD) 34 ml RV Dimensions 2D/MM RVID Diastole (2D) 3.3 cm 2.5-3.5 RVID Systole (2D) 2.9 cm RV Basal Diastolic Dimension 3.2 cm 2.5-4.1 RV Diastolic Length (4C) 5.6 cm 5.9-8.3 RV Diastolic Area (4C) 0 cm2 8-20 RV Systolic Area (4C) 0 cm2 3-11 TAPSE 2.6 cm >=1.7 RV Fractional Shortening 2D RV FAC (4C) -126 % >=35 Atria Name Value Normal LA Dimensions LA Dimension (2D) 4.1 cm 2.7-3.8 LA Dimen Index (2D) 2.4 cm/m2 LA Volume (BP MOD) 32 ml LA Volume Index (BP MOD) 19 ml/m2 16-34 RA Dimensions RA Area (4C) 12 cm2 <=18 RA Area (4C) Index 7 cm2/m2 Report Signatures Finalized by Earline Cameron MD on 07/01/2024 12:21 PM Devendra Roberts MD ECHO CUPID * (ABNORMAL) IRON + TRANSFERRIN PANEL (06/30/2024 5:48 AM BILLING SUPERVISOR) Iron 70 40 - 150 ug/dL 06/30/2024 6:53 AM [facility] Transferrin 173(L) 174 - 382 mg/dL 06/30/2024 6:53 AM [facility] Transferrin Saturation % 32 16 - 50 % 06/30/2024 6:53 AM [facility] TIBC Calculated 216(L) 240 - 450 ug/dL 06/30/2024 6:53 AM [facility] Blood BLOOD SPECIMEN / Unknown Lab Venipuncture / Unknown 06/30/2024 5:48 AM BILLING SUPERVISOR 06/30/2024 5:52 AM BILLING SUPERVISOR Devendra Roberts MD LAB - CHEMISTRY DIANA COOPER Performing Organization Address [facility]/ZIP Co de Phone Number [address] [address], [facility] [phone] * (ABNORMAL) FERRITIN (06/30/2024 5:48 AM BILLING SUPERVISOR) Ferritin 350(H) 13 - 204 ng/mL 06/30/2024 7:06 AM BILLING SUPERVISOR [facility] Blood BLOOD SPECIMEN / Unknown Lab Venipuncture / Unknown 06/30/2024 5:48 AM BILLING SUPERVISOR 06/30/2024 5:52 AM BILLING SUPERVISOR Devendra Roberts MD LAB - CHEMISTRY DIANA COOPER [address] [place] [address], [facility] [phone] * (ABNORMAL) CALCIUM IONIZED WHOLE BLOOD (06/30/2024 5:47 AM BILLING SUPERVISOR) Calcium Ionized 1.35 mmol/L 06/30/2024 5:55 AM [facility] pH 7.47(H) 7.35 - 7.45 pH 06/30/2024 5:55 AM [facility] Ionized Calcium pH Adjusted 1.39(H) 1.19 - 1.34 mmol/L 06/30/2024 5:55 AM [facility] Blood BLOOD SPECIMEN / Unknown Lab Venipuncture / Unknown 06/30/2024 5:47 AM BILLING SUPERVISOR 06/30/2024 5:52 AM [facility] Devendra Roberts MD LAB - CHEMISTRY DIANA COOPER [address] [address], [facility] [phone] * RETIC COUNT (06/30/2024 5:47 AM BILLING SUPERVISOR) Reticulocyte Percent 2.37 0.50 - 2.40 % 06/30/2024 6:32 AM [facility] Reticulocyte Absolute 0.0751 0.0200 - 0.1100 x10E6/uL 06/30/2024 6:32 AM [facility] Ret-HE 34.6 29.0 - 37.9 pg 06/30/2024 6:32 AM [facility] Immature Reticulocyte Fraction 12.5 1.8 - 15.2 % 06/30/2024 6:32 AM [facility] Blood BLOOD SPECIMEN / Unknown Lab Venipuncture / Unknown 06/30/2024 5:47 AM BILLING SUPERVISOR 06/30/2024 6:20 AM [facility] Devendra Roberts MD LAB - HEMATOLOGY ORD RAFA [address] [address], [facility] [phone] * (ABNORMAL) RENAL FUNCTION PANEL (06/30/2024 5:47 AM BILLING SUPERVISOR) BUN 19 7 - 26 mg/dL 06/30/2024 6:48 AM [facility] Creatinine 0.80 0.56 - 0.96 mg/dL 06/30/2024 6:48 AM [facility] Sodium 143 136 - 145 mmol/L 06/30/2024 6:48 AM [facility] Potassium 3.9 3.5 - 4.5 mmol/L 06/30/2024 6:48 AM [facility] Chloride 110(H) 98 - 107 mmol/L 06/30/2024 6:48 AM [facility] CO2 24 22 - 29 mmol/L 06/30/2024 6:48 AM [facility] Glucose 94 70 - 99 mg/dL 06/30/2024 6:48 AM [facility] Albumin 2.9(L) 3.4 - 5.0 g/dL 06/30/2024 6:48 AM [facility] Calcium 9.8 8.4 - 10.2 mg/dL 06/30/2024 6:48 AM [facility] Phosphorus 4.2 2.9 - 5.1 mg/dL 06/30/2024 6:48 AM [facility] Anion Gap 9 6 - 16 06/30/2024 6:48 AM [facility] BUN/Creatinine Ratio 24(H) 7 - 23 06/30/2024 6:48 AM [facility] Osmolality Calculated 298(H) 275 - 295 mOsm/kg 06/30/2024 6:48 AM [facility] eGFR by CKD-EPI 73(L) >=90 mL/min/1.7 3 m2 06/30/2024 6:48 AM [facility] Blood BLOOD SPECIMEN / Unknown Lab Venipuncture / Unknown 06/30/2024 5:47 AM BILLING SUPERVISOR 06/30/2024 6:21 AM [facility]UST Devendra Roberts MD LAB - CHEMISTRY DIANA Mitchell Organization Address City/State/ZIP Co de Phone Number [facility] [address] [place], [place] [phone], [facility] [phone] * CULTURE BLOOD (06/29/2024 9:37 PM BILLING SUPERVISOR) Only the most recent of2 resultswithin the time period is included. Culture No growth day 5 GERTRUDE 07/05/2024 1:30 AM BILLING SUPERVISOR [facility] MICROBIOLOGY Blood PERIPHERAL BLOOD / Unknown Lab Venipuncture / Unknown 06/29/2024 9:37 PM BILLING SUPERVISOR 06/29/2024 9:41 PM BILLING SUPERVISOR Devendra Roberts MD LAB - MICROBIOLOGY O RDERABLES [facility] MICROBIOLOGY [address] [place] [address], [facility] [phone] * MRI Brain Wo Contrast (06/29/2024 8:25 PM BILLING SUPERVISOR) Anatomical Region Laterality Modality Head Magnetic Resonan ce 07/02/2024 10:1 1 AM BILLING SUPERVISOR Impressions 07/02/2024 10:31 AM BILLING SUPERVISOR IMPRESSION: 1. No evidence of restricted diffusion to suggest an acute infarction. > Interpreting Provider: Preeti Philip MD on 07/02/2024 10:31 AM Narrative 07/02/2024 10:31 AM BILLING SUPERVISOR PROCEDURE: MRI BRAIN WO CONTRAST, DATE/TIME OF EXAM: 06/29/2024 8:25 PM, LOCATION [facility] INDICATION: R47.81: Slurred speech ADDITIONAL CLINICAL INFORMATION: Ordering Provider Reason For Exam: Stroke Technologist Note: Does the patient have a pacemaker or defibrillator?->No Does the patient have metal implants or stents?->No Additional: None. EXAMINATION: Magnetic resonance imaging (MRI) of the brain without contrast TECHNIQUE: MRI of the brain was performed without contrast according to standard protocol. COMPARISON: CT of the head from 06/29/2024. FINDINGS: No evidence of acute or chronic hemorrhage is identified. No evidence of acute cerebral infarction is seen. The ventricles are of normal size, shape, and morphology. No mass effect or midline shift is seen. Periventricular and subcortical white matter FLAIR hyperintensities likely represent sequelae of chronic small vessel ischemic disease. There is a prominent perivascular space along the inferior aspect of the left basal ganglia. Additional small perivascular spaces along the right basal ganglion for aspect. 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 All area of encephalomalacia is identified along the left occipitoparietal region. Subtle decreased caliber of the corpus callosum. The corpus callosum and sella appear otherwise grossly unremarkable. The posterior fossa, brainstem, and craniocervical junction appear grossly unremarkable. Other than bilateral cataract extractions, the visualized portions of the orbits appear grossly unremarkable. There is mild paranasal sinus disease. There is minimal opacification in the dependent right mastoid air cells and possibly the left mastoid air cells. The remaining mastoid air cells appear grossly clear. Normal flow voids are demonstrated in the carotid arteries and basilar artery. The calvarium and visualized cervical spine appear normal. Procedure Note Preeti Philip MD - 07/02/2024 PROCEDURE: MRI BRAIN WO CONTRAST, DATE/TIME OF EXAM: 06/29/2024 8:25PM, LOCATION [facility] INDICATION: R47.81: Slurred speech ADDITIONAL CLINICAL INFORMATION: Ordering Provider Reason For Exam: Stroke Technologist Note: Does the patient have a pacemaker ordefibrillator?->No Does the patient have metal implants or stents?->No Additional: None. EXAMINATION: Magnetic resonance imaging (MRI) of the brain withoutcontrast TECHNIQUE: MRI of the brain was performed without contrast according to standard protocol. COMPARISON: CT of the head from 06/29/2024. FINDINGS: No evidence of acute or chronic hemorrhage is identified. No evidence of acute cerebral infarction is seen. The ventricles are of normal size, shape, and morphology. No mass effect or midline shift is seen. Periventricular and subcortical white matter FLAIR hyperintensitieslikely represent sequelae of chronic small vessel ischemic disease. There is a prominent perivascular space along the inferior aspect of the left basal ganglia. Additional small perivascular spaces along the right basal ganglion for aspect. 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 All area of encephalomalacia is identified along the left occipitoparietal region. Subtle decreased caliber of the corpus callosum. The corpus callosum and sella appear otherwise grossly unremarkable. The posterior fossa, brainstem, and craniocervical junction appear grossly unremarkable. Other than bilateral cataract extractions, the visualized portions ofthe orbits appear grossly unremarkable. There is mild paranasal sinusdisease. There is minimal opacification in the dependent right mastoid air cellsand possibly the left mastoid air cells. The remaining mastoid air cellsappear grossly clear. Normal flow voids are demonstrated in the carotidarteries and basilar artery. The calvarium and visualized cervical spine appear normal. IMPRESSION: 1. No evidence of restricted diffusion to suggest an acute infarction. > Interpreting Provider: Preeti Philip MD on 07/02/2024 10:31AM Navneet Lizarraga MD MR ORDERABLES * SARS-COV-2 (COVID-19) FLU A/B RSV PCR RAPID (06/29/2024 7:35 PM BILLING SUPERVISOR) COVID-19 PCR Not detected Not detected 06/29/20 8:14 PM BILLING SUPERVISOR [facility] Influenza A PCR Not detected Not detected 06/29/2024 8:14 PM BILLING SUPERVISOR [facility] Influenza B PCR Not detected Not detected 06/29/2024 8:14 PM BILLING SUPERVISOR [facility] RSV PCR Not detected Not detected 06/29/2024 8:14 PM BILLING SUPERVISOR [facility] Microbiology SPECIMEN FROM NASOPHARYNGEAL STRUCTURE / Unknown Collection / Unknown 06/29/2024 7:35 PM BILLING SUPERVISOR 06/29/2024 7:35 PM BILLING SUPERVISOR [facility] - 06/29/2024 8:14 PM BILLING SUPERVISOR This nucleic acid amplification assay has been authorized by the Food and Drug administration (FDA) under an Emergency Use Authorization (EUA). This test is only authorized for the duration of time the declaration that circumstances exist justifying the authorization of emergency use of in vitro diagnostic tests for detection of SARS-CoV-2 virus and/or diagnosis of COVID-19 infection under section 564(b)(1) of the Act, 21 U.S.C 360bbb-3 (b)(1), unless the authorization is terminated or revoked sooner. Fact Sheets for this EUA assay are available upon request. Devendra Roberts MD LAB - MICROBIOLOGY O [facility] [address] [place] [address], [facility] [phone] * BLOOD TYPE VERIFICATION (06/29/2024 7:35 PM BILLING SUPERVISOR) ABO Rh A POS 06/29/2024 8:2 1 PM BILLING SUPERVISOR [facility] BLOOD BANK LAB Blood Bank BLOOD SPECIMEN / Unknown Venipuncture / Unknown 06/29/2024 7:35 PM BILLING SUPERVISOR 06/29/2024 7:50 PM BILLING SUPERVISOR Navneet Lizarraga MD LAB - BLOOD BAN K ORDERABLES [facility] BLOOD BANK LAB [address] [place] [address], [facility] [phone] * XR Abdomen Kub Portable (06/29/2024 7:30 PM BILLING SUPERVISOR) Anatomical Region Laterality Modality Abdomen Digital Radiogra phy 06/29/2024 7:57 PM BILLING SUPERVISOR Impressions 06/30/2024 8:18 AM BILLING SUPERVISOR IMPRESSION: Nonobstructive bowel gas pattern. Right renal pelvocaliectasis. Report dictated by Hortensia Voss MD (president mortgage company). IIsiah MD have personally reviewed and interpreted this examination/study. > Interpreting Provider: Isiah Arrington MD on 06/30/2024 8:18 AM Narrative 06/30/2024 8:18 AM BILLING SUPERVISOR PROCEDURE: XR ABDOMEN KUB PORTABLE, DATE/TIME OF EXAM: 06/29/2024 7:47 PM, LOCATION [facility] INDICATION: E86.0: Dehydration ADDITIONAL CLINICAL INFORMATION: Ordering Provider Reason For Exam: diarrhea COMPARISON: None. TECHNIQUE: Supine frontal radiograph of the abdomen. FINDINGS: There are no findings to suggest bowel obstruction or pneumatosis. Small punctate calcifications are present projecting over the left normal.. Contrast is present in the bilateral renal calyces and urinary bladder. There is right pelvocaliectasis. No acute bone abnormality is seen. Degenerative changes are present in the spine The lower chest is normal. Procedure Note Isiah Arrington MD - 06/30/2024 PROCEDURE: XR ABDOMEN KUB PORTABLE, DATE/TIME OF EXAM: 06/29/2024 7:47 PM, LOCATION [facility] INDICATION: E86.0: Dehydration ADDITIONAL CLINICAL INFORMATION: Ordering Provider Reason For Exam: diarrhea COMPARISON: None. TECHNIQUE: Supine frontal radiograph of the abdomen. FINDINGS: There are no findings to suggest bowel obstruction or pneumatosis. Small punctate calcifications are present projecting over the leftnormal.. Contrast is present in the bilateral renal calyces and urinary bladder. There is right pelvocaliectasis. No acute bone abnormality is seen. Degenerative changes are present inthe spine The lower chest is normal. IMPRESSION: Nonobstructive bowel gas pattern. Right renal pelvocaliectasis. Report dictated by Hortensia Voss MD (president mortgage company). Isiah Barone MD have personally reviewed and interpreted this examination/study. > Interpreting Provider: Isiah Arrington MD on 06/30/2024 8:18 AM Devendra Roberts MD DIAGNOSTIC IMAGING O RDERABLES * XR Chest 1Vw Portable (06/29/2024 7:19 PM BILLING SUPERVISOR) Anatomical Region Laterality Modality Chest Digital Radiogra phy 06/29/2024 7:59 PM BILLING SUPERVISOR Narrative 06/30/2024 8:16 AM BILLING SUPERVISOR PROCEDURE: XR CHEST 1VW PORTABLE, DATE/TIME OF EXAM: 06/29/2024 7:46 PM, LOCATION [facility] INDICATION: E86.0: Dehydration ADDITIONAL CLINICAL INFORMATION: Ordering Provider Reason For Exam: cough COMPARISON: None. TECHNIQUE: Frontal radiographs of the chest. FINDINGS/IMPRESSION: There is no focal consolidation, pleural effusion, or pneumothorax. The mediastinal and cardiac contours are normal. No acute osseous abnormality is seen. Report dictated by Hortensia Voss M.D. (president mortgage [employer]). Isiah Barone MD have personally reviewed and interpreted this examination/study. > Interpreting Provider: Isiah Arrington MD on 06/30/2024 8:16 AM Procedure Note Isiah Arrington MD - 06/30/2024 PROCEDURE: XR CHEST 1VW PORTABLE, DATE/TIME OF EXAM: 06/29/2024 7:46PM, LOCATION [facility] INDICATION: E86.0: Dehydration ADDITIONAL CLINICAL INFORMATION: Ordering Provider Reason For Exam: cough COMPARISON: None. TECHNIQUE: Frontal radiographs of the chest. FINDINGS/IMPRESSION: There is no focal consolidation, pleural effusion, or pneumothorax. The mediastinal and cardiac contours are normal. No acute osseousabnormality is seen. Report dictated by Hortensia Voss M.D. (president mortgage [employer]). I, Isiah Arrington MD have personally reviewed and interpreted this examination/study. > Interpreting Provider: Isiah Arrington MD on 06/30/2024 8:16 AM Devendra Roberts MD DIAGNOSTIC IMAGING O RDERABLES * TROPONIN-I HIGH SENSITIVE REFLEX 1HOUR (06/29/2024 6:12 PM BILLING SUPERVISOR) Troponin I High Sensitive 8 <=14 ng/L 06/29/2024 7:16 PM [facility] Delta Troponin I HS 06/29/2024 7:16 PM [facility] Comment:Delta value intentio deloris not calculated. Baseline to 1 hour specimen collection interval exceeded. Blood BLOOD SPECIMEN / Unknown Venipuncture / Unknown 06/29/2024 6:12 PM BILLING SUPERVISOR 06/29/2024 6:41 PM BILLING SUPERVISOR Navneet Lizarraga MD LAB - CHEMISTRY ORDERABLES Performing Organization Address City/State/[facility] Co de Phone Number [facility] [address] [place] [phone], [facility] [phone] * (ABNORMAL) URINALYSIS REFLEX MICROSCOPIC REFLEX CULTURE (06/29/2024 5:11 PM BILLING SUPERVISOR) Color UA Yellow Straw, Yellow 06/29/2024 5:47 PM [facility] Clarity UA Slt Cloudy(A) Clear 06/29/2024 5:47 PM [facility] Specific [place] UA 1.031(H) 1.005 - 1.030 06/29/2024 5:47 PM [facility] pH UA 8.0 5.0 - 8.0 pH 06/29/2024 5:47 PM [facility] Protein UA Negative Negative 06/29/2024 5:47 PM [facility] Glucose UA Negative Negative 06/29/2024 5:47 PM [facility] Ketone UA Trace(A) Negative 06/29/2024 5:47 PM [facility] Bilirubin UA Negative Negative 06/29/2024 5:47 PM [facility] Blood UA Negative Negative 06/29/2024 5:47 PM [facility] Nitrite UA Negative Negative 06/29/2024 5:47 PM [facility] Leukocyte Esterase Negative Negative 06/29/2024 5:47 PM [facility] Urobilinogen UA Negative Negative mg/dL 06/29/2024 5:47 PM [facility] Comment UA Microscopic not indicated. 06/29/2024 5:47 PM [facility] Urine URINE SPECIMEN OBTAINED BY CLEAN CATCH PROCEDURE / Unknown Collection / Unknown 06/29/2024 5:11 PM BILLING SUPERVISOR 06/29/2024 5:16 PM [facility] - 06/29/2024 5:47 PM [facility] Navneet Lizarraga MD LAB - URINALYSI S ORDERABLES Performing Organization Address [facility]/State/[facility] Co de Phone Number [facility] [address] [place] [phone], [facility] [phone] * PT-INR [facility] (06/29/2024 4:27 PM BILLING SUPERVISOR) PT 12.9 12.1 - 14.8 Seconds 06/29/2024 5:01 PM [facility] INR 1.0 See Comment 06/29/2024 5:01 PM [facility] Comment:The suggested therap eutic range for standard coumadin (warfarin) therapy is an INR of 2.0-3.0. For high-risk patients (Mechanical Mitral Valve Prosthesis, etc.), the suggested prophylactic therapeutic range is an INR of 2.5-3.5. Blood BLOOD SPECIMEN / Unknown Venipuncture / Unknown 06/29/2024 4:27 PM BILLING SUPERVISOR 06/29/2024 4:36 PM BILLING SUPERVISOR Navneet Lizarraga MD LAB - COAGULATI ON ORDERABLES Performing Organization Address City/[facility]/ZIP Co de Phone Number [address] [address], [facility] [phone] * TROPONIN-I HIGH SENSITIVE BASELINE + 1HR (06/29/2024 4:27 PM BILLING SUPERVISOR) Pathologist [facility] Troponin I High Sensitive <3 <=14 ng/L 06/29/2024 5:11 PM BILLING SUPERVISOR [facility] Blood BLOOD SPECIMEN / Unknown Venipuncture / Unknown 06/29/2024 4:27 PM BILLING SUPERVISOR 06/29/2024 4:38 PM BILLING SUPERVISOR Navneet Lizarraga MD LAB - CHEMISTRY ORDERABLES Performing Organization Address [facility] Co de Phone Number [address] [address], [facility] [phone] * (ABNORMAL) TSH REFLEX FREE T4 (06/29/2024 4:27 PM BILLING SUPERVISOR) Pathologist [facility] TSH 6.035(H) 0.350 - 4.940 uIU/mL 06/29/2024 7:18 PM BILLING SUPERVISOR [facility] Blood BLOOD SPECIMEN / Unknown Venipuncture / Unknown 06/29/2024 4:27 PM BILLING SUPERVISOR 06/29/2024 4:38 PM BILLING SUPERVISOR Navneet Lizarraga MD LAB - CHEMISTRY ORDERABLES Performing Organization Address City/[facility]/ZIP Co de Phone Number [address] [address], [employer] [phone] * TYPE + SCREEN PANEL (06/29/2024 4:27 PM BILLING SUPERVISOR) Pathologist [facility] Antibody Screen NEG 5:23 PM BILLING SUPERVISOR [facility] BLOOD BANK LAB ABO Rh A POS 06/29/2024 5:23 PM BILLING SUPERVISOR [facility] BLOOD BANK LAB Blood Bank BLOOD SPECIMEN / Unknown Venipuncture / Unknown 06/29/2024 4:27 PM BILLING SUPERVISOR 06/29/2024 4:46 PM BILLING SUPERVISOR Navneet Lizarraga MD LAB - BLOOD BAN K ORDERABLES [facility] BLOOD B[facility] LAB [address] [place] [address], [facility] [phone] * (ABNORMAL) CBC W AUTO DIFFERENTIAL (06/29/2024 4:27 PM BILLING SUPERVISOR) WBC 11.2(H) 4.0 - 10.7 x10E9/L 06/29/2024 4:41 PM [facility] RBC Count 3.72(L) 3.90 - 5.20 x10E12/L 06/29/2024 4:41 PM [facility] Hemoglobin 11.3(L) 11.9 - 15.8 g/dL 06/29/2024 4:41 PM [facility] Hematocrit 33.9(L) 34.8 - 46.1 % 06/29/2024 4:41 PM [facility] MCV 91.1 80.0 - 98.0 fL 06/29/2024 4:41 PM [facility] MCH 30.4 26.7 - 33.6 pg 06/29/2024 4:41 PM [facility] MCHC 33.3 31.7 - 36.3 g/dL 06/29/2024 4:41 PM [facility] RDW-CV 13.2 11.3 - 14.8 % 06/29/2024 4:41 PM [facility] Platelet Count 353 150 - 420 x10E9/L 06/29/2024 4:41 PM [facility] MPV 9.3 7.8 - 11.4 fL 06/29/2024 4:41 PM [facility] Neutrophil % 81.2(H) 41.0 - 74.0 % 06/29/2024 4:41 PM [facility] Lymphocyte % 11.0(L) 17.0 - 47.0 % 06/29/2024 4:41 PM [facility] Monocyte % 3.9 3.0 - 11.0 % 06/29/2024 4:41 PM [facility] Eosinophil % 2.2 0.0 - 7.0 % 06/29/2024 4:41 PM [facility] Basophil % 0.6 0.0 - 1.6 % 06/29/2024 4:41 PM [facility] Immature Granulocytes % 1.1(H) 0.0 - 1.0 % 06/29/2024 4:41 PM [facility] Neutrophil Absolute 9.08(H) 1.60 - 7.50 x10E9/L 06/29/2024 4:41 PM [facility] Lymphocyte Absolute 1.23 1.00 - 4.40 x10E9/L 06/29/2024 4:41 PM [facility] Monocyte Absolute 0.44 0.15 - 1.00 x10E9/L 06/29/2024 4:41 PM [facility] Eosinophil Absolute 0.25 0.00 - 0.60 x10E9/L 06/29/2024 4:41 PM [facility] Basophil Absolute 0.07 0.00 - 0.13 x10E9/L 06/29/2024 4:41 PM [facility] Blood BLOOD SPECIMEN / Unknown Venipuncture / Unknown 06/29/2024 4:27 PM BILLING SUPERVISOR 06/29/2024 4:38 PM [facility] Navneet Lizarraga MD LAB - HEMATOLOG Y ORDERABLES Performing Organization Address City/[facility] Co de Phone Number [facility] [address] [place] [phone], [facility] [phone] * (ABNORMAL) COMPREHENSIVE METABOLIC PANEL (06/29/2024 4:27 PM BILLING SUPERVISOR) BUN 25 7 - 26 mg/dL 06/29/2024 5:07 PM [facility] Creatinine 0.82 0.56 - 0.96 mg/dL 06/29/2024 5:07 PM [facility] Sodium 144 136 - 145 mmol/L 06/29/2024 5:07 PM [facility] Potassium 4.3 3.5 - 4.5 mmol/L 06/29/2024 5:07 PM [facility] Chloride 105 98 - 107 mmol/L 06/29/2024 5:07 PM [facility] CO2 23 22 - 29 mmol/L 06/29/2024 5:07 PM [facility] Glucose 152(H) 70 - 99 mg/dL 06/29/2024 5:07 PM [facility] Calcium 10.8(H) 8.4 - 10.2 mg/dL 06/29/2024 5:07 PM [facility] Protein Total 8.2 6.0 - 8.3 g/dL 06/29/2024 5:07 PM [facility] Albumin 4.0 3.4 - 5.0 g/dL 06/29/2024 5:07 PM [facility] Bilirubin Total 0.4 0.2 - 1.2 mg/dL 06/29/2024 5:07 PM [facility] Alkaline Phosphatase 85 40 - 150 U/L 06/29/2024 5:07 PM [facility] ALT 19 5 - 55 U/L 06/29/2024 5:07 PM [facility] AST 30 5 - 34 U/L 06/29/2024 5:07 PM [facility] Anion Gap 16 6 - 16 06/29/2024 5:07 PM [facility] BUN/Creatinine Ratio 30(H) 7 - 23 06/29/2024 5:07 PM [facility] Osmolality Calculated 305(H) 275 - 295 mOsm/kg 06/29/2024 5:07 PM [facility] Albumin/Globulin Ratio 1.0(L) 1.1 - 2.3 06/29/2024 5:07 PM [facility] eGFR by CKD-EPI 71(L) >=90 mL/min/1.7 3 m2 06/29/2024 5:07 PM [facility] Blood BLOOD SPECIMEN / Unknown Venipuncture / Unknown 06/29/2024 4:27 PM BILLING SUPERVISOR 06/29/2024 4:38 PM [facility] aNvneet Lizarraga MD LAB - CHEMISTRY ORDERABLES [facility] [address] [place] [phone], [facility] [phone] * T4 FREE (06/29/2024 4:27 PM BILLING SUPERVISOR) T4 Free 1.2 0.7 - 1.5 ng/dL 06/29/2024 7:51 PM BILLING SUPERVISOR [facility] Blood BLOOD SPECIMEN / Unknown Venipuncture / Unknown 06/29/2024 4:27 PM BILLING SUPERVISOR 06/29/2024 4:38 PM BILLING SUPERVISOR Navneet Lizarraga MD LAB - CHEMISTRY ORDERABLES [facility] [address] [place] [address], [facility] [phone] * CT Angio Brain Neck Stroke (06/29/2024 3:52 PM BILLING SUPERVISOR) Anatomical Region Laterality Modality Head Computed Tomogra phy 06/29/2024 4:26 PM BILLING SUPERVISOR Impressions 06/29/2024 4:33 PM BILLING SUPERVISOR IMPRESSION: 1. No acute intracranial hemorrhage. 2. No large arterial occlusions or hemodynamically significant stenoses identified in the head or neck. Viz.AI was used for large vessel occlusion detection. > Interpreting Provider: Preeti Philip MD on 06/29/2024 4:33 PM Narrative 06/29/2024 4:33 PM BILLING SUPERVISOR PROCEDURE: CT ANGIO BRAIN NECK STROKE, DATE/TIME OF EXAM: 06/29/2024 3:52 PM, LOCATION [facility] INDICATION: R47.81: Slurred speech ADDITIONAL CLINICAL INFORMATION: Ordering Provider Reason For Exam: Slurred speech Technologist Note: None. Additional: None. EXAMINATION: 1. Computed tomographic (CT) angiography of the head with contrast 2. CT angiography of the neck with contrast CONTRAST: IOPAMIDOL 76 % IV SOLN:75 mL TECHNIQUE: CT angiography of the head and neck was obtained after the uneventful administration of 75 mL Isovue-370 intravenous contrast. Three dimensional postprocessing was performed by the technologist and sent to the workstation for review. Stenosis measurements are based on NASCET criteria. CT dose reduction technique was used, including Automated Exposure Control. COMPARISON: Same day CT of the head from 06/29/2024. FINDINGS: Non-angiographic findings: Please refer to the separately dictated noncontrast head CT for the none-angiographic findings. Mild tree-in-bud opacities in the left lung could be inflammatory or bronchiolitis. A calcified granuloma is noted in the left upper lobe. There are mild degenerative changes of the cervical spine. Angiographic findings: There is atherosclerotic disease of the aortic arch. The configuration of the brachiocephalic vessels is typical. There is atherosclerotic calcification of the innominate and subclavian arteries. There is atherosclerotic disease of the right carotid bifurcation and origin of the right internal carotid artery with less than 50 percent focal stenosis by NASCET criteria. The right common and internal carotid arteries otherwise appear normal. There is atherosclerotic disease of the left carotid bifurcation and origin of the left internal carotid artery with less than 50 percent focal stenosis by NASCET criteria. The left common and internal carotid arteries otherwise appear normal. There is atherosclerotic disease involving the cervical vertebral arteries without significant focal stenosis. There is atherosclerotic disease involving the distal internal carotid arteries without significant focal stenosis. The anterior and middle cerebral arteries appear normal. The distal vertebral arteries appear normal. The basilar artery and posterior cerebral arteries appear normal. No aneurysms, vascular occlusions, or hemodynamically significant intracranial stenoses are identified. Procedure Note Preeti Philip MD - 06/29/2024 PROCEDURE: CT ANGIO BRAIN NECK STROKE, DATE/TIME OF EXAM: 43:52 PM, LOCATION [facility] INDICATION: R47.81: Slurred speech ADDITIONAL CLINICAL INFORMATION: Ordering Provider Reason For Exam: Slurred speech Technologist Note: None. Additional: None. EXAMINATION: 1. Computed tomographic (CT) angiography of the head with contrast 2. CT angiography of the neck with contrast CONTRAST: IOPAMIDOL 76 % IV SOLN:75 mL TECHNIQUE: CT angiography of the head and neck was obtained after the uneventful administration of 75 mL Isovue-370 intravenous contrast.Three dimensional postprocessing was performed by the technologist and sent to the workstation for review. Stenosis measurements are based on NASCET criteria. CT dose reduction technique was used, including Automated Exposure Control. COMPARISON: Same day CT of the head from 06/29/2024. FINDINGS: Non-angiographic findings: Please refer to the separately dictated noncontrast head CT for the none-angiographic findings. Mild tree-in-bud opacities in the left lung could be inflammatory or bronchiolitis. A calcified granuloma is notedin the left upper lobe. There are mild degenerative changes of the cervical spine. Angiographic findings: There is atherosclerotic disease of the aortic arch. The configurationof the brachiocephalic vessels is typical. There is atherosclerotic calcification of the innominate and subclavian arteries. There is atherosclerotic disease of the right carotid bifurcation and origin ofthe right internal carotid artery with less than 50 percent focal stenosisby NASCET criteria. The right common and internal carotid arteriesotherwise appear normal. There is atherosclerotic disease of the left carotid bifurcation and origin of the left internal carotid artery with lessthan 50 percent focal stenosis by NASCET criteria. The left common andinternal carotid arteries otherwise appear normal. There is atheroscleroticdisease involving the cervical vertebral arteries without significant focal stenosis. There is atherosclerotic disease involving the distal internal carotid arteries without significant focal stenosis. The anterior and middle cerebral arteries appear normal. The distal vertebral arteries appear normal. The basilar artery and posterior cerebral arteries appearnormal. No aneurysms, vascular occlusions, or hemodynamically significant intracranial stenoses are identified. IMPRESSION: 1. No acute intracranial hemorrhage. 2. No large arterial occlusions or hemodynamically significant stenoses identified in the head or neck. Viz.AI was used for large vessel occlusion detection. > Interpreting Provider: Preeti Philip MD on 06/29/2024 4:33 PM Navneet Lizarraga MD CT ORDERABLES * CT BRAIN - Stroke (06/29/2024 3:51 PM BILLING SUPERVISOR) Anatomical Region Laterality Modality Head Computed Tomogra phy 06/29/2024 3:3 6 PM BILLING SUPERVISOR Impressions 06/29/2024 4:25 PM BILLING SUPERVISOR IMPRESSION: 1.No acute intracranial hemorrhage. 2.Please note that CT is insensitive to nonhemorrhagic strokes and MRI of the brain should be considered if there is clinical concern for acute cerebral infarction. > Dictated by Brenton Dickson MD (Credentialing Analyst), 06/29/2024 3:38 PM. Results were discussed with Dr. Carloz M.D. by Dr. Brenton Dickson M.D. (Credentialing Analyst) at 3:36PM on 06/29/24 with readback confirmation. These findings were discussed with Dr. Philip by Dr. Dickson prior to this dictation. IPreeti MD have personally reviewed and interpreted this examination/study. > Interpreting Provider: Preeti Philip MD on 06/29/2024 4:25 PM Narrative 06/29/2024 4:25 PM BILLING SUPERVISOR PROCEDURE: CT BRAIN STROKE, DATE/TIME OF EXAM: 06/29/2024 3:30 PM, [facility] INDICATION: Code Stroke TECHNIQUE: CT of the head was performed without contrast according to standard protocol. COMPARISON: No prior study is available for comparison at the time of this dictation. FINDINGS: The images are degraded due to beam hardening artifacts limiting evaluation of the temporal lobes. Within this limitation: No acute intracranial hemorrhage or intra- or extra-axial fluid collections are identified. There is mild cerebral volume loss with associated ex vacuo ventricular dilatation. The basal cisterns are patent. No mass effect or midline shift is seen. 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 The aguilera-white matter differentiation is normal. Periventricular white matter hypoattenuation is a nonspecific finding that may be indicative of chronic small vessel ischemic disease. There is atherosclerotic calcification of the carotid siphons. Other than bilateral cataract extractions, and minimal paranasal sinus disease, the visualized portions of the orbits, paranasal sinuses, and mastoids appear normal. No acute calvarial fracture is identified. Procedure Note Preeti Philip MD - 06/29/2024 PROCEDURE: CT BRAIN STROKE, DATE/TIME OF EXAM: 06/29/2024 3:30 PM, LOCATION [facility] INDICATION: Code Stroke TECHNIQUE: CT of the head was performed without contrast according to standard protocol. COMPARISON: No prior study is available for comparison at the time ofthis dictation. FINDINGS: The images are degraded due to beam hardening artifactslimiting evaluation of the temporal lobes. Within this limitation: No acute intracranial hemorrhage or intra- or extra-axial fluidcollections are identified. There is mild cerebral volume loss with associated exvacuo ventricular dilatation. The basal cisterns are patent. No mass effect or midline shift is seen. Chronic lacunar infarct of the left basalganglia. The aguilera-white matter differentiation is normal. Periventricular white matter hypoattenuation is a nonspecific finding that may be indicativeof chronic small vessel ischemic disease. There is atherosclerotic calcification of the carotid siphons. Other than bilateral cataract extractions, and minimal paranasal sinus disease, the visualized portions of the orbits, paranasal sinuses, and mastoids appear normal. No acute calvarial fracture is identified. IMPRESSION: 1.No acute intracranial hemorrhage. 2.Please note that CT is insensitive to nonhemorrhagic strokes and MRIof the brain should be considered if there is clinical concern for acute cerebral infarction. > Dictated by Brenton Dickson MD (Credentialing Analyst), 06/29/2024 3:38 PM. Results were discussed with Dr. Carloz M.D. by Dr. Brenton Dickson M.D. (Credentialing Analyst) at 3:36PM on 06/29/24 with readback confirmation. These findings were discussed with Dr. Philip by Dr. Dickson prior to this dictation. I, Preeti Philip MD have personally reviewed and interpretedthis examination/study. > Interpreting Provider: Preeti Philip MD on 06/29/2024 4:25 PM Navneet Lizarraga MD CT ORDERABLES * (ABNORMAL) CREATININE - POCT INTERFACED (06/29/2024 3:40 PM BILLING SUPERVISOR) [facility] Creatinine POCT 0.62 0.30 - 1.30 mg/dL 06/29/2024 3:51 PM BILLING SUPERVISOR [facility] eGFR 88(L) >=90 mL/min/1.7 3 m2 06/29/2024 3:51 PM BILLING SUPERVISOR [facility] Blood BLOOD SPECIMEN / Unknown 06/29/2024 3:40 PM BILLING SUPERVISOR 06/29/2024 3:51 PM BILLING SUPERVISOR Navneet Lizarraga MD LAB - POINT OF CARE ORDERABLES [facility] [address] [place] [address], [facility] [phone] * INR WHOLE BLOOD - POINT OF CARE (IP) STROKE (06/29/2024 3:39 PM BILLING SUPERVISOR) INR 1.0 0.9 - 1.2 06/30/2024 5:38 AM BILLING SUPERVISOR [facility] Device [id number] 06/30/2024 5:38 AM BILLING SUPERVISOR [facility] Hand Clipper ID [id number] 06/30/2024 5:38 AM BILLING SUPERVISOR [facility] Blood BLOOD SPECIMEN / Unknown 06/29/2024 3:39 PM BILLING SUPERVISOR 06/30/2024 5:38 AM BILLING SUPERVISOR Navneet Lizarraga MD LAB - POINT OF CARE ORDERABLES [facility] [address] [place] [address], [facility] [phone] from Last 3 Months Advance Directives * Full Code (Latest Code Status on File) Date Activated Date Inactivated Comments 06/29/2024 6:25 PM 07/01/2024 5:22 PM Care Teams Senior Analyst Programmer Relationship Specialty Start Date End Date Kole Podn MD [address] [facility] [address] [place] [address] PCP - General 01/24/09
--- OUTSIDE RECORDS SUMMARY | 2024-09-09 23:28 | XMS_ITS | Continuity of Care Document ---
Author Organization [facility] Address [address] [place] [address] Phone Care Team Providers Care Hot Top Liner Name Role Phone Arredondo OD, Sukumar Unavailable Unavailable Advance Directives Directive Yes / No Effective Date File Name No Information Encounters Encounter Description Practice Location Reason(s) For Visit Diagnoses Date Provider Providers Copied on Encounter [facility], [address], [place], [place], [id number], [place] tel:[phone] [facility] No Information 4-200 1 Arredondo OD Sukumar. [address] [facility] [address] , [address], [place], [address], [place]. tel:[phone] Family History Family Member Type Diagnosis Age At Onset No Information Payers Payer name Insurance type Covered alliance party ID Authoriza tion(s) No Information Social History Type Description Quantity Date Captured Comments Sex Female Smoking Status No Information Chief Complaint And Reason For Visit No Information Reason For Referral Reason For Referral No Information History Of Present Illness Encounter Date Complaint History Of Prese nt Illness No Information Functional Status Date Functional Assessmen t No Information Instructions Date Instruction Additional Infor mation No Information Assessments Type Assessment Date No Information Patient Care Teams Name Effective Dates (start - stop) Status Members No Information
--- OUTSIDE RECORDS SUMMARY | 2024-09-09 23:28 | XMS_ITS | Patient Health Summary ---
Author Organization [facility] [email or web address] Address [address] [place] [address] Care Team Providers Care All Terrain Vehicle Technician Name Role Phone Kole Pond MD Primary Care Provider Note from [facility],non-owned Affiliates and Associated Physician Practices is amultiple site organization consisting of ambulatory clinics and hospital sitesin [place], [place], [place] and [place]. This disclosure is being madepursuant to the Care Everywhere program and may not contain all information available regarding this patient. Last updated [email or web address] Medications * Be aware that medications may not be up to date on this document. Alwaysverify current medications with the patient. * atorvastatin (Lipitor) 20 MG tablet(Started 10/14/2023) Take 1 (one) tablet by mouth once daily * memantine (Namenda) 5 MG tablet(Started 05/16/2024) Take 1 (one) tablet by mouth 2 times daily * mirtazapine (Remeron) 15 MG tablet(Started 10/10/2023) Take 1 (one) tablet by mouth at bedtime * rivastigmine (Exelon) 13.3 MG/24HR patch(Started 05/16/2024) Apply 1 (one) patch to skin once daily Active Problems Problem Noted Date Diagnosed Date Slurred speech 06/29/2024 Altered mental status, unspe cified altered mental status type 06/29/2024 Left-sided weakness 06/29/2024 Social History Tobacco Use Types Packs/Day Years Used Date Smoking Tobacco: Never Assessed Sex and Gender Information Value Date Recorded Sex Assigned at Not on file Gender Identity Not on file Sexual Orientation Not on file Last Filed Vital Signs Vital Sign Reading Time Taken Comments Blood Pressure 128/74 07/01/2024 8:51 AM RECREATION COUNSELOR Pulse 68 07/01/2024 8:51 AM RECREATION COUNSELOR Temperature 36.4 C (97.5 F) 07/01/2024 8:51 AM RECREATION COUNSELOR Respiratory Rate 20 07/01/2024 8:51 AM RECREATION COUNSELOR Oxygen Saturation 99% 07/01/2024 8:51 AM RECREATION COUNSELOR Inhaled Oxygen Concentration - - Weight 62.1 kg (137 lb) 07/01/2024 8:51 AM RECREATION COUNSELOR Height 165 cm (5' 4.96 ) 07/01/2024 8:51 AM RECREATION COUNSELOR Body Mass Index 22.83 07/01/2024 8:51 AM RECREATION COUNSELOR Procedures * CARDIAC EKG ORDER(Performed 07/02/2024) * ECHO COMPLETE(Performed 07/01/2024) Performed for Slurred speech * FERRITIN(Performed 06/30/2024) Performed for Left-sided weakness * IRON + TRANSFERRIN PANEL(Performed 06/30/2024) Performed for Left-sided weakness * CALCIUM IONIZED WHOLE BLOOD(Performed 06/30/2024) Performed for Left-sided weakness * RETIC COUNT(Performed 06/30/2024) Performed for Left-sided weakness * RENAL FUNCTION PANEL(Performed 06/30/2024) Performed for Left-sided weakness * CULTURE BLOOD(Performed 06/29/2024) Performed for Left-sided weakness * CULTURE BLOOD(Performed 06/29/2024) Performed for Left-sided weakness * MRI BRAIN WO CONTRAST(Performed 06/29/2024) Performed for Slurred speech * BLOOD TYPE VERIFICATION(Performed 06/29/2024) * SARS-COV-2 (COVID-19) FLU A/B RSV PCR RAPID(Performed 06/29/2024) Performed for Dehydration * XR ABDOMEN KUB PORTABLE(Performed 06/29/2024) Performed for Dehydration * XR CHEST 1VW PORTABLE(Performed 06/29/2024) Performed for Dehydration * TROPONIN-I HIGH SENSITIVE REFLEX 1HOUR(Performed 06/29/2024) * URINALYSIS REFLEX MICROSCOPIC REFLEX CULTURE(Performed 06/29/2024) * TYPE + SCREEN PANEL(Performed 06/29/2024) * T4 FREE(Performed 06/29/2024) * TSH REFLEX FREE T4(Performed 06/29/2024) * TROPONIN-I HIGH SENSITIVE BASELINE + 1HR(Performed 06/29/2024) * PT-INR [facility](Performed 06/29/2024) * COMPREHENSIVE METABOLIC PANEL(Performed 06/29/2024) * CBC W AUTO DIFFERENTIAL(Performed 06/29/2024) * CT ANGIO BRAIN NECK STROKE(Performed 06/29/2024) Performed for Slurred speech * CT BRAIN STROKE(Performed 06/29/2024) Performed for Slurred speech * CREATININE - POCT INTERFACED(Performed 06/29/2024) * INR WHOLE BLOOD - POINT OF CARE (IP) STROKE(Performed 06/29/2024) Results * CARDIAC EKG ORDER (07/02/2024 1:19 PM RECREATION COUNSELOR) Narrative 07/02/2024 1:19 PM RECREATION COUNSELOR Ordered by an unspecified provider. Scanned Document CARDIAC SERVICES ORD ERABLES * ECHO COMPLETE (07/01/2024 11:07 AM RECREATION COUNSELOR) IVSd 2D 0.816 cm SSM CV FUJ I PACS LVIDd 4.34 cm SSM CV FUJ I PACS LVIDs 2.611 cm SSM CV FUJ I PACS LVOT diam 1.988 cm SSM CV FUJ I PACS LVPWd 0.899 cm SSM CV FUJ I PACS LV biplane EF 76.697 % SSM CV FUJI PACS LV A2C EF 67.732 % SSM CV FUJ I PACS LV A4C EF 83.172 % SSM CV FUJ I PACS LV EDV A2C 46.213 ml SSM CV FU JI PACS LV EDV A4C 40.746 ml SSM CV FU JI PACS LV ESV A2C 14.912 ml SSM CV FU JI PACS LV ESV A4C 6.857 ml SSM CV FU JI PACS LVOT pk eliecer 125.727 cm/s SSM CV F UJI PACS LVOT VTI 25.596 cm SSM CV FUJ I PACS RV-pelayo basal diam 3.178 cm SSM CV FUJI PACS RVIDd 3.321 cm SSM CV FUJ I PACS RVOT diam Doppler 1.976 cm SSM CV FUJI PACS RVOT pk eliecer 93.569 cm/s SSM CV F UJI PACS RVOT VTI 16.746 cm SSM CV FUJ I PACS LA size 4.134 cm SSM CV FUJ I PACS LA vol BP 32.458 ml SSM CV FUJ I PACS RA area 11.611 cm SSM CV FUJI PACS AV mn grad 7.873 mmHg SSM CV FU JI PACS AV pk eliecer 181.981 cm/s SSM CV FUJ I PACS AV VTI 32.725 cm SSM CV FUJ I PACS MV A pk eliecer 92.185 cm/s SSM CV F UJI PACS MV E pk eliecer 80.185 cm/s SSM CV F UJI PACS MV E' lateral eliecer 12.932 cm/s SSM CV FUJI PACS MV mn grad 1.971 mmHg SSM CV FU JI PACS MV VTI 22.617 cm SSM CV FUJ I PACS PV pk eliecer 126.327 cm/s SSM CV FUJ I PACS PV VTI 20.496 cm SSM [...] Laterality Modality Ultrasound 07/01/2024 10:1 5 AM RECREATION COUNSELOR Narrative 07/01/2024 12:21 PM RECREATION COUNSELOR Summary * The left ventricle is normal [...] 10:15 AM Patient Status: OPO Study Site: [facility] Primary Location: [facility] Info Technical Quality: Good Exam Type: ECHO COMPLETE Indications R47.81 - Slurred speech Procedure(s) * A complete 2D, color Doppler, spectral Doppler, and M-Mode transthoracic echocardiogram was performed. Staff Referring Physician: Devendra Roberts Ordering Provider: Devenrda Roberts Attending Physician: Devendra Roberts Company Laborer: Russell Manzo Left Ventricle The left ventricle [...] 10:15 AM Patient Status: OPO Study Site: [facility] Primary Location: [facility] EStudy Info Technical Quality: Good Exam Type: ECHO COMPLETE Indications R47.81 - Slurred speech Procedure(s) * A complete 2D, color Doppler, spectral Doppler, and M-Modetransthoracic echocardiogram was performed. Staff Referring Physician: Devendra Roberts Ordering Provider: Devendra Roberts Attending Physician: Devendra Roberts Company Laborer: Russell Manzo Left Ventricle The left ventricle [...] IRON + TRANSFERRIN PANEL (06/30/2024 5:48 AM [facility]) Iron 70 40 - 150 ug/dL 06/30/2024 6:53 AM [facility] Transferrin 173(L) 174 - 382 mg/dL 06/30/2024 6:53 AM [facility] Transferrin Saturation % 32 16 - 50 % 06/30/2024 6:53 AM [facility] TIBC Calculated 216(L) 240 - 450 ug/dL 06/30/2024 6:53 AM [facility] Blood BLOOD SPECIMEN / Unknown Lab Venipuncture / Unknown 06/30/2024 5:48 AM [facility] 06/30/2024 5:52 AM RECREATION COUNSELOR Devendra Roberts MD LAB - CHEMISTRY [facility] [address] [address], [place] [phone] * (ABNORMAL) FERRITIN (06/30/2024 5:48 AM RECREATION COUNSELOR) Ferritin 350(H) 13 - 204 ng/mL 06/30/2024 7:06 AM RECREATION COUNSELOR [facility] Blood BLOOD SPECIMEN / Unknown Lab Venipuncture / Unknown 06/30/2024 5:48 AM RECREATION COUNSELOR 06/30/2024 5:52 AM RECREATION COUNSELOR Devendra Roberts MD LAB - CHEMISTRY [facility]IA[facility] COOPER Performing Organization Address [facility]/ZIP Co de Phone Number [address] [address], [place] [phone] * (ABNORMAL) CALCIUM IONIZED WHOLE BLOOD (06/30/2024 5:47 AM RECREATION COUNSELOR) [facility] Calcium Ionized 1.35 mmol/L 06/30/2024 5:55 AM [facility] pH 7.47(H) 7.35 - 7.45 pH 06/30/2024 5:55 AM [facility] Ionized Calcium pH Adjusted 1.39(H) 1.19 - 1.34 mmol/L 06/30/2024 5:55 AM [facility] Blood BLOOD SPECIMEN / Unknown Lab Venipuncture / Unknown 06/30/2024 5:47 AM RECREATION COUNSELOR 06/30/2024 5:52 AM RECREATION COUNSELOR Devendra Roberts MD LAB - CHEMISTRY [facility]IANA CO[facility] [address] [address], [place] [phone] * RETIC COUNT (06/30/2024 5:47 AM RECREATION COUNSELOR) Reticulocyte Percent 2.37 0.50 - 2.40 % 06/30/2024 6:32 AM [facility] Reticulocyte Absolute 0.0751 0.0200 - 0.1100 x10E6/uL 06/30/2024 6:32 AM [facility] Ret-HE 34.6 29.0 - 37.9 pg 06/30/2024 6:32 AM [facility] Immature Reticulocyte Fraction 12.5 1.8 - 15.2 % 06/30/2024 6:32 AM [facility] Blood BLOOD SPECIMEN / Unknown Lab Venipuncture / Unknown 06/30/2024 5:47 AM RECREATION COUNSELOR 06/30/2024 6:20 AM [facility] Devendra Roberts MD LAB - HEMATOLOGY ORD ERABLES [facility] [address] [place] [address], [facility] [phone] * (ABNORMAL) RENAL FUNCTION PANEL (06/30/2024 5:47 AM [facility]) BUN 19 7 - 26 mg/dL 06/30/2024 6:48 AM [facility] Creatinine 0.80 0.56 - 0.96 mg/dL 06/30/2024 6:48 AM [facility] Sodium 143 136 - 145 mmol/L 06/30/2024 6:48 AM [facility] Potassium 3.9 3.5 - 4.5 mmol/L 06/30/2024 6:48 AM [facility] Chloride 110(H) 98 - 107 mmol/L 06/30/2024 6:48 AM [facility] CO2 24 22 - 29 mmol/L 06/30/2024 6:48 AM [facility] Glucose 94 70 - 99 mg/dL 06/30/2024 6:48 AM [facility] Albumin 2.9(L) 3.4 - 5.0 g/dL 06/30/2024 6:48 AM [facility] Calcium 9.8 8.4 - 10.2 mg/dL 06/30/2024 6:48 AM [facility] Phosphorus 4.2 2.9 - 5.1 mg/dL 06/30/2024 6:48 AM [facility] Anion Gap 9 6 - 16 06/30/2024 6:48 AM [facility] BUN/Creatinine Ratio 24(H) 7 - 23 06/30/2024 6:48 AM [facility] Osmolality Calculated 298(H) 275 - 295 mOsm/kg 06/30/2024 6:48 AM [facility] eGFR by CKD-EPI 73(L) >=90 mL/min/1.7 3 m2 06/30/2024 6:48 AM [facility] Blood BLOOD SPECIMEN / Unknown Lab Venipuncture / Unknown 06/30/2024 5:47 AM RECREATION COUNSELOR 06/30/2024 6:21 AM RECREATION COUNSELOR Devendra Roberts MD LAB - CHEMISTRY DIANA COOPER [facility] [address] [place] [address], [facility] [phone] * CULTURE BLOOD (06/29/2024 9:37 PM RECREATION COUNSELOR) Only the most recent of2 resultswithin the time period is included. Culture No growth day 5 GERTRUDE 07/05/2024 1:30 AM RECREATION COUNSELOR [facility] MICROBIOLOGY Blood PERIPHERAL BLOOD / Unknown Lab Venipuncture / Unknown 06/29/2024 9:37 PM RECREATION COUNSELOR 06/29/2024 9:41 PM RECREATION COUNSELOR Devendra Roberts MD LAB - MICROBIOLOGY O RDERABLES [facility] MICROBIOLOGY [address] [place] [address], [facility] [phone] * MRI Brain Wo Contrast (06/29/2024 8:25 PM RECREATION COUNSELOR) Anatomical Region Laterality Modality Head Magnetic Resonan ce 07/02/2024 10:1 1 AM RECREATION COUNSELOR Impressions 07/02/2024 10:31 AM RECREATION COUNSELOR IMPRESSION: 1. No evidence of restricted diffusion to suggest an acute infarction. > Interpreting Provider: Preeti Philip MD on 07/02/2024 10:31 AM Narrative 07/02/2024 10:31 AM RECREATION COUNSELOR PROCEDURE: MRI BRAIN WO CONTRAST, DATE/TIME OF EXAM: 06/29/2024 8:25 PM, LOCATION [facility] INDICATION: R47.81: Slurred speech ADDITIONAL CLINICAL INFORMATION: [...] CONTRAST, DATE/TIME OF EXAM: 06/29/2024 8:25PM, LOCATION [facility] INDICATION: R47.81: Slurred speech ADDITIONAL CLINICAL INFORMATION: [...] A/B RSV PCR RAPID (06/29/2024 7:35 PM RECREATION COUNSELOR) COVID-19 PCR Not detected Not detected 06/29/20 8:14 PM RECREATION COUNSELOR [facility] Influenza A PCR Not detected Not detected 06/29/2024 8:14 PM RECREATION COUNSELOR [facility] Influenza B PCR Not detected Not detected 06/29/2024 8:14 PM RECREATION COUNSELOR [facility] RSV PCR Not detected Not detected 06/29/2024 8:14 PM RECREATION COUNSELOR [facility] Microbiology SPECIMEN FROM NASOPHARYNGEAL STRUCTURE / Unknown Collection / Unknown 06/29/2024 7:35 PM RECREATION COUNSELOR 06/29/2024 7:35 PM RECREATION COUNSELOR Narrative [facility] - 06/29/2024 8:14 PM RECREATION COUNSELOR This nucleic acid amplification assay has been [...] Roberts MD LAB - MICROBIOLOGY O RDERABLES Performing Organization Address City/[facility]/ZIP Co de Phone Number [address] [address], [facility] [phone] * BLOOD TYPE VERIFICATION (06/29/2024 7:35 PM RECREATION COUNSELOR) ABO Rh A POS 06/29/2024 8:2 1 PM RECREATION COUNSELOR [facility]OD [facility] LAB Blood Bank BLOOD SPECIMEN / Unknown Venipuncture / Unknown 06/29/2024 7:35 PM RECREATION COUNSELOR 06/29/2024 7:50 PM RECREATION COUNSELOR Navneet Lizarraga MD LAB - BLOOD BAN K ORDERABLES Performing Organization Address City/[facility]/ZIP Co de Phone Number [facility] [address] [place] [address], [facility] [phone] * XR Abdomen Kub Portable (06/29/2024 7:30 PM RECREATION COUNSELOR) Anatomical Region Laterality Modality Abdomen Digital Radiogra phy 06/29/2024 7:57 PM RECREATION COUNSELOR Impressions 06/30/2024 8:18 AM RECREATION COUNSELOR IMPRESSION: Nonobstructive bowel gas pattern. Right renal pelvocaliectasis. Report dictated by Hortensia Voss MD (hvac technician residential). IIsiah MD have personally reviewed and interpreted this examination/study. > Interpreting Provider: Isiah Arrington MD on 06/30/2024 8:18 AM Narrative 06/30/2024 8:18 AM RECREATION COUNSELOR PROCEDURE: XR ABDOMEN KUB PORTABLE, DATE/TIME OF EXAM: 06/29/2024 7:47 PM, LOCATION [facility] INDICATION: E86.0: Dehydration ADDITIONAL CLINICAL INFORMATION: Ordering [...] DATE/TIME OF EXAM: 06/29/2024 7:47 PM, LOCATION [facility] INDICATION: E86.0: Dehydration ADDITIONAL CLINICAL INFORMATION: Ordering [...] pelvocaliectasis. Report dictated by Hortensia Voss MD (hvac technician residential). I, Isiah Arrington MD have personally reviewed and interpreted this examination/study. > Interpreting Provider: Isiah Arrington MD on 06/30/2024 8:18 AM Devendra Roberts MD DIAGNOSTIC IMAGING O RDERABLES * XR Chest 1Vw Portable (06/29/2024 7:19 PM RECREATION COUNSELOR) Anatomical Region Laterality Modality Chest Digital Radiogra phy 06/29/2024 7:59 PM RECREATION COUNSELOR Narrative 06/30/2024 8:16 AM RECREATION COUNSELOR PROCEDURE: XR CHEST 1VW PORTABLE, DATE/TIME OF EXAM: 06/29/2024 7:46 PM, LOCATION [facility] INDICATION: E86.0: Dehydration ADDITIONAL CLINICAL INFORMATION: Ordering Provider Reason For Exam: cough COMPARISON: None. TECHNIQUE: Frontal radiographs of the chest. FINDINGS/IMPRESSION: There is no focal consolidation, pleural effusion, or pneumothorax. The mediastinal and cardiac contours are normal. No acute osseous abnormality is seen. Report dictated by Hortensia Voss M.D. (hvac technician residential). Isiah Barone MD have personally reviewed and interpreted this examination/study. > Interpreting Provider: Isiah Arrington MD on 06/30/2024 8:16 AM Procedure Note Isiah Arrington MD - 06/30/2024 PROCEDURE: XR CHEST 1VW PORTABLE, DATE/TIME OF EXAM: 06/29/2024 7:46PM, LOCATION [facility] INDICATION: E86.0: Dehydration ADDITIONAL CLINICAL INFORMATION: Ordering Provider Reason For Exam: cough COMPARISON: None. TECHNIQUE: Frontal radiographs of the chest. FINDINGS/IMPRESSION: There is no focal consolidation, pleural effusion, or pneumothorax. The mediastinal and cardiac contours are normal. No acute osseousabnormality is seen. Report dictated by Hortensia Voss M.D. (hvac technician residential). Isiah Barone MD have personally reviewed and interpreted this examination/study. > Interpreting Provider: Isiah Arrington MD on 06/30/2024 8:16 AM Devendra Roberts MD DIAGNOSTIC IMAGING O RDERABLES * TROPONIN-I HIGH SENSITIVE REFLEX 1HOUR (06/29/2024 6:12 PM RECREATION COUNSELOR) Troponin I High Sensitive 8 <=14 ng/L 06/29/2024 7:16 PM [facility] Delta Troponin I HS 06/29/2024 7:16 PM [facility] Comment:Delta value intentio deloris not calculated. Baseline to 1 hour specimen collection interval exceeded. Blood BLOOD SPECIMEN / Unknown Venipuncture / Unknown 06/29/2024 6:12 PM RECREATION COUNSELOR 06/29/2024 6:41 PM RECREATION COUNSELOR Navneet Lizarraga MD LAB - CHEMISTRY ORDERABLES [facility] [address] [place] [address], [facility] [phone] * (ABNORMAL) URINALYSIS REFLEX MICROSCOPIC REFLEX CULTURE (06/29/2024 5:11 PM RECREATION COUNSELOR) Color UA Yellow Straw, Yellow 06/29/2024 5:47 PM [facility] Clarity UA Slt Cloudy(A) Clear 06/29/2024 5:47 PM [facility] Specific Newman UA 1.031(H) 1.005 - 1.030 06/29/2024 5:47 PM [facility] pH UA 8.0 5.0 - 8.0 pH 06/29/2024 5:47 PM [facility] Protein UA Negative Negative 06/29/2024 5:47 PM [facility] Glucose UA Negative Negative 06/29/2024 5:47 PM [facility] Ketone UA Trace(A) Negative 06/29/2024 5:47 PM [facility] Bilirubin UA Negative Negative 06/29/2024 5:47 PM [facility] Blood UA Negative Negative 06/29/2024 5:47 PM [facility] Nitrite UA Negative Negative 06/29/2024 5:47 PM [facility] Leukocyte Esterase Negative Negative 06/29/2024 5:47 PM [facility] Urobilinogen UA Negative Negative mg/dL 06/29/2024 5:47 PM [facility] Comment UA Microscopic not indicated. 06/29/2024 5:47 PM [facility] Urine URINE SPECIMEN OBTAINED BY CLEAN CATCH PROCEDURE / Unknown Collection / Unknown 06/29/2024 5:11 PM RECREATION COUNSELOR 06/29/2024 5:16 PM RECREATION COUNSELOR Narrative [facility] - 06/29/2024 5:47 PM RECREATION COUNSELOR Navneet Lizarraga MD LAB - URINALYSI S ORDERABLES [facility] [address] [place] [address], [facility] [phone] * PT-INR [facility] (06/29/2024 4:27 PM RECREATION COUNSELOR) [facility] PT 12.9 12.1 - 14.8 Seconds 06/29/2024 5:01 PM [facility] INR 1.0 See Comment 06/29/2024 5:01 PM [facility] Comment:The suggested therap eutic range for standard coumadin (warfarin) therapy is an INR of 2.0-3.0. For high-risk patients (Mechanical Mitral Valve Prosthesis, etc.), the suggested prophylactic therapeutic range is an INR of 2.5-3.5. Blood BLOOD SPECIMEN / Unknown Venipuncture / Unknown 06/29/2024 4:27 PM RECREATION COUNSELOR 06/29/2024 4:36 PM RECREATION COUNSELOR Navneet Lizarraga MD LAB - COAGULATI ON ORDERABLES Performing Organization Address [facility]/ZIP Co de Phone Number [address] [address], [facility] [phone] * TROPONIN-I HIGH SENSITIVE BASELINE + 1HR (06/29/2024 4:27 PM RECREATION COUNSELOR) [facility] Troponin I High Sensitive <3 <=14 ng/L 06/29/2024 5:11 PM RECREATION COUNSELOR [facility] Blood BLOOD SPECIMEN / Unknown Venipuncture / Unknown 06/29/2024 4:27 PM RECREATION COUNSELOR 06/29/2024 4:38 PM RECREATION COUNSELOR Navneet Lizarraga MD LAB - CHEMISTRY ORDERABLES Performing Organization Address [facility]/ZIP Co de Phone Number [address] [address], [facility] [phone] * (ABNORMAL) TSH REFLEX FREE T4 (06/29/2024 4:27 PM RECREATION COUNSELOR) [facility] TSH 6.035(H) 0.350 - 4.940 uIU/mL 06/29/2024 7:18 PM RECREATION COUNSELOR [facility] Blood BLOOD SPECIMEN / Unknown Venipuncture / Unknown 06/29/2024 4:27 PM RECREATION COUNSELOR 06/29/2024 4:38 PM RECREATION COUNSELOR Navneet Lizarraga MD LAB - CHEMISTRY ORDERABLES Performing Organization Address City/[facility]/ZIP Co de Phone Number [facility] [address] [place] [address], [facility] [phone] * TYPE + SCREEN PANEL (06/29/2024 4:27 PM RECREATION COUNSELOR) [facility] Antibody Screen NEG 5:23 PM [facility] ABO Rh A POS 06/29/2024 5:23 PM [facility] Blood Bank BLOOD SPECIMEN / Unknown Venipuncture / Unknown 06/29/2024 4:27 PM RECREATION COUNSELOR 06/29/2024 4:46 PM RECREATION COUNSELOR Navneet Lizarraga MD LAB - BLOOD BAN K ORDERABLES Performing Organization Address City/[facility]/ZIP Co de Phone Number [facility] [address] [place] [address], [facility] [phone] * (ABNORMAL) CBC W AUTO DIFFERENTIAL (06/29/2024 4:27 PM RECREATION COUNSELOR) [facility] WBC 11.2(H) 4.0 - 10.7 x10E9/L 06/29/2024 4:41 PM [facility] RBC Count 3.72(L) 3.90 - 5.20 x10E12/L 06/29/2024 4:41 PM [facility] Hemoglobin 11.3(L) 11.9 - 15.8 g/dL 06/29/2024 4:41 PM [facility] Hematocrit 33.9(L) 34.8 - 46.1 % 06/29/2024 4:41 PM [facility] MCV 91.1 80.0 - 98.0 fL 06/29/2024 4:41 PM [facility] MCH 30.4 26.7 - 33.6 pg 06/29/2024 4:41 PM [facility] MCHC 33.3 31.7 - 36.3 g/dL 06/29/2024 4:41 PM [facility] RDW-CV 13.2 11.3 - 14.8 % 06/29/2024 4:41 PM [facility] Platelet Count 353 150 - 420 x10E9/L 06/29/2024 4:41 PM [facility] MPV 9.3 7.8 - 11.4 fL 06/29/2024 4:41 PM [facility] Neutrophil % 81.2(H) 41.0 - 74.0 % 06/29/2024 4:41 PM [facility] Lymphocyte % 11.0(L) 17.0 - 47.0 % 06/29/2024 4:41 PM [facility] Monocyte % 3.9 3.0 - 11.0 % 06/29/2024 4:41 PM [facility] Eosinophil % 2.2 0.0 - 7.0 % 06/29/2024 4:41 PM [facility] Basophil % 0.6 0.0 - 1.6 % 06/29/2024 4:41 PM [facility] Immature Granulocytes % 1.1(H) 0.0 - 1.0 % 06/29/2024 4:41 PM [facility] Neutrophil Absolute 9.08(H) 1.60 - 7.50 x10E9/L 06/29/2024 4:41 PM [facility] Lymphocyte Absolute 1.23 1.00 - 4.40 x10E9/L 06/29/2024 4:41 PM [facility] Monocyte Absolute 0.44 0.15 - 1.00 x10E9/L 06/29/2024 4:41 PM [facility] Eosinophil Absolute 0.25 0.00 - 0.60 x10E9/L 06/29/2024 4:41 PM [facility] Basophil Absolute 0.07 0.00 - 0.13 x10E9/L 06/29/2024 4:41 PM [facility] Blood BLOOD SPECIMEN / Unknown Venipuncture / Unknown 06/29/2024 4:27 PM RECREATION COUNSELOR 06/29/2024 4:38 PM RECREATION COUNSELOR Navneet Lizarraga MD LAB - HEMATOLOG Y ORDERABLES [facility] [address] [place] [address], [facility] [phone] * (ABNORMAL) COMPREHENSIVE METABOLIC PANEL (06/29/2024 4:27 PM RECREATION COUNSELOR) BUN 25 7 - 26 mg/dL 06/29/2024 5:07 PM [facility] Creatinine 0.82 0.56 - 0.96 mg/dL 06/29/2024 5:07 PM [facility] Sodium 144 136 - 145 mmol/L 06/29/2024 5:07 PM [facility] Potassium 4.3 3.5 - 4.5 mmol/L 06/29/2024 5:07 PM [facility] Chloride 105 98 - 107 mmol/L 06/29/2024 5:07 PM [facility] CO2 23 22 - 29 mmol/L 06/29/2024 5:07 PM [facility] Glucose 152(H) 70 - 99 mg/dL 06/29/2024 5:07 PM [facility] Calcium 10.8(H) 8.4 - 10.2 mg/dL 06/29/2024 5:07 PM [facility] Protein Total 8.2 6.0 - 8.3 g/dL 06/29/2024 5:07 PM [facility] Albumin 4.0 3.4 - 5.0 g/dL 06/29/2024 5:07 PM [facility] Bilirubin Total 0.4 0.2 - 1.2 mg/dL 06/29/2024 5:07 PM [facility] Alkaline Phosphatase 85 40 - 150 U/L 06/29/2024 5:07 PM [facility] ALT 19 5 - 55 U/L 06/29/2024 5:07 PM [facility] AST 30 5 - 34 U/L 06/29/2024 5:07 PM [facility] Anion Gap 16 6 - 16 06/29/2024 5:07 PM [facility] BUN/Creatinine Ratio 30(H) 7 - 23 06/29/2024 5:07 PM [facility] Osmolality Calculated 305(H) 275 - 295 mOsm/kg 06/29/2024 5:07 PM [facility] Albumin/Globulin Ratio 1.0(L) 1.1 - 2.3 06/29/2024 5:07 PM [facility] eGFR by CKD-EPI 71(L) >=90 mL/min/1.7 3 m2 06/29/2024 5:07 PM [facility] Blood BLOOD SPECIMEN / Unknown Venipuncture / Unknown 06/29/2024 4:27 PM RECREATION COUNSELOR 06/29/2024 4:38 PM RECREATION COUNSELOR Navneet Lizarraga MD LAB - CHEMISTRY ORDERABLES Performing Organization Address City/[facility]/ZIP Co de Phone Number [address] [address], [facility] [phone] * T4 FREE (06/29/2024 4:27 PM RECREATION COUNSELOR) T4 Free 1.2 0.7 - 1.5 ng/dL 06/29/2024 7:51 PM RECREATION COUNSELOR [facility] Blood BLOOD SPECIMEN / Unknown Venipuncture / Unknown 06/29/2024 4:27 PM RECREATION COUNSELOR 06/29/2024 4:38 PM RECREATION COUNSELOR Navneet Lizarraga MD LAB - CHEMISTRY ORDERABLES [address] [address], [facility] [phone] * CT Angio Brain Neck Stroke (06/29/2024 3:52 PM RECREATION COUNSELOR) Anatomical Region Laterality Modality Head Computed Tomogra phy 06/29/2024 4:26 PM RECREATION COUNSELOR Impressions 06/29/2024 4:33 PM RECREATION COUNSELOR IMPRESSION: 1. No acute intracranial hemorrhage. 2. No large arterial occlusions or hemodynamically significant stenoses identified in the head or neck. Viz.AI was used for large vessel occlusion detection. > Interpreting Provider: Preeti Philip MD on 06/29/2024 4:33 PM Narrative 06/29/2024 4:33 PM RECREATION COUNSELOR PROCEDURE: CT ANGIO BRAIN NECK STROKE, DATE/TIME OF EXAM: 06/29/2024 3:52 PM, LOCATION [facility] INDICATION: R47.81: Slurred speech ADDITIONAL CLINICAL INFORMATION: [...] STROKE, DATE/TIME OF EXAM: 43:52 PM, LOCATION [facility] INDICATION: R47.81: Slurred speech ADDITIONAL CLINICAL INFORMATION: [...] CT BRAIN - Stroke (06/29/2024 3:51 PM RECREATION COUNSELOR) Anatomical Region Laterality Modality Head Computed Tomogra phy 06/29/2024 3:36 PM RECREATION COUNSELOR Impressions 06/29/2024 4:25 PM RECREATION COUNSELOR IMPRESSION: 1.No acute intracranial hemorrhage. 2.Please note that CT is insensitive to nonhemorrhagic strokes and MRI of the brain should be considered if there is clinical concern for acute cerebral infarction. > Dictated by Brenton Dickson MD (Supervisor Of Communications), 06/29/2024 3:38 PM. Results were discussed with Dr. Carloz M.D. by Dr. Brenton Dickson M.D. (Supervisor Of Communications) at 3:36PM on 06/29/24 with readback confirmation. These findings were discussed with Dr. Philip by Dr. Dickson prior to this dictation. I, Preeti Philip MD have personally reviewed and interpreted this examination/study. > Interpreting Provider: Preeti Philip MD on 06/29/2024 4:25 PM Narrative 06/29/2024 4:25 PM RECREATION COUNSELOR PROCEDURE: CT BRAIN STROKE, DATE/TIME OF EXAM: 06/29/2024 3:30 PM, LOCATION [facility] INDICATION: Code Stroke TECHNIQUE: CT of the [...] DATE/TIME OF EXAM: 06/29/2024 3:30 PM, LOCATION [facility] INDICATION: Code Stroke TECHNIQUE: CT of the [...] infarction. > Dictated by Brenton Dickson MD (Supervisor Of Communications), 06/29/2024 3:38 PM. Results were discussed with Dr. Carloz M.D. by Dr. Brenton Dickson M.D. (Supervisor Of Communications) at 3:36PM on 06/29/24 with readback confirmation. These findings were discussed with Dr. Philip by Dr. Dickson prior to this dictation. I, Preeti Philip MD have personally reviewed and interpretedthis examination/study. > Interpreting Provider: Preeti Philip MD on 06/29/2024 4:25 PM Navneet Lizarraga MD CT ORDERABLES * (ABNORMAL) CREATININE - POCT INTERFACED (06/29/2024 3:40 PM RECREATION COUNSELOR) Creatinine POCT 0.62 0.30 - 1.30 mg/dL 06/29/2024 3:51 PM RECREATION COUNSELOR [facility] eGFR 88(L) >=90 mL/min/1.7 3 m2 06/29/2024 3:51 PM [facility] Blood BLOOD SPECIMEN / Unknown 06/29/2024 3:40 PM RECREATION COUNSELOR 06/29/2024 3:51 PM RECREATION COUNSELOR Navneet Lizarraga MD LAB - POINT OF CARE ORDERABLES [facility] [address] [place] [address], [facility] [phone] * INR WHOLE BLOOD - POINT OF CARE (IP) STROKE (06/29/2024 3:39 PM RECREATION COUNSELOR) INR 1.0 0.9 - 1.2 06/30/2024 5:38 AM [facility] Device [id number] 06/30/2024 5:38 AM [facility] [place] ID [id number] 06/30/2024 5:38 AM [facility] Blood BLOOD SPECIMEN / Unknown 06/29/2024 3:39 PM RECREATION COUNSELOR 06/30/2024 5:38 AM RECREATION COUNSELOR Navneet Lizarraga MD LAB - POINT OF CARE ORDERABLES [facility] [address] [place] [id number], [facility] [phone] Care Teams All Terrain Vehicle Technician Relationship Specialty Start Date End Date Kole Pond MD [address] [place] [address] PCP - General 01/24/09
--- OUTSIDE RECORDS SUMMARY | 2024-09-09 23:28 | XMS_ITS | Referral Summary ---
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 This disclosure is being madepursuant to the Care Everywhere program and may not contain all information available regarding this patient. Last updated 18.[facility] Encounters Date Type Department Care Team Description 06/29/2024 3:29 PM CHECK INSPECTOR - 07/01/2024 4:22 PM [facility] Hospital Encounter [facility] 6S ACUTE [address] [place] [address] Navneet Ríos MD [place]entik, Anne C, DO Fernelius, Joshua, MD Akyuz Yesilyaprak, Kevser, MD Internal Medicine Discharge Disposition: Home or Self Care 06/29/2024 Travel from Last 3 Months Medications * Be aware that medications may [...] Comments Blood Pressure 128/74 07/01/2024 8:51 AM CHECK INSPECTOR Pulse 68 07/01/2024 8:51 AM CHECK INSPECTOR Temperature 36.4 C (97.5 F) 07/01/2024 8:51 AM CHECK INSPECTOR Respiratory Rate 20 07/01/2024 8:51 AM CHECK INSPECTOR Oxygen Saturation 99% 07/01/2024 8:51 AM CHECK INSPECTOR Inhaled Oxygen Concentration - - Weight 62.1 kg (137 lb) 07/01/2024 8:51 AM CHECK INSPECTOR Height 165 cm (5' 4.96 ) 07/01/2024 8:51 AM CHECK INSPECTOR Body Mass Index 22.83 07/01/2024 8:51 AM CHECK INSPECTOR Plan of Treatment Not on file Procedures Procedure Name Priority Date/Time Associated Diagnosis Comments CARDIAC EKG ORDER 07/02/2024 1:1 9 PM CHECK INSPECTOR ECHO COMPLETE Routine 07/01/2024 11:07 AM CHECK INSPECTOR Slurred speech FERRITIN Routine 06/30/2024 5:48 AM CHECK INSPECTOR Left-sided weakness IRON + TRANSFERRIN PANEL Routine 06/30/2024 5:48 AM CHECK INSPECTOR Left-sided weakness CALCIUM IONIZED WHOLE BLOOD AM Draw 06/30/2024 5:47 AM CHECK INSPECTOR Left-sided weakness RETIC COUNT AM Draw 06/30/2024 5:47 AM CHECK INSPECTOR Left-sided weakness RENAL FUNCTION PANEL AM Draw 06/30/2024 5:47 AM CHECK INSPECTOR Left-sided weakness CULTURE BLOOD Timed 06/29/2024 9:37 PM CHECK INSPECTOR Left-sided weakness CULTURE BLOOD Timed 06/29/2024 9:30 PM CHECK INSPECTOR Left-sided weakness MRI BRAIN WO CONTRAST STAT 06/29/2024 8:25 PM CHECK INSPECTOR Slurred speech BLOOD TYPE VERIFICATION STAT 06/29/2024 7:35 PM CHECK INSPECTOR SARS-COV-2 (COVID-19) FLU A/B RSV PCR RAPID STAT 06/29/2024 7:35 PM CHECK INSPECTOR Dehydration XR ABDOMEN KUB PORTABLE STAT 06/29/2024 7:30 PM CHECK INSPECTOR Dehydration XR CHEST 1VW PORTABLE STAT 06/29/2024 7:19 PM CHECK INSPECTOR Dehydration TROPONIN-I HIGH SENSITIVE REFLEX 1HOUR Timed 06/29/2024 6:12 PM CHECK INSPECTOR URINALYSIS REFLEX MICROSCOPIC REFLEX CULTURE STAT 06/29/2024 5:11 PM CHECK INSPECTOR TYPE + SCREEN PANEL STAT 06/29/2024 4 :27 PM CHECK INSPECTOR T4 FREE STAT 06/29/2024 4:27 PM CHECK INSPECTOR TSH REFLEX FREE T4 STAT 06/29/2024 4: 27 PM CHECK INSPECTOR TROPONIN-I HIGH SENSITIVE BASELINE + 1HR STAT 06/29/2024 4:27 PM CHECK INSPECTOR PT-INR [facility] STAT 06/29/2024 4:27 PM CHECK INSPECTOR COMPREHENSIVE METABOLIC PANEL STAT 06/29/2024 4:27 PM CHECK INSPECTOR CBC W AUTO DIFFERENTIAL STAT 06/29/2024 4:[address] ANGIO BRAIN NECK STROKE STAT 06/29/2024 3:52 PM CHECK INSPECTOR Slurred speech CT BRAIN STROKE STAT 06/29/2024 3:51 PM CHECK INSPECTOR Slurred speech CREATININE - POCT INTERFACED Routine 06/29/2024 3:40 PM CHECK INSPECTOR INR WHOLE BLOOD - POINT OF CARE (IP) STROKE Routine 06/29/2024 3:39 PM CHECK INSPECTOR from Last 3 Months Results * CARDIAC EKG ORDER (07/02/2024 1:19 PM CHECK INSPECTOR) Narrative 07/02/2024 1:19 PM CHECK INSPECTOR Ordered by an unspecified provider. Scanned Document CARDIAC SERVICES ORD ERABLES * ECHO COMPLETE (07/01/2024 11:07 AM CHECK INSPECTOR) IVSd 2D 0.816 cm SSM CV FUJ [...] Laterality Modality Ultrasound 07/01/2024 10:1 5 AM CHECK INSPECTOR Narrative 07/01/2024 12:21 PM CHECK INSPECTOR Summary * The left ventricle is normal [...] 10:15 AM Patient Status: OPO Study Site: [facility] Primary Location: [facility] EStudy Info Technical Quality: Good Exam Type: ECHO COMPLETE Indications R47.81 - Slurred speech Procedure(s) * A complete 2D, color Doppler, spectral Doppler, and M-Mode transthoracic echocardiogram was performed. Staff Referring Physician: Devendra Roberts Ordering Provider: Devendra Roberts Attending Physician: Devendra Roberts Abalone Diver: Russell Manzo Left Ventricle The left ventricle [...] 10:15 AM Patient Status: OPO Study Site: [facility] Primary Location: [facility] EStudy Info Technical Quality: Good Exam Type: ECHO COMPLETE Indications R47.81 - Slurred speech Procedure(s) * A complete 2D, color Doppler, spectral Doppler, and M-Modetransthoracic echocardiogram was performed. Staff Referring Physician: Devendra Roberts Ordering Provider: Devendra Roberts Attending Physician: Devendra Roberts Abalone Diver: Russell Manzo Left Ventricle The left ventricle [...] IRON + TRANSFERRIN PANEL (06/30/2024 5:48 AM [facility]) Iron 70 40 - 150 ug/dL 06/30/2024 6:53 AM [facility] Transferrin 173(L) 174 - 382 mg/dL 06/30/2024 6:53 AM [facility] Transferrin Saturation % 32 16 - 50 % 06/30/2024 6:53 AM [facility] TIBC Calculated 216(L) 240 - 450 ug/dL 06/30/2024 6:53 AM [facility] Blood BLOOD SPECIMEN / Unknown Lab Venipuncture / Unknown 06/30/2024 5:48 AM CHECK INSPECTOR 06/30/2024 5:52 AM [facility] Devendra Roberts MD LAB - CHEMISTRY DIANA COOPER [address] [address], [facility] [phone] * (ABNORMAL) FERRITIN (06/30/2024 5:48 AM CHECK INSPECTOR) Ferritin 350(H) 13 - 204 ng/mL 06/30/2024 7:06 AM CHECK INSPECTOR [facility] Blood BLOOD SPECIMEN / Unknown Lab Venipuncture / Unknown 06/30/2024 5:48 AM CHECK INSPECTOR 06/30/2024 5:52 AM CHECK INSPECTOR Devendra Roberts MD LAB - CHEMISTRY DIANA COOPER Performing Organization Address [facility]/ZIP Co de Phone Number [address] [address], [facility] [phone] * (ABNORMAL) CALCIUM IONIZED WHOLE BLOOD (06/30/2024 5:47 AM CHECK INSPECTOR) [facility] Calcium Ionized 1.35 mmol/L 06/30/2024 5:55 AM CHECK INSPECTOR [facility] pH 7.47(H) 7.35 - 7.45 pH 06/30/2024 5:55 AM [facility] Ionized Calcium pH Adjusted 1.39(H) 1.19 - 1.34 mmol/L 06/30/2024 5:55 AM CHECK INSPECTOR [facility] Blood BLOOD SPECIMEN / Unknown Lab Venipuncture / Unknown 06/30/2024 5:47 AM CHECK INSPECTOR 06/30/2024 5:52 AM CHECK INSPECTOR Devendra Roberts MD LAB - CHEMISTRY DIANA COOPER Performing Organization Address City/[facility]/ZIP Co de Phone Number [address] [address], [place] [phone] * RETIC COUNT (06/30/2024 5:47 AM CHECK INSPECTOR) Reticulocyte Percent 2.37 0.50 - 2.40 % 06/30/2024 6:32 AM CHECK INSPECTOR [facility] Reticulocyte Absolute 0.0751 0.0200 - 0.1100 x10E6/uL 06/30/2024 6:32 AM [facility] Ret-HE 34.6 29.0 - 37.9 pg 06/30/2024 6:32 AM [facility] Immature Reticulocyte Fraction 12.5 1.8 - 15.2 % 06/30/2024 6:32 AM [facility] Blood BLOOD SPECIMEN / Unknown Lab Venipuncture / Unknown 06/30/2024 5:47 AM CHECK INSPECTOR 06/30/2024 6:20 AM CHECK INSPECTOR Devendra Roberts MD LAB - HEMATOLOGY ORD ERABLES [facility] [address] [place] [address], [facility] [phone] * (ABNORMAL) RENAL FUNCTION PANEL (06/30/2024 5:47 AM CHECK INSPECTOR) BUN 19 7 - 26 mg/dL 06/30/2024 6:48 AM [facility] Creatinine 0.80 0.56 - 0.96 mg/dL 06/30/2024 6:48 AM [facility] Sodium 143 136 - 145 mmol/L 06/30/2024 6:48 AM [facility] Potassium 3.9 3.5 - 4.5 mmol/L 06/30/2024 6:48 AM [facility] Chloride 110(H) 98 - 107 mmol/L 06/30/2024 6:48 AM [facility] CO2 24 22 - 29 mmol/L 06/30/2024 6:48 AM [facility] Glucose 94 70 - 99 mg/dL 06/30/2024 6:48 AM [facility] Albumin 2.9(L) 3.4 - 5.0 g/dL 06/30/2024 6:48 AM [facility] Calcium 9.8 8.4 - 10.2 mg/dL 06/30/2024 6:48 AM [facility] Phosphorus 4.2 2.9 - 5.1 mg/dL 06/30/2024 6:48 AM CHECK INSPECTOR [facility] Anion Gap 9 6 - 16 06/30/2024 6:48 AM CHECK INSPECTOR [facility] BUN/Creatinine Ratio 24(H) 7 - 23 06/30/2024 6:48 AM CHECK INSPECTOR [facility] LABORATORY [facility] Osmolality Calculated 298(H) 275 - 295 mOsm/kg 06/30/2024 6:48 AM CHECK INSPECTOR [facility] LABOR[facility] eGFR by CKD-EPI 73(L) >=90 mL/min/1.7 3 m2 06/30/2024 6:48 AM CHECK INSPECTOR [facility] Blood BLOOD SPECIMEN / Unknown Lab Venipuncture / Unknown 06/30/2024 5:47 AM CHECK INSPECTOR 06/30/2024 6:21 AM CHECK INSPECTOR Devendra Roberts MD LAB - CHEMISTRY DIANA COOPER [facility] [address] [place] [address], [facility] [phone] * CULTURE BLOOD (06/29/2024 9:37 PM CHECK INSPECTOR) Only the most recent of2 resultswithin the time period is included. Culture No growth day 5 GERTRUDE 07/05/2024 1:30 AM CHECK INSPECTOR [facility] MICROBIOLOGY Blood PERIPHERAL BLOOD / Unknown Lab Venipuncture / Unknown 06/29/2024 9:37 PM CHECK INSPECTOR 06/29/2024 9:41 PM CHECK INSPECTOR Devendra Roberts MD LAB - MICROBIOLOGY O RDERABLES [facility]CROBIOLOG[facility] [address] [place] [address], [facility] [phone] * MRI Brain Wo Contrast (06/29/2024 8:25 PM CHECK INSPECTOR) Anatomical Region Laterality Modality Head Magnetic Resonan ce 07/02/2024 10:1 1 AM CHECK INSPECTOR Impressions 07/02/2024 10:31 AM CHECK INSPECTOR IMPRESSION: 1. No evidence of restricted diffusion to suggest an acute infarction. > Interpreting Provider: Preeti Philip MD on 07/02/2024 10:31 AM Narrative 07/02/2024 10:31 AM CHECK INSPECTOR PROCEDURE: MRI BRAIN WO CONTRAST, DATE/TIME OF EXAM: 06/29/2024 8:25 PM, LOCATION [facility] INDICATION: R47.81: Slurred speech ADDITIONAL CLINICAL INFORMATION: [...] CONTRAST, DATE/TIME OF EXAM: 06/29/2024 8:25PM, LOCATION [facility] INDICATION: R47.81: Slurred speech ADDITIONAL CLINICAL INFORMATION: [...] A/B RSV PCR RAPID (06/29/2024 7:35 PM CHECK INSPECTOR) COVID-19 PCR Not detected Not detected 06/29/20 24 8:14 PM CHECK INSPECTOR [facility] Influenza A PCR Not detected Not detected 06/29/2024 8:14 PM CHECK INSPECTOR [facility] Influenza B PCR Not detected Not detected 06/29/2024 8:14 PM CHECK INSPECTOR [facility] RSV PCR Not detected Not detected 06/29/2024 8:14 PM CHECK INSPECTOR [facility] Microbiology SPECIMEN FROM NASOPHARYNGEAL STRUCTURE / Unknown Collection / Unknown 06/29/2024 7:35 PM CHECK INSPECTOR 06/29/2024 7:35 PM CHECK INSPECTOR Narrative [facility] - 06/29/2024 8:14 PM CHECK INSPECTOR This nucleic acid amplification assay has been [...] Roberts MD LAB - MICROBIOLOGY O RDERABLES [address] [address], [facility] [phone] * BLOOD TYPE VERIFICATION (06/29/2024 7:35 PM CHECK INSPECTOR) ABO Rh A POS 06/29/2024 8:2 1 PM CHECK INSPECTOR [facility]OD [facility] LAB Blood Bank BLOOD SPECIMEN / Unknown Venipuncture / Unknown 06/29/2024 7:35 PM CHECK INSPECTOR 06/29/2024 7:50 PM CHECK INSPECTOR Navneet Lizarraga MD LAB - BLOOD BAN K ORDERABLES Performing Organization Address City/[facility]/ZIP Co de Phone Number [facility] LAB [address] [place] [phone], [facility] [phone] * XR Abdomen Kub Portable (06/29/2024 7:30 PM CHECK INSPECTOR) Anatomical Region Laterality Modality Abdomen Digital Radiogra phy 06/29/2024 7:57 PM CHECK INSPECTOR Impressions 06/30/2024 8:18 AM CHECK INSPECTOR IMPRESSION: Nonobstructive bowel gas pattern. Right renal pelvocaliectasis. Report dictated by Hortensia Voss MD (radiology nurse). IIsiah MD have personally reviewed and interpreted this examination/study. > Interpreting Provider: Isiah Arrington MD on 06/30/2024 8:18 AM Narrative 06/30/2024 8:18 AM CHECK INSPECTOR PROCEDURE: XR ABDOMEN KUB PORTABLE, DATE/TIME OF EXAM: 06/29/2024 7:47 PM, LOCATION [facility] INDICATION: E86.0: Dehydration ADDITIONAL CLINICAL INFORMATION: Ordering [...] DATE/TIME OF EXAM: 06/29/2024 7:47 PM, LOCATION [facility] INDICATION: E86.0: Dehydration ADDITIONAL CLINICAL INFORMATION: Ordering [...] pelvocaliectasis. Report dictated by Hortensia Voss MD (radiology nurse). I, Isiah Arrington MD have personally reviewed and interpreted this examination/study. > Interpreting Provider: Isiah Arrington MD on 06/30/2024 8:18 AM Devendra Roberts MD DIAGNOSTIC IMAGING O RDERABLES * XR Chest 1Vw Portable (06/29/2024 7:19 PM CHECK INSPECTOR) Anatomical Region Laterality Modality Chest Digital Radiogra phy 06/29/2024 7:59 PM CHECK INSPECTOR Narrative 06/30/2024 8:16 AM CHECK INSPECTOR PROCEDURE: XR CHEST 1VW PORTABLE, DATE/TIME OF EXAM: 06/29/2024 7:46 PM, LOCATION [facility] INDICATION: E86.0: Dehydration ADDITIONAL CLINICAL INFORMATION: Ordering Provider Reason For Exam: cough COMPARISON: None. TECHNIQUE: Frontal radiographs of the chest. FINDINGS/IMPRESSION: There is no focal consolidation, pleural effusion, or pneumothorax. The mediastinal and cardiac contours are normal. No acute osseous abnormality is seen. Report dictated by Hortensia Voss M.D. (radiology nurse). Isiah Barone MD have personally reviewed and interpreted this examination/study. > Interpreting Provider: Isiah Arrington MD on 06/30/2024 8:16 AM Procedure Note Isiah Arrington MD - 06/30/2024 PROCEDURE: XR CHEST 1VW PORTABLE, DATE/TIME OF EXAM: 06/29/2024 7:46PM, LOCATION [facility] INDICATION: E86.0: Dehydration ADDITIONAL CLINICAL INFORMATION: Ordering Provider Reason For Exam: cough COMPARISON: None. TECHNIQUE: Frontal radiographs of the chest. FINDINGS/IMPRESSION: There is no focal consolidation, pleural effusion, or pneumothorax. The mediastinal and cardiac contours are normal. No acute osseousabnormality is seen. Report dictated by Hortensia Voss M.D. (radiology nurse). Isiah Barone MD have personally reviewed and interpreted this examination/study. > Interpreting Provider: Isiah Arrington MD on 06/30/2024 8:16 AM Devendra Roberts MD DIAGNOSTIC IMAGING O RDERABLES * TROPONIN-I HIGH SENSITIVE REFLEX 1HOUR (06/29/2024 6:12 PM CHECK INSPECTOR) Troponin I High Sensitive 8 <=14 ng/L 06/29/2024 7:16 PM [facility] Delta Troponin I HS 06/29/2024 7:16 PM [facility] Comment:Delta value intentio deloris not calculated. Baseline to 1 hour specimen collection interval exceeded. Blood BLOOD SPECIMEN / Unknown Venipuncture / Unknown 06/29/2024 6:12 PM CHECK INSPECTOR 06/29/2024 6:41 PM CHECK INSPECTOR Navneet Lizarraga MD LAB - CHEMISTRY ORDERABLES [address] [address] [phone] * (ABNORMAL) URINALYSIS REFLEX MICROSCOPIC REFLEX CULTURE (06/29/2024 5:11 PM CHECK INSPECTOR) Color UA Yellow Straw, Yellow 06/29/2024 5:47 PM [facility] Clarity UA Slt Cloudy(A) Clear 06/29/2024 5:47 PM [facility] Specific [place] UA 1.031(H) 1.005 - 1.030 06/29/2024 5:47 PM [facility] pH UA 8.0 5.0 - 8.0 pH 06/29/2024 5:47 PM [facility] Protein UA Negative Negative 06/29/2024 5:47 PM [facility] Glucose UA Negative Negative 06/29/2024 5:47 PM [facility] Ketone UA Trace(A) Negative 06/29/2024 5:47 PM [facility] Bilirubin UA Negative Negative 06/29/2024 5:47 PM [facility] Blood UA Negative Negative 06/29/2024 5:47 PM [facility] Nitrite UA Negative Negative 06/29/2024 5:47 PM [facility] Leukocyte Esterase Negative Negative 06/29/2024 5:47 PM [facility] Urobilinogen UA Negative Negative mg/dL 06/29/2024 5:47 PM [facility] Comment UA Microscopic not indicated. 06/29/2024 5:47 PM [facility] Urine URINE SPECIMEN OBTAINED BY CLEAN CATCH PROCEDURE / Unknown Collection / Unknown 06/29/2024 5:11 PM CHECK INSPECTOR 06/29/2024 5:16 PM CHECK INSPECTOR Narrative [facility] - 06/29/2024 5:47 PM CHECK INSPECTOR Navneet Lizarraga MD LAB - URINALYSI S ORDERABLES [address] [place] [address], [facility] [phone] * PT-INR [facility] (06/29/2024 4:27 PM CHECK INSPECTOR) [facility] PT 12.9 12.1 - 14.8 Seconds 06/29/2024 5:01 PM [facility] INR 1.0 See Comment 06/29/2024 5:01 PM [facility] Comment:The suggested therap eutic range for standard coumadin (warfarin) therapy is an INR of 2.0-3.0. For high-risk patients (Mechanical Mitral Valve Prosthesis, etc.), the suggested prophylactic therapeutic range is an INR of 2.5-3.5. Blood BLOOD SPECIMEN / Unknown Venipuncture / Unknown 06/29/2024 4:27 PM CHECK INSPECTOR 06/29/2024 4:36 PM CHECK INSPECTOR Navneet Lizarraga MD LAB - COAGULATI ON ORDERABLES [address] [address], [facility] [phone] * TROPONIN-I HIGH SENSITIVE BASELINE + 1HR (06/29/2024 4:27 PM CHECK INSPECTOR) [facility] Troponin I High Sensitive <3 <=14 ng/L 06/29/2024 5:11 PM CHECK INSPECTOR [facility] Blood BLOOD SPECIMEN / Unknown Venipuncture / Unknown 06/29/2024 4:27 PM CHECK INSPECTOR 06/29/2024 4:38 PM CHECK INSPECTOR Navneet Lizarraga MD LAB - CHEMISTRY ORDERABLES [address] [address], [place] [phone] * (ABNORMAL) TSH REFLEX FREE T4 (06/29/2024 4:27 PM CHECK INSPECTOR) [facility] TSH 6.035(H) 0.350 - 4.940 uIU/mL 06/29/2024 7:18 PM CHECK INSPECTOR [facility] Blood BLOOD SPECIMEN / Unknown Venipuncture / Unknown 06/29/2024 4:27 PM CHECK INSPECTOR 06/29/2024 4:38 PM CHECK INSPECTOR Navneet Lizarraga MD LAB - CHEMISTRY ORDERABLES Performing Organization Address City/[facility]/ZIP Co de Phone Number [facility] [address] [place] [address], [facility] [phone] * TYPE + SCREEN PANEL (06/29/2024 4:27 PM CHECK INSPECTOR) [facility] Antibody Screen NEG 5:23 PM [facility] ABO Rh A POS 06/29/2024 5:23 PM [facility] Blood Bank BLOOD SPECIMEN / Unknown Venipuncture / Unknown 06/29/2024 4:27 PM CHECK INSPECTOR 06/29/2024 4:46 PM CHECK INSPECTOR Navneet Lizarraga MD LAB - BLOOD BAN K ORDERABLES Performing Organization Address City/[facility]/ZIP Co de Phone Number [facility] [address] [place] [phone], [facility] [phone] * (ABNORMAL) CBC W AUTO DIFFERENTIAL (06/29/2024 4:27 PM CHECK INSPECTOR) [facility] WBC 11.2(H) 4.0 - 10.7 x10E9/L 06/29/2024 4:41 PM [facility] RBC Count 3.72(L) 3.90 - 5.20 x10E12/L 06/29/2024 4:41 PM [facility] Hemoglobin 11.3(L) 11.9 - 15.8 g/dL 06/29/2024 4:41 PM [facility] Hematocrit 33.9(L) 34.8 - 46.1 % 06/29/2024 4:41 PM [facility] MCV 91.1 80.0 - 98.0 fL 06/29/2024 4:41 PM [facility] MCH 30.4 26.7 - 33.6 pg 06/29/2024 4:41 PM [facility] MCHC 33.3 31.7 - 36.3 g/dL 06/29/2024 4:41 PM [facility] RDW-CV 13.2 11.3 - 14.8 % 06/29/2024 4:41 PM [facility] Platelet Count 353 150 - 420 x10E9/L 06/29/2024 4:41 PM [facility] MPV 9.3 7.8 - 11.4 fL 06/29/2024 4:41 PM [facility] Neutrophil % 81.2(H) 41.0 - 74.0 % 06/29/2024 4:41 PM [facility] Lymphocyte % 11.0(L) 17.0 - 47.0 % 06/29/2024 4:41 PM [facility] Monocyte % 3.9 3.0 - 11.0 % 06/29/2024 4:41 PM [facility] Eosinophil % 2.2 0.0 - 7.0 % 06/29/2024 4:41 PM [facility] Basophil % 0.6 0.0 - 1.6 % 06/29/2024 4:41 PM [facility] Immature Granulocytes % 1.1(H) 0.0 - 1.0 % 06/29/2024 4:41 PM [facility] Neutrophil Absolute 9.08(H) 1.60 - 7.50 x10E9/L 06/29/2024 4:41 PM [facility] Lymphocyte Absolute 1.23 1.00 - 4.40 x10E9/L 06/29/2024 4:41 PM [facility] Monocyte Absolute 0.44 0.15 - 1.00 x10E9/L 06/29/2024 4:41 PM [facility] Eosinophil Absolute 0.25 0.00 - 0.60 x10E9/L 06/29/2024 4:41 PM [facility] Basophil Absolute 0.07 0.00 - 0.13 x10E9/L 06/29/2024 4:41 PM [facility] Blood BLOOD SPECIMEN / Unknown Venipuncture / Unknown 06/29/2024 4:27 PM CHECK INSPECTOR 06/29/2024 4:38 PM CHECK INSPECTOR Navneet Lizarraga MD LAB - HEMATOLOG Y ORDERABLES [facility] [address] [place] [address], [facility] [phone] * (ABNORMAL) COMPREHENSIVE METABOLIC PANEL (06/29/2024 4:27 PM CHECK INSPECTOR) BUN 25 7 - 26 mg/dL 06/29/2024 5:07 PM [facility] Creatinine 0.82 0.56 - 0.96 mg/dL 06/29/2024 5:07 PM [facility] Sodium 144 136 - 145 mmol/L 06/29/2024 5:07 PM [facility] Potassium 4.3 3.5 - 4.5 mmol/L 06/29/2024 5:07 PM [facility] Chloride 105 98 - 107 mmol/L 06/29/2024 5:07 PM [facility] CO2 23 22 - 29 mmol/L 06/29/2024 5:07 PM [facility] Glucose 152(H) 70 - 99 mg/dL 06/29/2024 5:07 PM [facility] Calcium 10.8(H) 8.4 - 10.2 mg/dL 06/29/2024 5:07 PM [facility] Protein Total 8.2 6.0 - 8.3 g/dL 06/29/2024 5:07 PM [facility] Albumin 4.0 3.4 - 5.0 g/dL 06/29/2024 5:07 PM [facility] Bilirubin Total 0.4 0.2 - 1.2 mg/dL 06/29/2024 5:07 PM [facility] Alkaline Phosphatase 85 40 - 150 U/L 06/29/2024 5:07 PM [facility] ALT 19 5 - 55 U/L 06/29/2024 5:07 PM [facility] AST 30 5 - 34 U/L 06/29/2024 5:07 PM [facility] Anion Gap 16 6 - 16 06/29/2024 5:07 PM [facility] BUN/Creatinine Ratio 30(H) 7 - 23 06/29/2024 5:07 PM [facility] Osmolality Calculated 305(H) 275 - 295 mOsm/kg 06/29/2024 5:07 PM [facility] Albumin/Globulin Ratio 1.0(L) 1.1 - 2.3 06/29/2024 5:07 PM [facility] eGFR by CKD-EPI 71(L) >=90 mL/min/1.7 3 m2 06/29/2024 5:07 PM [facility] Blood BLOOD SPECIMEN / Unknown Venipuncture / Unknown 06/29/2024 4:27 PM CHECK INSPECTOR 06/29/2024 4:38 PM CHECK INSPECTOR Navneet Lizarraga MD LAB - CHEMISTRY ORDERABLES [facility] [address] [place] [address], [place] [phone] * T4 FREE (06/29/2024 4:27 PM CHECK INSPECTOR) T4 Free 1.2 0.7 - 1.5 ng/dL 06/29/2024 7:51 PM [facility] Blood BLOOD SPECIMEN / Unknown Venipuncture / Unknown 06/29/2024 4:27 PM CHECK INSPECTOR 06/29/2024 4:38 PM CHECK INSPECTOR Navneet Lizarraga MD LAB - CHEMISTRY ORDERABLES [facility] [address] [place] [address], [place] [phone] * CT Angio Brain Neck Stroke (06/29/2024 3:52 PM CHECK INSPECTOR) Anatomical Region Laterality Modality Head Computed Tomogra phy 06/29/2024 4:26 PM CHECK INSPECTOR Impressions 06/29/2024 4:33 PM CHECK INSPECTOR IMPRESSION: 1. No acute intracranial hemorrhage. 2. No large arterial occlusions or hemodynamically significant stenoses identified in the head or neck. Viz.AI was used for large vessel occlusion detection. > Interpreting Provider: Preeti Philip MD on 06/29/2024 4:33 PM Narrative 06/29/2024 4:33 PM CHECK INSPECTOR PROCEDURE: CT ANGIO BRAIN NECK STROKE, DATE/TIME OF EXAM: 06/29/2024 3:52 PM, LOCATION [facility] INDICATION: R47.81: Slurred speech ADDITIONAL CLINICAL INFORMATION: [...] STROKE, DATE/TIME OF EXAM: 43:52 PM, LOCATION [facility] INDICATION: R47.81: Slurred speech ADDITIONAL CLINICAL INFORMATION: [...] CT BRAIN - Stroke (06/29/2024 3:51 PM CHECK INSPECTOR) Anatomical Region Laterality Modality Head Computed Tomogra phy 06/29/2024 3:36 PM CHECK INSPECTOR Impressions 06/29/2024 4:25 PM CHECK INSPECTOR IMPRESSION: 1.No acute intracranial hemorrhage. 2.Please note that CT is insensitive to nonhemorrhagic strokes and MRI of the brain should be considered if there is clinical concern for acute cerebral infarction. > Dictated by Brenton Dickson MD (Exercise Rider), 06/29/2024 3:38 PM. Results were discussed with Dr. Carloz M.D. by Dr. Brenton Dickson M.D. (Exercise Rider) at 3:36PM on 06/29/24 with readback confirmation. These findings were discussed with Dr. Philip by Dr. Dickson prior to this dictation. I, Preeti Philip MD have personally reviewed and interpreted this examination/study. > Interpreting Provider: Preeti Philip MD on 06/29/2024 4:25 PM Narrative 06/29/2024 4:25 PM CHECK INSPECTOR PROCEDURE: CT BRAIN STROKE, DATE/TIME OF EXAM: 06/29/2024 3:30 PM, LOCATION [facility] INDICATION: Code Stroke TECHNIQUE: CT of the [...] DATE/TIME OF EXAM: 06/29/2024 3:30 PM, LOCATION [facility] INDICATION: Code Stroke TECHNIQUE: CT of the [...] infarction. > Dictated by Brenton Dickson MD (Exercise Rider), 06/29/2024 3:38 PM. Results were discussed with Dr. Carloz M.D. by Dr. Brenton Dickson M.D. (Exercise Rider) at 3:36PM on 06/29/24 with readback confirmation. These findings were discussed with Dr. Philip by Dr. Dickson prior to this dictation. IPreeti MD have personally reviewed and interpretedthis examination/study. > Interpreting Provider: Preeti Philip MD on 06/29/2024 4:25 PM Navneet Lizarraga MD CT ORDERABLES * (ABNORMAL) CREATININE - POCT INTERFACED (06/29/2024 3:40 PM CHECK INSPECTOR) Creatinine POCT 0.62 0.30 - 1.30 mg/dL 06/29/2024 3:51 PM [facility] eGFR 88(L) >=90 mL/min/1.7 3 m2 06/29/2024 3:51 PM [facility] Blood BLOOD SPECIMEN / Unknown 06/29/2024 3:40 PM CHECK INSPECTOR 06/29/2024 3:51 PM CHECK INSPECTOR Navneet Lizarraga MD LAB - POINT OF CARE ORDERABLES [facility] [address] [place] [address], [place] [phone] * INR WHOLE BLOOD - POINT OF CARE (IP) STROKE (06/29/2024 3:39 PM CHECK INSPECTOR) INR 1.0 0.9 - 1.2 06/30/2024 5:38 AM [facility] Device [id number] 06/30/2024 5:38 AM [facility] Application Programmer Analyst ID [id number] 06/30/2024 5:38 AM [facility] Blood BLOOD SPECIMEN / Unknown 06/29/2024 3:39 PM CHECK INSPECTOR 06/30/2024 5:38 AM CHECK INSPECTOR Navneet Lizarraga MD LAB - POINT OF CARE ORDERABLES [facility] [address] [place] [address], [place] [phone] from Last 3 Months Advance Directives * Full Code (Latest Code Status on File) Date Activated Date Inactivated Comments 06/29/2024 6:25 PM 07/01/2024 5:22 PM Care Teams Metal Model Builder Relationship Specialty Start Date End Date Kole Pond MD [address] [place] [id number] PCP - General 01/24/09
--- OUTSIDE RECORDS SUMMARY | 2024-09-09 23:28 | XMS_ITS | Encounter Summary ---
Author Organization [facility] Address [address] [place] [address] Phone Care Team Providers Care Civil Engineer Name Role Phone Zak Thrasher MD Primary Care Provider [phone] Sacha Dash MD Primary Care Provider + Shruthi Chacko LPN Unavailable [phone] Encounter Details Date Type Department Care Team (Latest Contact Info) Description 01/03/2024 Orders Only [facility]/WRIST Scanning, Provider Social History Tobacco Use Types Packs/Day Years [...] on file Legal Sex Female 1:44 PM FOUNDATION DIGGER Gender Identity Not on file Sexual Orientation Not on file Occupation Industry Job Start Date Job End Date Retired Not on file Not on file Not on file documented as of this encounter Plan of Treatment Not on file documented as of this encounter Procedures Procedure Name Priority Date/Time Associated Diagnosis Comments SCAN - RADIOLOGY/IMAGING 01/03/2024 documented in this encounter Results * SCAN - RADIOLOGY/IMAGING (01/03/2024) Anatomical Region Laterality Modality Other us Provider Scanning Edited Result - Final documented in this encounter Visit Diagnoses Not on filedocumented in this encounter Care Teams Civil Engineer Relationship Specialty Start Date End Date Zak Thrasher MD PCP - General Internal Medicine 02/28/20 03/29/24 Sacha Dash MD [address] [place] [address] PCP - General Internal Medicine 03/30/24 Shruthi Chacko LPN [address] [place] [address] [address] [place] [address] Nylon Machine Operator 07/05/24 07/05/24 documented as of this encounter
--- OUTSIDE RECORDS SUMMARY | 2024-09-09 23:28 | XMS_ITS | Referral Summary ---
Author Organization [facility] Address [address] [place] [address] Care Team Providers Care Fast Food Team Member Name Role Phone Sacha Dash MD Primary Care Provider + Encounters Date Type Department Care Team Description 07/05/2024 MARK IP Outreach [facility] Care Organization [address] [place] [id number] Shruthi Chacko LPN from Last 3 Months Allergies No known active allergies Medications denosumab [...] total) by mouth nightly 30 tablet 10/10/2023 Active atorvastatin (LIPITOR) 20 mg tablet TAKE [...] Lumbar spinal stenosis 04/29/2022 Overview (04/29/2022): MRI 2020 Assessment & Plan (04/29/2022 5:39 PM CDT): [...] effects. Assessment & Plan (07/06/2021 3:16 PM DIRECTOR OF OPTIMIZATION): Increase donepezil to 10 mg daily. Warned of side effects and call back if any develop. Laboratory workup an MRI unremarkable. Assessment & Plan (04/13/2021 6:40 PM CDT): Probably represents Alzheimer's dementia given family history and her [facility] MS score 16/30. Laboratory workup and MRI evaluation before next visit. Start donepezil 5 mg daily and warned of side effects. If none developed, then increase to 10 mg after 30 days. Hyperkalemia 03/24/2021 Assessment & Plan (04/13/2021 6:39 PM CDT): Repeat potassium level before next visit. Insomnia 10/12/2020 Assessment & Plan (04/29/2022 5:39 PM CDT): No complaints today. Assessment & Plan (07/06/2021 3:16 PM DIRECTOR OF OPTIMIZATION): Use trazodone as needed. Assessment & Plan [...] atorvastatin Assessment & Plan (07/06/2021 3:16 PM DIRECTOR OF OPTIMIZATION): Continue her atorvastatin check lipids and LFTs before next visit. Assessment & Plan (04/13/2021 6:38 PM CDT): LDL well controlled on her atorvastatin. Assessment & Plan (10/12/2020 11:17 AM CDT): LDL better controlled on her atorvastatin. Assessment & Plan (06/20/2020 5:54 PM DIRECTOR OF OPTIMIZATION): Atorvastatin resent to her pharmacy and will [...] 2023. Assessment & Plan (07/06/2021 3:16 PM DIRECTOR OF OPTIMIZATION): Continue calcium, vitamin-D, weight-bearing exercise, Prolia and repeat bone density scan every 2 years. Assessment & Plan (04/13/2021 6:38 PM CDT): Calcium, vitamin-D, weight-bearing exercise, Prolia and repeat bone density scan approximately every 2 years. Assessment & Plan (10/12/2020 11:17 AM CDT): Continue calcium, vitamin-D, weight-bearing exercise, Prolia and repeat bone density scan March 2021. Assessment & Plan (06/20/2020 5:53 PM DIRECTOR OF OPTIMIZATION): Continue calcium, vitamin-D, weight-bearing exercise, Prolia and [...] this exam were completed as outlined by [facility]. Environmental allergies 04/26/2018 Assessment & Plan (05/03/2018 2:52 PM CDT): Will refer to allergy for full evaluatipn Assessment & Plan (04/26/2018 2:59 PM CDT): Start Zyrtec and Flonase. Irrigate sinuses with saline. Patient verbalizes understanding. Vasovagal syncope 06/15/2017 Assessment & Plan (08/11/2017 2:07 PM DIRECTOR OF OPTIMIZATION): She has had an extensive workup so far however has been told that she needs bilateral carotids and MRI brain by Ophthalmology Assessment & Plan (06/29/2017 4:18 PM DIRECTOR OF OPTIMIZATION): History and previous cardiac evaluation is most [...] syncope. Assessment & Plan (06/15/2017 11:55 AM DIRECTOR OF OPTIMIZATION): States she passed out a couple times [...] mg Assessment & Plan (05/25/2017 9:09 AM DIRECTOR OF OPTIMIZATION): states she may feel a little better Assessment & Plan (04/13/2017 11:20 AM CDT): She definitely has some evidence of depression at this point we will start low- dose Zoloft see her back in 4-5 weeks I will also begin with lab work today Seasonal allergic rhinitis due to pollen 017 Assessment & Plan (07/06/2021 3:16 PM DIRECTOR OF OPTIMIZATION): Continue her azelastine and Zyrtec and follow-up with her underwriting internship as they direct. Assessment & Plan (04/13/2021 6:39 PM CDT): Restart Zyrtec and try azelastine. Assessment & Plan (06/20/2020 5:53 PM DIRECTOR OF OPTIMIZATION): Continue Zyrtec as needed. Assessment & Plan [...] 04/06/2019 Assessment & Plan (06/29/2017 4:16 PM DIRECTOR OF OPTIMIZATION): Very atypical and much more suspicious of gastroesophageal reflux. Supporting a noncardiac diagnosis is the favorable findings on her stress test and echocardiogram. Could consider an skut-aar-onqoras H2 damien or proton pump inhibitor. Would [...] reviewed her extensive workup she has seen [facility] Ophthalmology with negative workup, she then saw Neurology with negative workup, we recently check labs which are negative as well at this point she believes this is may be mood related and appears to be somewhat improving Assessment & Plan (03/07/2018 10:39 AM CDT): Our major discussion today was about her blurred vision. We have Center for full evaluation with [facility] including full ophthalmological evaluation. Ophthalmology does not [...] well Assessment & Plan (08/11/2017 2:08 PM DIRECTOR OF OPTIMIZATION): She is under an extensive evaluation ophthalmological E she had a test this morning which we are waiting on results I will order carotid an MRI Assessment & Plan (05/25/2017 9:07 AM DIRECTOR OF OPTIMIZATION): states it comes on and off , has seen Dr RAJAN at [facility], very unclear how she is describing it states she was on vacation and had no blurred vision Will refer for second opinion to [facility] Assessment & Plan (04/13/2017 11:19 AM CDT): [...] Dysfunction of both eustachian tubes 04/05/2017 04/06/2019 Immunizations Immunization Administration Dates Next Due Hep [...] Pneumococcal Polysaccharide PPV23 12/03/2009 Typhoid Inactivated 03/16/2012 Social History Tobacco Use Types Packs/Day Years [...] on file Legal Sex Female 1:44 PM DIRECTOR OF OPTIMIZATION Gender Identity Not on file Sexual Orientation Not on file Occupation Industry Job Start Date Job End Date Retired Not on file Not on file Not on file Last Filed Vital Signs [...] 02/01/2024 2:48 PM CDT Plan of Treatment Not on file Procedures [...] Anatomical Region Laterality Modality Breast N/A Mammography Generic External Data Provider IMG MAMMO PROCEDU RES Final Result * Dexa Axial Skeleton Bone Density 1 or 2 Site (04/15/2021) Anatomical Region Laterality Modality Body N/A Radiographic Regina ging Zak Thrasher MD IMG DXA PROCEDURES Final Res ult * Colonoscopy (08/18/2018) Anatomical Region Laterality Modality Other Impressions 08/18/2018 Colonoscopy performed today - dr carmona Historical Provider ENDOSCOPY PROCEDURES Kathie l Result from Last 3 Months or Most Recently Relevant to Health Maintenance Insurance [facility] MEDICARE T MEDICARE [facility] MEDICARE Care Teams Fast Food Team Member Relationship Specialty Start Date End Date Sacha Dash MD [address] [place] [address] PCP - General Internal Medicine 03/30/24
[2024-09-09 23:45] VITALS: BP 151/92; PULSE 103; RESP 18; TEMP 36.3; O2SAT 94
[2024-09-10 00:16] LABS: Basophils Percent Auto 0.3 % (0.2-1.2); Eosinophils Percent Auto 0.1 % (0-4.4); Hematocrit 34.7 % (37.0-47.0); Immature Granulocyte Absolute 0.07 K/mm3 (0.00-0.031); Immature Granulocyte Percent A 0.5 % (0-0.5); Lymphocytes Absolute Auto 1.47 K/mm3 (0.9-3.2); Lymphocytes Percent Auto 10.5 % (18.3-44.2); Mean Corpuscular HGB Conc 31.7 g/dl (32-36); Mean Corpuscular Hemoglobin 29.7 pg (26-34); Mean Corpuscular Volume 93.8 fl (80-100); Monocytes Percent Auto 7.4 % (2.6-8.5); Neutrophils Absolute Auto 11.3 K/mm3 (1.3-6.7); Neutrophils Percent Auto 81.2 % (45.5-73.1); Platelet Count Result 438 k/mm3 (150-375)
[2024-09-10 00:30] LABS: Alanine Aminotransferase 19 U/L (6-35); Albumin Level 3.8 g/dL (3.5-5.1); Alkaline Phosphatase 87 U/L (38-126); Anion Gap 11 mmol/L (4-12); Aspartate Amino Transferase 33 U/L (14-36); Bilirubin,Total 0.6 mg/dL (0.2-1.3); Blood Urea Nitrogen 23 mg/dL (7-17); Calcium 10.6 mg/dL (8.4-10.2); Carbon Dioxide 26 mmol/L (22-30); Chloride 102 mmol/L (98-107); Estimated CRCL calculation 40 ml/min; Estimated Glomerular Filt Rate > 60; Glucose 186 mg/dL (65-110); Lipase 25 U/L (23-300); Potassium 3.7 mmol/L (3.4-5.0); Sodium 139 mmol/L (137-145)
[2024-09-10 00:52] LABS: Influenza A QL RT-PCR Negative (Negative); Influenza B QL RT-PCR Negative (Negative); RSV RNA, RT-PCR Negative (Negative); SARS-CoV-2 RNA PCR Negative (Negative)
--- NOTE | 2024-09-10 01:17 | PC.NURSE ---
Dgtr came to ED triage desk requesting to have pt's IV removed because they would like to go home. Pt's dgtr stated pt looks better and if she thinks her mom needs to come in in the morning she will bring her back. IV removed
--- OUTSIDE RECORDS SUMMARY | 2024-09-10 01:36 | XMS_ITS | Patient Health Summary ---
Author Organization [facility] Address [address] [place] [address] Care Team Providers Care Sales Representative Trainee Name Role Phone Kole Pond MD Primary Care Provider [phone] Note from [facility],non-owned Affiliates and Associated Physician Practices is amultiple site organization consisting of ambulatory clinics and hospital sitesin [place], [place], [place] and [place]. This disclosure is being madepursuant to the Care Everywhere program and may not contain all information available regarding this patient. Last updated 18.[facility] Medications * Be aware that medications may [...] Comments Blood Pressure 128/74 07/01/2024 8:51 AM TESTER/LIFT TRUCKER Pulse 68 07/01/2024 8:51 AM TESTER/LIFT TRUCKER Temperature 36.4 C (97.5 F) 07/01/2024 8:51 AM TESTER/LIFT TRUCKER Respiratory Rate 20 07/01/2024 8:51 AM TESTER/LIFT TRUCKER Oxygen Saturation 99% 07/01/2024 8:51 AM TESTER/LIFT TRUCKER Inhaled Oxygen Concentration - - Weight 62.1 kg (137 lb) 07/01/2024 8:51 AM TESTER/LIFT TRUCKER Height 165 cm (5' 4.96 ) 07/01/2024 8:51 AM TESTER/LIFT TRUCKER Body Mass Index 22.83 07/01/2024 8:51 AM TESTER/LIFT TRUCKER Procedures * CARDIAC EKG ORDER(Performed 07/02/2024) * [...] * CARDIAC EKG ORDER (07/02/2024 1:19 PM TESTER/LIFT TRUCKER) Narrative 07/02/2024 1:19 PM TESTER/LIFT TRUCKER Ordered by an unspecified provider. Scanned Document CARDIAC SERVICES ORD ERABLES * ECHO COMPLETE (07/01/2024 11:07 AM TESTER/LIFT TRUCKER) IVSd 2D 0.816 cm [facility] CV FUJ [...] Laterality Modality Ultrasound 07/01/2024 10:1 5 AM TESTER/LIFT TRUCKER Narrative 07/01/2024 12:21 PM TESTER/LIFT TRUCKER Summary * The left ventricle is normal [...] 10:15 AM Patient Status: OPO Study Site: [facility] Primary Location: [facility] Info Technical Quality: Good Exam Type: ECHO COMPLETE Indications R47.81 - Slurred speech Procedure(s) * A complete 2D, color Doppler, spectral Doppler, and M-Mode transthoracic echocardiogram was performed. Staff Referring Physician: Devendra Roberts Ordering Provider: Devendra Roberts Attending Physician: Devendra Roberts Turkey Roll Maker: Russell Manzo Left Ventricle The left ventricle [...] 10:15 AM Patient Status: OPO Study Site: [facility] Primary Location: [facility] EStudy Info Technical Quality: Good Exam Type: ECHO COMPLETE Indications R47.81 - Slurred speech Procedure(s) * A complete 2D, color Doppler, spectral Doppler, and M-Modetransthoracic echocardiogram was performed. Staff Referring Physician: Devendra Roberts Ordering Provider: Devendra Roberts Attending Physician: Devendra Roberts Turkey Roll Maker: Russell Manzo Left Ventricle The left ventricle [...] IRON + TRANSFERRIN PANEL (06/30/2024 5:48 AM [facility]) Iron 70 40 - 150 ug/dL 06/30/2024 6:53 AM [facility] Transferrin 173(L) 174 - 382 mg/dL 06/30/2024 6:53 AM [facility] Transferrin Saturation % 32 16 - 50 % 06/30/2024 6:53 AM [facility] TIBC Calculated 216(L) 240 - 450 ug/dL 06/30/2024 6:53 AM [facility] Blood BLOOD SPECIMEN / Unknown Lab Venipuncture / Unknown 06/30/2024 5:48 AM [facility] 06/30/2024 5:52 AM TESTER/LIFT TRUCKER Devendra Roberts MD LAB - CHEMISTRY DIANA COOPER [address] [address], [place] [phone] * (ABNORMAL) FERRITIN (06/30/2024 5:48 AM TESTER/LIFT TRUCKER) Ferritin 350(H) 13 - 204 ng/mL 06/30/2024 7:06 AM TESTER/LIFT TRUCKER [facility] Blood BLOOD SPECIMEN / Unknown Lab Venipuncture / Unknown 06/30/2024 5:48 AM TESTER/LIFT TRUCKER 06/30/2024 5:52 AM TESTER/LIFT TRUCKER Devendra Roberts MD LAB - CHEMISTRY DIANA COOPER Performing Organization Address [facility]/ZIP Co de Phone Number [address] [address], [place] [phone] * (ABNORMAL) CALCIUM IONIZED WHOLE BLOOD (06/30/2024 5:47 AM TESTER/LIFT TRUCKER) [facility] Calcium Ionized 1.35 mmol/L 06/30/2024 5:55 AM [facility] pH 7.47(H) 7.35 - 7.45 pH 06/30/2024 5:55 AM [facility] Ionized Calcium pH Adjusted 1.39(H) 1.19 - 1.34 mmol/L 06/30/2024 5:55 AM [facility] Blood BLOOD SPECIMEN / Unknown Lab Venipuncture / Unknown 06/30/2024 5:47 AM TESTER/LIFT TRUCKER 06/30/2024 5:52 AM TESTER/LIFT TRUCKER Devendra Roberts MD LAB - CHEMISTRY DIANA COOPER [address] [address], [place] [phone] * RETIC COUNT (06/30/2024 5:47 AM TESTER/LIFT TRUCKER) Reticulocyte Percent 2.37 0.50 - 2.40 % 06/30/2024 6:32 AM [facility] Reticulocyte Absolute 0.0751 0.0200 - 0.1100 x10E6/uL 06/30/2024 6:32 AM [facility] Ret-HE 34.6 29.0 - 37.9 pg 06/30/2024 6:32 AM [facility] Immature Reticulocyte Fraction 12.5 1.8 - 15.2 % 06/30/2024 6:32 AM [facility] Blood BLOOD SPECIMEN / Unknown Lab Venipuncture / Unknown 06/30/2024 5:47 AM TESTER/LIFT TRUCKER 06/30/2024 6:20 AM [facility] Devendra Roberts MD LAB - HEMATOLOGY ORD ERABLES [facility] [address] [place] [address], [facility] [phone] * (ABNORMAL) RENAL FUNCTION PANEL (06/30/2024 5:47 AM [facility]) BUN 19 7 - 26 mg/dL 06/30/2024 6:48 AM [facility] Creatinine 0.80 0.56 - 0.96 mg/dL 06/30/2024 6:48 AM [facility] Sodium 143 136 - 145 mmol/L 06/30/2024 6:48 AM [facility] Potassium 3.9 3.5 - 4.5 mmol/L 06/30/2024 6:48 AM [facility] Chloride 110(H) 98 - 107 mmol/L 06/30/2024 6:48 AM [facility] CO2 24 22 - 29 mmol/L 06/30/2024 6:48 AM [facility] Glucose 94 70 - 99 mg/dL 06/30/2024 6:48 AM [facility] Albumin 2.9(L) 3.4 - 5.0 g/dL 06/30/2024 6:48 AM [facility] Calcium 9.8 8.4 - 10.2 mg/dL 06/30/2024 6:48 AM [facility] Phosphorus 4.2 2.9 - 5.1 mg/dL 06/30/2024 6:48 AM [facility] Anion Gap 9 6 - 16 06/30/2024 6:48 AM [facility] BUN/Creatinine Ratio 24(H) 7 - 23 06/30/2024 6:48 AM [facility] Osmolality Calculated 298(H) 275 - 295 mOsm/kg 06/30/2024 6:48 AM [facility] eGFR by CKD-EPI 73(L) >=90 mL/min/1.7 3 m2 06/30/2024 6:48 AM [facility] Blood BLOOD SPECIMEN / Unknown Lab Venipuncture / Unknown 06/30/2024 5:47 AM TESTER/LIFT TRUCKER 06/30/2024 6:21 AM TESTER/LIFT TRUCKER Devendra Roberts MD LAB - CHEMISTRY DIANA COOPER [facility] [address] [place] [address], [facility] [phone] * CULTURE BLOOD (06/29/2024 9:37 PM TESTER/LIFT TRUCKER) Only the most recent of2 resultswithin the time period is included. Culture No growth day 5 GERTRUDE 07/05/2024 1:30 AM TESTER/LIFT TRUCKER [facility] Blood PERIPHERAL BLOOD / Unknown Lab Venipuncture / Unknown 06/29/2024 9:37 PM TESTER/LIFT TRUCKER 06/29/2024 9:41 PM TESTER/LIFT TRUCKER Devendra Roberts MD LAB - MICROBIOLOGY O RDERABLES [facility] [address] [place] [address], [facility] [phone] * MRI Brain Wo Contrast (06/29/2024 8:25 PM TESTER/LIFT TRUCKER) Anatomical Region Laterality Modality Head Magnetic Resonan ce 07/02/2024 10:1 1 AM TESTER/LIFT TRUCKER Impressions 07/02/2024 10:31 AM TESTER/LIFT TRUCKER IMPRESSION: 1. No evidence of restricted diffusion to suggest an acute infarction. > Interpreting Provider: Preeti Philip MD on 07/02/2024 10:31 AM Narrative 07/02/2024 10:31 AM TESTER/LIFT TRUCKER PROCEDURE: MRI BRAIN WO CONTRAST, DATE/TIME OF EXAM: 06/29/2024 8:25 PM, LOCATION [facility] INDICATION: R47.81: Slurred speech ADDITIONAL [...] CONTRAST, DATE/TIME OF EXAM: 06/29/2024 8:25PM, LOCATION [facility] INDICATION: R47.81: Slurred speech ADDITIONAL [...] A/B RSV PCR RAPID (06/29/2024 7:35 PM TESTER/LIFT TRUCKER) COVID-19 PCR Not detected Not detected 06/29/20 8:14 PM TESTER/LIFT TRUCKER [facility] Influenza A PCR Not detected Not detected 06/29/2024 8:14 PM TESTER/LIFT TRUCKER [facility] Influenza B PCR Not detected Not detected 06/29/2024 8:14 PM TESTER/LIFT TRUCKER [facility] RSV PCR Not detected Not detected 06/29/2024 8:14 PM TESTER/LIFT TRUCKER [facility] Microbiology SPECIMEN FROM NASOPHARYNGEAL STRUCTURE / Unknown Collection / Unknown 06/29/2024 7:35 PM TESTER/LIFT TRUCKER 06/29/2024 7:35 PM TESTER/LIFT TRUCKER Narrative [facility] - 06/29/2024 8:14 PM TESTER/LIFT TRUCKER This nucleic acid amplification assay has been [...] - MICROBIOLOGY O RDERABLES Performing Organization Address City/[facility]/ZIP Co de Phone Number [address] [address], [facility] [phone] * BLOOD TYPE VERIFICATION (06/29/2024 7:35 PM TESTER/LIFT TRUCKER) ABO Rh A POS 06/29/2024 8:2 1 PM TESTER/LIFT TRUCKER [facility] Blood Bank BLOOD SPECIMEN / Unknown Venipuncture / Unknown 06/29/2024 7:35 PM TESTER/LIFT TRUCKER 06/29/2024 7:50 PM TESTER/LIFT TRUCKER Navneet Lizarraga MD LAB - BLOOD BAN K ORDERABLES Performing Organization Address City/[facility]/ZIP Co de Phone Number [facility] [address] [place] [address], [facility] [phone] * XR Abdomen Kub Portable (06/29/2024 7:30 PM TESTER/LIFT TRUCKER) Anatomical Region Laterality Modality Abdomen Digital Radiogra phy 06/29/2024 7:57 PM TESTER/LIFT TRUCKER Impressions 06/30/2024 8:18 AM TESTER/LIFT TRUCKER IMPRESSION: Nonobstructive bowel gas pattern. Right renal pelvocaliectasis. Report dictated by Hortensia Voss MD (radiology physician). IIsiah MD have personally reviewed and interpreted this examination/study. > Interpreting Provider: Isiah Arrington MD on 06/30/2024 8:18 AM Narrative 06/30/2024 8:18 AM TESTER/LIFT TRUCKER PROCEDURE: XR ABDOMEN KUB PORTABLE, DATE/TIME OF EXAM: 06/29/2024 7:47 PM, LOCATION [facility] INDICATION: E86.0: Dehydration ADDITIONAL CLINICAL [...] DATE/TIME OF EXAM: 06/29/2024 7:47 PM, LOCATION [facility] INDICATION: E86.0: Dehydration ADDITIONAL CLINICAL [...] Report dictated by Hortensia Voss MD (radiology physician). I, Isiah Arrington MD have personally reviewed and interpreted this examination/study. > Interpreting Provider: Isiah Arrington MD on 06/30/2024 8:18 AM Devendra Roberts MD DIAGNOSTIC IMAGING O RDERABLES * XR Chest 1Vw Portable (06/29/2024 7:19 PM TESTER/LIFT TRUCKER) Anatomical Region Laterality Modality Chest Digital Radiogra phy 06/29/2024 7:59 PM TESTER/LIFT TRUCKER Narrative 06/30/2024 8:16 AM TESTER/LIFT TRUCKER PROCEDURE: XR CHEST 1VW PORTABLE, DATE/TIME OF EXAM: 06/29/2024 7:46 PM, LOCATION [facility] INDICATION: E86.0: Dehydration ADDITIONAL CLINICAL INFORMATION: Ordering Provider Reason For Exam: cough COMPARISON: None. TECHNIQUE: Frontal radiographs of the chest. FINDINGS/IMPRESSION: There is no focal consolidation, pleural effusion, or pneumothorax. The mediastinal and cardiac contours are normal. No acute osseous abnormality is seen. Report dictated by Hortensia Voss M.D. (radiology physician). Isiah Barone MD have personally reviewed and interpreted this examination/study. > Interpreting Provider: Isiah Arrington MD on 06/30/2024 8:16 AM Procedure Note Isiah Arrington MD - 06/30/2024 PROCEDURE: XR CHEST 1VW PORTABLE, DATE/TIME OF EXAM: 06/29/2024 7:46PM, LOCATION [facility] INDICATION: E86.0: Dehydration ADDITIONAL CLINICAL INFORMATION: Ordering Provider Reason For Exam: cough COMPARISON: None. TECHNIQUE: Frontal radiographs of the chest. FINDINGS/IMPRESSION: There is no focal consolidation, pleural effusion, or pneumothorax. The mediastinal and cardiac contours are normal. No acute osseousabnormality is seen. Report dictated by Hortensia Voss M.D. (radiology physician). Isiah Barone MD have personally reviewed and interpreted this examination/study. > Interpreting Provider: Isiah Arrington MD on 06/30/2024 8:16 AM Devendra Roberts MD DIAGNOSTIC IMAGING O RDERABLES * TROPONIN-I HIGH SENSITIVE REFLEX 1HOUR (06/29/2024 6:12 PM TESTER/LIFT TRUCKER) Troponin I High Sensitive 8 <=14 ng/L 06/29/2024 7:16 PM [facility] Delta Troponin I HS 06/29/2024 7:16 PM [facility] Comment:Delta value intentio deloris not calculated. Baseline to 1 hour specimen collection interval exceeded. Blood BLOOD SPECIMEN / Unknown Venipuncture / Unknown 06/29/2024 6:12 PM TESTER/LIFT TRUCKER 06/29/2024 6:41 PM TESTER/LIFT TRUCKER Navneet Lizarraga MD LAB - CHEMISTRY ORDERABLES [facility] [address] [place] [address], [facility] [phone] * (ABNORMAL) URINALYSIS REFLEX MICROSCOPIC REFLEX CULTURE (06/29/2024 5:11 PM TESTER/LIFT TRUCKER) Color UA Yellow Straw, Yellow 06/29/2024 5:47 PM [facility] Clarity UA Slt Cloudy(A) Clear 06/29/2024 5:47 PM [facility] Specific [place] UA 1.031(H) 1.005 - 1.030 06/29/2024 5:47 PM [facility] pH UA 8.0 5.0 - 8.0 pH 06/29/2024 5:47 PM [facility] Protein UA Negative Negative 06/29/2024 5:47 PM [facility] Glucose UA Negative Negative 06/29/2024 5:47 PM [facility] Ketone UA Trace(A) Negative 06/29/2024 5:47 PM [facility] Bilirubin UA Negative Negative 06/29/2024 5:47 PM [facility] Blood UA Negative Negative 06/29/2024 5:47 PM [facility] Nitrite UA Negative Negative 06/29/2024 5:47 PM [facility] Leukocyte Esterase Negative Negative 06/29/2024 5:47 PM [facility] Urobilinogen UA Negative Negative mg/dL 06/29/2024 5:47 PM [facility] Comment UA Microscopic not indicated. 06/29/2024 5:47 PM [facility] Urine URINE SPECIMEN OBTAINED BY CLEAN CATCH PROCEDURE / Unknown Collection / Unknown 06/29/2024 5:11 PM TESTER/LIFT TRUCKER 06/29/2024 5:16 PM TESTER/LIFT TRUCKER Narrative [facility] - 06/29/2024 5:47 PM TESTER/LIFT TRUCKER Navneet Lizarraga MD LAB - URINALYSI S ORDERABLES [facility] [address] [place] [address], [facility] [phone] * PT-INR [facility] (06/29/2024 4:27 PM TESTER/LIFT TRUCKER) [facility] PT 12.9 12.1 - 14.8 Seconds 06/29/2024 5:01 PM [facility] INR 1.0 See Comment 06/29/2024 5:01 PM [facility] Comment:The suggested therap eutic range for standard coumadin (warfarin) therapy is an INR of 2.0-3.0. For high-risk patients (Mechanical Mitral Valve Prosthesis, etc.), the suggested prophylactic therapeutic range is an INR of 2.5-3.5. Blood BLOOD SPECIMEN / Unknown Venipuncture / Unknown 06/29/2024 4:27 PM TESTER/LIFT TRUCKER 06/29/2024 4:36 PM TESTER/LIFT TRUCKER Navneet Lizarraga MD LAB - COAGULATI ON ORDERABLES Performing Organization Address [facility]/ZIP Co de Phone Number [address] [address], [facility] [phone] * TROPONIN-I HIGH SENSITIVE BASELINE + 1HR (06/29/2024 4:27 PM TESTER/LIFT TRUCKER) [facility] Troponin I High Sensitive <3 <=14 ng/L 06/29/2024 5:11 PM TESTER/LIFT TRUCKER [facility] Blood BLOOD SPECIMEN / Unknown Venipuncture / Unknown 06/29/2024 4:27 PM TESTER/LIFT TRUCKER 06/29/2024 4:38 PM TESTER/LIFT TRUCKER Navneet Lizarraga MD LAB - CHEMISTRY ORDERABLES Performing Organization Address [facility]/ZIP Co de Phone Number [address] [address], [facility] [phone] * (ABNORMAL) TSH REFLEX FREE T4 (06/29/2024 4:27 PM TESTER/LIFT TRUCKER) [facility] TSH 6.035(H) 0.350 - 4.940 uIU/mL 06/29/2024 7:18 PM TESTER/LIFT TRUCKER [facility] Blood BLOOD SPECIMEN / Unknown Venipuncture / Unknown 06/29/2024 4:27 PM TESTER/LIFT TRUCKER 06/29/2024 4:38 PM TESTER/LIFT TRUCKER Navneet Lizarraga MD LAB - CHEMISTRY ORDERABLES Performing Organization Address City/[facility]/ZIP Co de Phone Number [facility] [address] [place] [address], [facility] [phone] * TYPE + SCREEN PANEL (06/29/2024 4:27 PM TESTER/LIFT TRUCKER) [facility] Antibody Screen NEG 5:23 PM [facility] ABO Rh A POS 06/29/2024 5:23 PM [facility] Blood Bank BLOOD SPECIMEN / Unknown Venipuncture / Unknown 06/29/2024 4:27 PM TESTER/LIFT TRUCKER 06/29/2024 4:46 PM TESTER/LIFT TRUCKER Navneet Lizarraga MD LAB - BLOOD BAN K ORDERABLES Performing Organization Address City/[facility]/ZIP Co de Phone Number [facility] [address] [place] [address], [facility] [phone] * (ABNORMAL) CBC W AUTO DIFFERENTIAL (06/29/2024 4:27 PM TESTER/LIFT TRUCKER) [facility] WBC 11.2(H) 4.0 - 10.7 x10E9/L 06/29/2024 4:41 PM [facility] RBC Count 3.72(L) 3.90 - 5.20 x10E12/L 06/29/2024 4:41 PM [facility] Hemoglobin 11.3(L) 11.9 - 15.8 g/dL 06/29/2024 4:41 PM [facility] Hematocrit 33.9(L) 34.8 - 46.1 % 06/29/2024 4:41 PM [facility] MCV 91.1 80.0 - 98.0 fL 06/29/2024 4:41 PM [facility] MCH 30.4 26.7 - 33.6 pg 06/29/2024 4:41 PM [facility] MCHC 33.3 31.7 - 36.3 g/dL 06/29/2024 4:41 PM [facility] RDW-CV 13.2 11.3 - 14.8 % 06/29/2024 4:41 PM [facility] Platelet Count 353 150 - 420 x10E9/L 06/29/2024 4:41 PM [facility] MPV 9.3 7.8 - 11.4 fL 06/29/2024 4:41 PM [facility] Neutrophil % 81.2(H) 41.0 - 74.0 % 06/29/2024 4:41 PM [facility] Lymphocyte % 11.0(L) 17.0 - 47.0 % 06/29/2024 4:41 PM [facility] Monocyte % 3.9 3.0 - 11.0 % 06/29/2024 4:41 PM [facility] Eosinophil % 2.2 0.0 - 7.0 % 06/29/2024 4:41 PM [facility] Basophil % 0.6 0.0 - 1.6 % 06/29/2024 4:41 PM [facility] Immature Granulocytes % 1.1(H) 0.0 - 1.0 % 06/29/2024 4:41 PM [facility] Neutrophil Absolute 9.08(H) 1.60 - 7.50 x10E9/L 06/29/2024 4:41 PM [facility] Lymphocyte Absolute 1.23 1.00 - 4.40 x10E9/L 06/29/2024 4:41 PM [facility] Monocyte Absolute 0.44 0.15 - 1.00 x10E9/L 06/29/2024 4:41 PM [facility] Eosinophil Absolute 0.25 0.00 - 0.60 x10E9/L 06/29/2024 4:41 PM [facility] Basophil Absolute 0.07 0.00 - 0.13 x10E9/L 06/29/2024 4:41 PM [facility] Blood BLOOD SPECIMEN / Unknown Venipuncture / Unknown 06/29/2024 4:27 PM TESTER/LIFT TRUCKER 06/29/2024 4:38 PM TESTER/LIFT TRUCKER Navneet Lizarraga MD LAB - HEMATOLOG Y ORDERABLES [facility] [address] [place] [address], [facility] [phone] * (ABNORMAL) COMPREHENSIVE METABOLIC PANEL (06/29/2024 4:27 PM TESTER/LIFT TRUCKER) BUN 25 7 - 26 mg/dL 06/29/2024 5:07 PM [facility] Creatinine 0.82 0.56 - 0.96 mg/dL 06/29/2024 5:07 PM [facility] Sodium 144 136 - 145 mmol/L 06/29/2024 5:07 PM [facility] Potassium 4.3 3.5 - 4.5 mmol/L 06/29/2024 5:07 PM [facility] Chloride 105 98 - 107 mmol/L 06/29/2024 5:07 PM [facility] CO2 23 22 - 29 mmol/L 06/29/2024 5:07 PM [facility] Glucose 152(H) 70 - 99 mg/dL 06/29/2024 5:07 PM [facility] Calcium 10.8(H) 8.4 - 10.2 mg/dL 06/29/2024 5:07 PM [facility] Protein Total 8.2 6.0 - 8.3 g/dL 06/29/2024 5:07 PM [facility] Albumin 4.0 3.4 - 5.0 g/dL 06/29/2024 5:07 PM [facility] Bilirubin Total 0.4 0.2 - 1.2 mg/dL 06/29/2024 5:07 PM [facility] Alkaline Phosphatase 85 40 - 150 U/L 06/29/2024 5:07 PM [facility] ALT 19 5 - 55 U/L 06/29/2024 5:07 PM [facility] AST 30 5 - 34 U/L 06/29/2024 5:07 PM [facility] Anion Gap 16 6 - 16 06/29/2024 5:07 PM [facility] BUN/Creatinine Ratio 30(H) 7 - 23 06/29/2024 5:07 PM [facility] Osmolality Calculated 305(H) 275 - 295 mOsm/kg 06/29/2024 5:07 PM [facility] Albumin/Globulin Ratio 1.0(L) 1.1 - 2.3 06/29/2024 5:07 PM [facility] eGFR by CKD-EPI 71(L) >=90 mL/min/1.7 3 m2 06/29/2024 5:07 PM [facility] Blood BLOOD SPECIMEN / Unknown Venipuncture / Unknown 06/29/2024 4:27 PM TESTER/LIFT TRUCKER 06/29/2024 4:38 PM TESTER/LIFT TRUCKER Navneet Lizarraga MD LAB - CHEMISTRY ORDERABLES Performing Organization Address City/[facility]/ZIP Co de Phone Number [address] [address], [facility] [phone] * T4 FREE (06/29/2024 4:27 PM TESTER/LIFT TRUCKER) T4 Free 1.2 0.7 - 1.5 ng/dL 06/29/2024 7:51 PM TESTER/LIFT TRUCKER [facility] Blood BLOOD SPECIMEN / Unknown Venipuncture / Unknown 06/29/2024 4:27 PM TESTER/LIFT TRUCKER 06/29/2024 4:38 PM TESTER/LIFT TRUCKER Navneet Lizarraga MD LAB - CHEMISTRY ORDERABLES [address] [address], [facility] [phone] * CT Angio Brain Neck Stroke (06/29/2024 3:52 PM TESTER/LIFT TRUCKER) Anatomical Region Laterality Modality Head Computed Tomogra phy 06/29/2024 4:26 PM TESTER/LIFT TRUCKER Impressions 06/29/2024 4:33 PM TESTER/LIFT TRUCKER IMPRESSION: 1. No acute intracranial hemorrhage. 2. No large arterial occlusions or hemodynamically significant stenoses identified in the head or neck. Viz.AI was used for large vessel occlusion detection. > Interpreting Provider: Preeti Philip MD on 06/29/2024 4:33 PM Narrative 06/29/2024 4:33 PM TESTER/LIFT TRUCKER PROCEDURE: CT ANGIO BRAIN NECK STROKE, DATE/TIME OF EXAM: 06/29/2024 3:52 PM, LOCATION [facility] INDICATION: R47.81: Slurred speech ADDITIONAL [...] STROKE, DATE/TIME OF EXAM: 43:52 PM, LOCATION [facility] INDICATION: R47.81: Slurred speech ADDITIONAL [...] CT BRAIN - Stroke (06/29/2024 3:51 PM TESTER/LIFT TRUCKER) Anatomical Region Laterality Modality Head Computed Tomogra phy 06/29/2024 3:36 PM TESTER/LIFT TRUCKER Impressions 06/29/2024 4:25 PM TESTER/LIFT TRUCKER IMPRESSION: 1.No acute intracranial hemorrhage. 2.Please note that CT is insensitive to nonhemorrhagic strokes and MRI of the brain should be considered if there is clinical concern for acute cerebral infarction. > Dictated by Brenton Dickson MD (Engineering Document Control Clerk), 06/29/2024 3:38 PM. Results were discussed with Dr. Carloz M.D. by Dr. Brenton Dickson M.D. (Engineering Document Control Clerk) at 3:36PM on 06/29/24 with readback confirmation. These findings were discussed with Dr. Philip by Dr. Dickson prior to this dictation. I, Preeti Philip MD have personally reviewed and interpreted this examination/study. > Interpreting Provider: Preeti Philip MD on 06/29/2024 4:25 PM Narrative 06/29/2024 4:25 PM TESTER/LIFT TRUCKER PROCEDURE: CT BRAIN STROKE, DATE/TIME OF EXAM: 06/29/2024 3:30 PM, LOCATION [facility] INDICATION: Code Stroke TECHNIQUE: CT [...] DATE/TIME OF EXAM: 06/29/2024 3:30 PM, LOCATION [facility] INDICATION: Code Stroke TECHNIQUE: CT [...] infarction. > Dictated by Brenton Dickson MD (Engineering Document Control Clerk), 06/29/2024 3:38 PM. Results were discussed with Dr. Carloz M.D. by Dr. Brenton Dickson M.D. (Engineering Document Control Clerk) at 3:36PM on 06/29/24 with readback confirmation. These findings were discussed with Dr. Philip by Dr. Dickson prior to this dictation. I, Preeti Philip MD have personally reviewed and interpretedthis examination/study. > Interpreting Provider: Preeti Philip MD on 06/29/2024 4:25 PM Navneet Lizarraga MD CT ORDERABLES * (ABNORMAL) CREATININE - POCT INTERFACED (06/29/2024 3:40 PM TESTER/LIFT TRUCKER) Creatinine POCT 0.62 0.30 - 1.30 mg/dL 06/29/2024 3:51 PM TESTER/LIFT TRUCKER [facility] eGFR 88(L) >=90 mL/min/1.7 3 m2 06/29/2024 3:51 PM [facility] Blood BLOOD SPECIMEN / Unknown 06/29/2024 3:40 PM TESTER/LIFT TRUCKER 06/29/2024 3:51 PM TESTER/LIFT TRUCKER Navneet Lizarraga MD LAB - POINT OF CARE ORDERABLES [facility] [address] [place] [address], [facility] [phone] * INR WHOLE BLOOD - POINT OF CARE (IP) STROKE (06/29/2024 3:39 PM TESTER/LIFT TRUCKER) INR 1.0 0.9 - 1.2 06/30/2024 5:38 AM [facility] Device [id number] 06/30/2024 5:38 AM [facility] Biochemistry Specialist ID [id number] 06/30/2024 5:38 AM [facility] Blood BLOOD SPECIMEN / Unknown 06/29/2024 3:39 PM TESTER/LIFT TRUCKER 06/30/2024 5:38 AM TESTER/LIFT TRUCKER Navneet Lizarraga MD LAB - POINT OF CARE ORDERABLES [facility] [address] [place] [id number], [facility] [phone] Care Teams Sales Representative Trainee Relationship Specialty Start Date End Date Kole Pond MD [address] [place] [address] PCP - General 01/24/09
--- OUTSIDE RECORDS SUMMARY | 2024-09-10 01:36 | XMS_ITS | Clinical Summary ---
Author Organization [facility] Address [address] [place] [address] Care Team Providers Care Head Librarian Name Role Phone Kole Pond MD Primary Care Provider [phone] Source Comments [facility],non-owned Affiliates and Associated Physician Practices is amultiple site organization consisting of ambulatory clinics and hospital sitesin [place], [place], [place] and [place]. This disclosure is being madepursuant to the Care Everywhere program and may not contain all information available regarding this patient. Last updated 18.[facility] Medications * Be aware that medications may [...] Department Care Team Description 06/29/2024 3:29 PM POLE SHAVER HELPER - 07/01/2024 4:22 PM [facility] Hospital Encounter [facility] 6S ACUTE [address] [place] [id number] Navneet Ríos MD [place], Anne C, DO [...] Comments Blood Pressure 128/74 07/01/2024 8:51 AM POLE SHAVER HELPER Pulse 68 07/01/2024 8:51 AM POLE SHAVER HELPER Temperature 36.4 C (97.5 F) 07/01/2024 8:51 AM POLE SHAVER HELPER Respiratory Rate 20 07/01/2024 8:51 AM POLE SHAVER HELPER Oxygen Saturation 99% 07/01/2024 8:51 AM POLE SHAVER HELPER Inhaled Oxygen Concentration - - Weight 62.1 kg (137 lb) 07/01/2024 8:51 AM POLE SHAVER HELPER Height 165 cm (5' 4.96 ) 07/01/2024 8:51 AM POLE SHAVER HELPER Body Mass Index 22.83 07/01/2024 8:51 AM POLE SHAVER HELPER Plan of Treatment Health Maintenance Due Date [...] CARDIAC EKG ORDER 07/02/2024 1:1 9 PM POLE SHAVER HELPER ECHO COMPLETE Routine 07/01/2024 11:07 AM POLE SHAVER HELPER Slurred speech FERRITIN Routine 06/30/2024 5:48 AM POLE SHAVER HELPER Left-sided weakness IRON + TRANSFERRIN PANEL Routine 06/30/2024 5:48 AM POLE SHAVER HELPER Left-sided weakness CALCIUM IONIZED WHOLE BLOOD AM Draw 06/30/2024 5:47 AM POLE SHAVER HELPER Left-sided weakness RETIC COUNT AM Draw 06/30/2024 5:47 AM POLE SHAVER HELPER Left-sided weakness RENAL FUNCTION PANEL AM Draw 06/30/2024 5:47 AM POLE SHAVER HELPER Left-sided weakness CULTURE BLOOD Timed 06/29/2024 9:37 PM POLE SHAVER HELPER Left-sided weakness CULTURE BLOOD Timed 06/29/2024 9:30 PM POLE SHAVER HELPER Left-sided weakness MRI BRAIN WO CONTRAST STAT 06/29/2024 8:25 PM POLE SHAVER HELPER Slurred speech BLOOD TYPE VERIFICATION STAT 06/29/2024 7:35 PM POLE SHAVER HELPER SARS-COV-2 (COVID-19) FLU A/B RSV PCR RAPID STAT 06/29/2024 7:35 PM POLE SHAVER HELPER Dehydration XR ABDOMEN KUB PORTABLE STAT 06/29/2024 7:30 PM POLE SHAVER HELPER Dehydration XR CHEST 1VW PORTABLE STAT 06/29/2024 7:19 PM POLE SHAVER HELPER Dehydration TROPONIN-I HIGH SENSITIVE REFLEX 1HOUR Timed 06/29/2024 6:12 PM POLE SHAVER HELPER URINALYSIS REFLEX MICROSCOPIC REFLEX CULTURE STAT 06/29/2024 5:11 PM POLE SHAVER HELPER TYPE + SCREEN PANEL STAT 06/29/2024 4 :27 PM POLE SHAVER HELPER T4 FREE STAT 06/29/2024 4:27 PM POLE SHAVER HELPER TSH REFLEX FREE T4 STAT 06/29/2024 4: 27 PM POLE SHAVER HELPER TROPONIN-I HIGH SENSITIVE BASELINE + 1HR STAT 06/29/2024 4:27 PM POLE SHAVER HELPER PT-INR SLH STAT 06/29/2024 4:27 PM POLE SHAVER HELPER COMPREHENSIVE METABOLIC PANEL STAT 06/29/2024 4:27 PM POLE SHAVER HELPER CBC W AUTO DIFFERENTIAL STAT 06/29/2024 4:[address] ANGIO BRAIN NECK STROKE STAT 06/29/2024 3:52 PM POLE SHAVER HELPER Slurred speech CT BRAIN STROKE STAT 06/29/2024 3:51 PM POLE SHAVER HELPER Slurred speech CREATININE - POCT INTERFACED Routine 06/29/2024 3:40 PM POLE SHAVER HELPER INR WHOLE BLOOD - POINT OF CARE (IP) STROKE Routine 06/29/2024 3:39 PM POLE SHAVER HELPER from Last 3 Months Results * CARDIAC EKG ORDER (07/02/2024 1:19 PM POLE SHAVER HELPER) Narrative 07/02/2024 1:19 PM POLE SHAVER HELPER Ordered by an unspecified provider. Scanned Document CARDIAC SERVICES ORD ERABLES * ECHO COMPLETE (07/01/2024 11:07 AM POLE SHAVER HELPER) IVSd 2D 0.816 cm [facility] I PACS LVIDd 4.34 cm [facility] I PACS LVIDs 2.611 cm [facility] I PACS LVOT diam 1.988 cm [facility] I PACS LVPWd 0.899 cm [facility] I PACS LV biplane EF 76.697 % [facility] LV A2C EF 67.732 % [facility] I PACS LV A4C EF 83.172 % [facility] I PACS LV EDV A2C 46.213 ml [facility] CV FU JI PACS LV EDV A4C 40.746 ml [facility] CV FU JI PACS LV ESV A2C 14.912 ml [facility] CV FU JI PACS LV ESV A4C 6.857 ml [facility] CV FU JI PACS LVOT pk eliecer 125.727 cm/s [facility] CV F U PACS LVOT VTI 25.596 cm [facility] CV [facility] I PACS RV-pelayo basal diam 3.178 cm [facility] CV [facility] PACS RVIDd 3.321 cm [facility] I PACS RVOT diam Doppler 1.976 cm [facility] RVOT pk eliecer 93.569 cm/s [facility] CV F U PACS RVOT VTI 16.746 cm [facility] I PACS LA size 4.134 cm [facility] I PACS LA vol BP 32.458 ml [facility] I PACS RA area 11.611 cm [facility] AV mn grad 7.873 mmHg [facility] CV FU JI PACS AV pk eliecer 181.981 cm/s [facility] I PACS AV VTI 32.725 cm [facility] I PACS MV A pk eliecer 92.185 cm/s [facility] CV F U PACS MV E pk eliecer 80.185 cm/s [facility] CV F U PACS MV E' lateral eliecer 12.932 cm/s [facility] P[facility] MV mn grad 1.971 mmHg S[facility] CV FU JI PACS MV VTI 22.617 cm [facility] CV [facility] I PACS PV pk eliecer 126.327 cm/s [facility] I PACS PV VTI 20.496 cm SSM [...] Laterality Modality Ultrasound 07/01/2024 10:1 5 AM POLE SHAVER HELPER Narrative 07/01/2024 12:21 PM POLE SHAVER HELPER Summary * The left ventricle is normal [...] 10:15 AM Patient Status: OPO Study Site: [facility] Primary Location: [facility] EStudy Info Technical Quality: Good Exam Type: ECHO COMPLETE Indications R47.81 - Slurred speech Procedure(s) * A complete 2D, color Doppler, spectral Doppler, and M-Mode transthoracic echocardiogram was performed. Staff Referring Physician: Devendra Roberts Ordering Provider: Devendra Roberts Attending Physician: Devendra Roberts Patient Representative: [place] Manzo Left Ventricle The left ventricle [...] 10:15 AM Patient Status: OPO Study Site: [facility] Primary Location: [facility] Info Technical Quality: Good Exam Type: ECHO COMPLETE Indications R47.81 - Slurred speech Procedure(s) * A complete 2D, color Doppler, spectral Doppler, and M-Modetransthoracic echocardiogram was performed. Staff Referring Physician: Devendra Roberts Ordering Provider: Devendra Roberts Attending Physician: Devendra Roberts Patient Representative: [place] Manzo Left Ventricle The left ventricle [...] IRON + TRANSFERRIN PANEL (06/30/2024 5:48 AM POLE SHAVER HELPER) Iron 70 40 - 150 ug/dL 06/30/2024 6:53 AM [facility] Transferrin 173(L) 174 - 382 mg/dL 06/30/2024 6:53 AM [facility] Transferrin Saturation % 32 16 - 50 % 06/30/2024 6:53 AM [facility] TIBC Calculated 216(L) 240 - 450 ug/dL 06/30/2024 6:53 AM [facility] Blood BLOOD SPECIMEN / Unknown Lab Venipuncture / Unknown 06/30/2024 5:48 AM POLE SHAVER HELPER 06/30/2024 5:52 AM POLE SHAVER HELPER Devendra Roberts MD LAB - CHEMISTRY DIANA COOPER Performing Organization Address [facility]/ZIP Co de Phone Number [address] [address], [facility] [phone] * (ABNORMAL) FERRITIN (06/30/2024 5:48 AM POLE SHAVER HELPER) Ferritin 350(H) 13 - 204 ng/mL 06/30/2024 7:06 AM POLE SHAVER HELPER [facility] Blood BLOOD SPECIMEN / Unknown Lab Venipuncture / Unknown 06/30/2024 5:48 AM POLE SHAVER HELPER 06/30/2024 5:52 AM POLE SHAVER HELPER Devendra Roberts MD LAB - CHEMISTRY DIANA COOPER [address] [place] [address], [facility] [phone] * (ABNORMAL) CALCIUM IONIZED WHOLE BLOOD (06/30/2024 5:47 AM POLE SHAVER HELPER) Calcium Ionized 1.35 mmol/L 06/30/2024 5:55 AM [facility] pH 7.47(H) 7.35 - 7.45 pH 06/30/2024 5:55 AM [facility] Ionized Calcium pH Adjusted 1.39(H) 1.19 - 1.34 mmol/L 06/30/2024 5:55 AM [facility] Blood BLOOD SPECIMEN / Unknown Lab Venipuncture / Unknown 06/30/2024 5:47 AM POLE SHAVER HELPER 06/30/2024 5:52 AM [facility] Devendra Roberts MD LAB - CHEMISTRY DIANA COOPER [address] [address], [facility] [phone] * RETIC COUNT (06/30/2024 5:47 AM POLE SHAVER HELPER) Reticulocyte Percent 2.37 0.50 - 2.40 % 06/30/2024 6:32 AM [facility] Reticulocyte Absolute 0.0751 0.0200 - 0.1100 x10E6/uL 06/30/2024 6:32 AM [facility] Ret-HE 34.6 29.0 - 37.9 pg 06/30/2024 6:32 AM [facility] Immature Reticulocyte Fraction 12.5 1.8 - 15.2 % 06/30/2024 6:32 AM [facility] Blood BLOOD SPECIMEN / Unknown Lab Venipuncture / Unknown 06/30/2024 5:47 AM POLE SHAVER HELPER 06/30/2024 6:20 AM [facility] Devendra Roberts MD LAB - HEMATOLOGY ORD RAFA [address] [address], [facility] [phone] * (ABNORMAL) RENAL FUNCTION PANEL (06/30/2024 5:47 AM POLE SHAVER HELPER) BUN 19 7 - 26 mg/dL 06/30/2024 6:48 AM [facility] Creatinine 0.80 0.56 - 0.96 mg/dL 06/30/2024 6:48 AM [facility] Sodium 143 136 - 145 mmol/L 06/30/2024 6:48 AM [facility] Potassium 3.9 3.5 - 4.5 mmol/L 06/30/2024 6:48 AM [facility] Chloride 110(H) 98 - 107 mmol/L 06/30/2024 6:48 AM [facility] CO2 24 22 - 29 mmol/L 06/30/2024 6:48 AM [facility] Glucose 94 70 - 99 mg/dL 06/30/2024 6:48 AM [facility] Albumin 2.9(L) 3.4 - 5.0 g/dL 06/30/2024 6:48 AM [facility] Calcium 9.8 8.4 - 10.2 mg/dL 06/30/2024 6:48 AM [facility] Phosphorus 4.2 2.9 - 5.1 mg/dL 06/30/2024 6:48 AM [facility] Anion Gap 9 6 - 16 06/30/2024 6:48 AM [facility] BUN/Creatinine Ratio 24(H) 7 - 23 06/30/2024 6:48 AM [facility] Osmolality Calculated 298(H) 275 - 295 mOsm/kg 06/30/2024 6:48 AM [facility] eGFR by CKD-EPI 73(L) >=90 mL/min/1.7 3 m2 06/30/2024 6:48 AM [facility] Blood BLOOD SPECIMEN / Unknown Lab Venipuncture / Unknown 06/30/2024 5:47 AM POLE SHAVER HELPER 06/30/2024 6:21 AM [facility] Devendra Roberts MD LAB - CHEMISTRY DIANA Mitchell Organization Address City/State/ZIP Co de Phone Number [facility] [address] [place], [place] [id number], [facility] [phone] * CULTURE BLOOD (06/29/2024 9:37 PM POLE SHAVER HELPER) Only the most recent of2 resultswithin the time period is included. Culture No growth day 5 GERTRUDE 07/05/2024 1:30 AM POLE SHAVER HELPER [facility] MICROBIOLOGY Blood PERIPHERAL BLOOD / Unknown Lab Venipuncture / Unknown 06/29/2024 9:37 PM POLE SHAVER HELPER 06/29/2024 9:41 PM POLE SHAVER HELPER Devendra Roberts MD LAB - MICROBIOLOGY O RDERABLES [facility] MICROBIOLOGY [address] [place] [address], [facility] [phone] * MRI Brain Wo Contrast (06/29/2024 8:25 PM POLE SHAVER HELPER) Anatomical Region Laterality Modality Head Magnetic Resonan ce 07/02/2024 10:1 1 AM POLE SHAVER HELPER Impressions 07/02/2024 10:31 AM POLE SHAVER HELPER IMPRESSION: 1. No evidence of restricted diffusion to suggest an acute infarction. > Interpreting Provider: Preeti Philip MD on 07/02/2024 10:31 AM Narrative 07/02/2024 10:31 AM POLE SHAVER HELPER PROCEDURE: MRI BRAIN WO CONTRAST, DATE/TIME OF EXAM: 06/29/2024 8:25 PM, LOCATION [facility] INDICATION: R47.81: Slurred speech ADDITIONAL CLINICAL INFORMATION: [...] CONTRAST, DATE/TIME OF EXAM: 06/29/2024 8:25PM, LOCATION [facility] INDICATION: R47.81: Slurred speech ADDITIONAL CLINICAL INFORMATION: [...] A/B RSV PCR RAPID (06/29/2024 7:35 PM POLE SHAVER HELPER) COVID-19 PCR Not detected Not detected 06/29/20 8:14 PM POLE SHAVER HELPER [facility] Influenza A PCR Not detected Not detected 06/29/2024 8:14 PM POLE SHAVER HELPER [facility] Influenza B PCR Not detected Not detected 06/29/2024 8:14 PM POLE SHAVER HELPER [facility] RSV PCR Not detected Not detected 06/29/2024 8:14 PM POLE SHAVER HELPER [facility] Microbiology SPECIMEN FROM NASOPHARYNGEAL STRUCTURE / Unknown Collection / Unknown 06/29/2024 7:35 PM POLE SHAVER HELPER 06/29/2024 7:35 PM POLE SHAVER HELPER [facility] - 06/29/2024 8:14 PM POLE SHAVER HELPER This nucleic acid amplification assay has been [...] MICROBIOLOGY [facility] [address] [place] [address], [facility] [phone] * BLOOD TYPE VERIFICATION (06/29/2024 7:35 PM POLE SHAVER HELPER) ABO Rh A POS 06/29/2024 8:2 1 PM POLE SHAVER HELPER [facility] B[facility] LAB Blood Bank BLOOD SPECIMEN / Unknown Venipuncture / Unknown 06/29/2024 7:35 PM POLE SHAVER HELPER 06/29/2024 7:50 PM POLE SHAVER HELPER Navneet Lizarraga MD LAB - BLOOD BAN K ORDERABLES [facility] [address] [place] [address], [facility] [phone] * XR Abdomen Kub Portable (06/29/2024 7:30 PM POLE SHAVER HELPER) Anatomical Region Laterality Modality Abdomen Digital Radiogra phy 06/29/2024 7:57 PM POLE SHAVER HELPER Impressions 06/30/2024 8:18 AM POLE SHAVER HELPER IMPRESSION: Nonobstructive bowel gas pattern. Right renal pelvocaliectasis. Report dictated by Hortensia Voss MD (orthodontist vice president). IIsiah MD have personally reviewed and interpreted this examination/study. > Interpreting Provider: Isiah Arrington MD on 06/30/2024 8:18 AM Narrative 06/30/2024 8:18 AM POLE SHAVER HELPER PROCEDURE: XR ABDOMEN KUB PORTABLE, DATE/TIME OF EXAM: 06/29/2024 7:47 PM, LOCATION [facility] INDICATION: E86.0: Dehydration ADDITIONAL CLINICAL INFORMATION: Ordering [...] DATE/TIME OF EXAM: 06/29/2024 7:47 PM, LOCATION [facility] INDICATION: E86.0: Dehydration ADDITIONAL CLINICAL INFORMATION: Ordering [...] pelvocaliectasis. Report dictated by Hortensia Voss MD (orthodontist vice president). Isiah Barone MD have personally reviewed and interpreted this examination/study. > Interpreting Provider: Isiah Arrington MD on 06/30/2024 8:18 AM Devendra Roberts MD DIAGNOSTIC IMAGING O RDERABLES * XR Chest 1Vw Portable (06/29/2024 7:19 PM POLE SHAVER HELPER) Anatomical Region Laterality Modality Chest Digital Radiogra phy 06/29/2024 7:59 PM POLE SHAVER HELPER Narrative 06/30/2024 8:16 AM POLE SHAVER HELPER PROCEDURE: XR CHEST 1VW PORTABLE, DATE/TIME OF EXAM: 06/29/2024 7:46 PM, LOCATION [facility] INDICATION: E86.0: Dehydration ADDITIONAL CLINICAL INFORMATION: Ordering Provider Reason For Exam: cough COMPARISON: None. TECHNIQUE: Frontal radiographs of the chest. FINDINGS/IMPRESSION: There is no focal consolidation, pleural effusion, or pneumothorax. The mediastinal and cardiac contours are normal. No acute osseous abnormality is seen. Report dictated by Hortensia Voss M.D. (orthodontist vice president). Isiah Barone MD have personally reviewed and interpreted this examination/study. > Interpreting Provider: Isiah Arrington MD on 06/30/2024 8:16 AM Procedure Note Isiah Arrington MD - 06/30/2024 PROCEDURE: XR CHEST 1VW PORTABLE, DATE/TIME OF EXAM: 06/29/2024 7:46PM, LOCATION [facility] INDICATION: E86.0: Dehydration ADDITIONAL CLINICAL INFORMATION: Ordering Provider Reason For Exam: cough COMPARISON: None. TECHNIQUE: Frontal radiographs of the chest. FINDINGS/IMPRESSION: There is no focal consolidation, pleural effusion, or pneumothorax. The mediastinal and cardiac contours are normal. No acute osseousabnormality is seen. Report dictated by Hortensia Voss M.D. (orthodontist vice president). I, Isiah Arrington MD have personally reviewed and interpreted this examination/study. > Interpreting Provider: Isiah Arrington MD on 06/30/2024 8:16 AM Devendra Roberts MD DIAGNOSTIC IMAGING O RDERABLES * TROPONIN-I HIGH SENSITIVE REFLEX 1HOUR (06/29/2024 6:12 PM POLE SHAVER HELPER) Troponin I High Sensitive 8 <=14 ng/L 06/29/2024 7:16 PM [facility] Delta Troponin I HS 06/29/2024 7:16 PM [facility] Comment:Delta value intentio deloris not calculated. Baseline to 1 hour specimen collection interval exceeded. Blood BLOOD SPECIMEN / Unknown Venipuncture / Unknown 06/29/2024 6:12 PM POLE SHAVER HELPER 06/29/2024 6:41 PM POLE SHAVER HELPER Navneet Lizarraga MD LAB - CHEMISTRY ORDERABLES Performing Organization Address City/State/[facility] Co de Phone Number [facility] [address] [place] [phone], [facility] [phone] * (ABNORMAL) URINALYSIS REFLEX MICROSCOPIC REFLEX CULTURE (06/29/2024 5:11 PM POLE SHAVER HELPER) Color UA Yellow Straw, Yellow 06/29/2024 5:47 PM [facility] Clarity UA Slt Cloudy(A) Clear 06/29/2024 5:47 PM [facility] Specific [place] UA 1.031(H) 1.005 - 1.030 06/29/2024 5:47 PM [facility] pH UA 8.0 5.0 - 8.0 pH 06/29/2024 5:47 PM [facility] Protein UA Negative Negative 06/29/2024 5:47 PM [facility] Glucose UA Negative Negative 06/29/2024 5:47 PM [facility] Ketone UA Trace(A) Negative 06/29/2024 5:47 PM [facility] Bilirubin UA Negative Negative 06/29/2024 5:47 PM [facility] Blood UA Negative Negative 06/29/2024 5:47 PM [facility] Nitrite UA Negative Negative 06/29/2024 5:47 PM [facility] Leukocyte Esterase Negative Negative 06/29/2024 5:47 PM [facility] Urobilinogen UA Negative Negative mg/dL 06/29/2024 5:47 PM [facility] Comment UA Microscopic not indicated. 06/29/2024 5:47 PM [facility] Urine URINE SPECIMEN OBTAINED BY CLEAN CATCH PROCEDURE / Unknown Collection / Unknown 06/29/2024 5:11 PM POLE SHAVER HELPER 06/29/2024 5:16 PM [facility] - 06/29/2024 5:47 PM [facility] Navneet Lizarraga MD LAB - URINALYSI S ORDERABLES Performing Organization Address [facility]/State/[facility] Co de Phone Number [facility] [address] [place] [phone], [facility] [phone] * PT-INR [facility] (06/29/2024 4:27 PM POLE SHAVER HELPER) PT 12.9 12.1 - 14.8 Seconds 06/29/2024 5:01 PM [facility] INR 1.0 See Comment 06/29/2024 5:01 PM [facility] Comment:The suggested therap eutic range for standard coumadin (warfarin) therapy is an INR of 2.0-3.0. For high-risk patients (Mechanical Mitral Valve Prosthesis, etc.), the suggested prophylactic therapeutic range is an INR of 2.5-3.5. Blood BLOOD SPECIMEN / Unknown Venipuncture / Unknown 06/29/2024 4:27 PM POLE SHAVER HELPER 06/29/2024 4:36 PM POLE SHAVER HELPER Navneet Lizarraga MD LAB - COAGULATI ON ORDERABLES Performing Organization Address City/[facility]/ZIP Co de Phone Number [address] [address], [facility] [phone] * TROPONIN-I HIGH SENSITIVE BASELINE + 1HR (06/29/2024 4:27 PM POLE SHAVER HELPER) Pathologist [facility] Troponin I High Sensitive <3 <=14 ng/L 06/29/2024 5:11 PM POLE SHAVER HELPER [facility] Blood BLOOD SPECIMEN / Unknown Venipuncture / Unknown 06/29/2024 4:27 PM POLE SHAVER HELPER 06/29/2024 4:38 PM POLE SHAVER HELPER Navneet Lizarraga MD LAB - CHEMISTRY ORDERABLES Performing Organization Address [facility] Co de Phone Number [address] [address], [facility] [phone] * (ABNORMAL) TSH REFLEX FREE T4 (06/29/2024 4:27 PM POLE SHAVER HELPER) Pathologist [facility] TSH 6.035(H) 0.350 - 4.940 uIU/mL 06/29/2024 7:18 PM POLE SHAVER HELPER [facility] Blood BLOOD SPECIMEN / Unknown Venipuncture / Unknown 06/29/2024 4:27 PM POLE SHAVER HELPER 06/29/2024 4:38 PM POLE SHAVER HELPER Navneet Lizarraga MD LAB - CHEMISTRY ORDERABLES Performing Organization Address City/[facility]/ZIP Co de Phone Number [address] [address], [employer] [phone] * TYPE + SCREEN PANEL (06/29/2024 4:27 PM POLE SHAVER HELPER) Pathologist [facility] Antibody Screen NEG 5:23 PM POLE SHAVER HELPER [facility] ABO Rh A POS 06/29/2024 5:23 PM POLE SHAVER HELPER [facility] Blood Bank BLOOD SPECIMEN / Unknown Venipuncture / Unknown 06/29/2024 4:27 PM POLE SHAVER HELPER 06/29/2024 4:46 PM POLE SHAVER HELPER Navneet Lizarraga MD LAB - BLOOD BAN K ORDERABLES [facility] [address] [place] [address], [facility] [phone] * (ABNORMAL) CBC W AUTO DIFFERENTIAL (06/29/2024 4:27 PM POLE SHAVER HELPER) WBC 11.2(H) 4.0 - 10.7 x10E9/L 06/29/2024 4:41 PM [facility] RBC Count 3.72(L) 3.90 - 5.20 x10E12/L 06/29/2024 4:41 PM [facility] Hemoglobin 11.3(L) 11.9 - 15.8 g/dL 06/29/2024 4:41 PM [facility] Hematocrit 33.9(L) 34.8 - 46.1 % 06/29/2024 4:41 PM [facility] MCV 91.1 80.0 - 98.0 fL 06/29/2024 4:41 PM [facility] MCH 30.4 26.7 - 33.6 pg 06/29/2024 4:41 PM [facility] MCHC 33.3 31.7 - 36.3 g/dL 06/29/2024 4:41 PM [facility] RDW-CV 13.2 11.3 - 14.8 % 06/29/2024 4:41 PM [facility] Platelet Count 353 150 - 420 x10E9/L 06/29/2024 4:41 PM [facility] MPV 9.3 7.8 - 11.4 fL 06/29/2024 4:41 PM [facility] Neutrophil % 81.2(H) 41.0 - 74.0 % 06/29/2024 4:41 PM [facility] Lymphocyte % 11.0(L) 17.0 - 47.0 % 06/29/2024 4:41 PM [facility] Monocyte % 3.9 3.0 - 11.0 % 06/29/2024 4:41 PM [facility] Eosinophil % 2.2 0.0 - 7.0 % 06/29/2024 4:41 PM [facility] Basophil % 0.6 0.0 - 1.6 % 06/29/2024 4:41 PM [facility] Immature Granulocytes % 1.1(H) 0.0 - 1.0 % 06/29/2024 4:41 PM [facility] Neutrophil Absolute 9.08(H) 1.60 - 7.50 x10E9/L 06/29/2024 4:41 PM [facility] Lymphocyte Absolute 1.23 1.00 - 4.40 x10E9/L 06/29/2024 4:41 PM [facility] Monocyte Absolute 0.44 0.15 - 1.00 x10E9/L 06/29/2024 4:41 PM [facility] Eosinophil Absolute 0.25 0.00 - 0.60 x10E9/L 06/29/2024 4:41 PM [facility] Basophil Absolute 0.07 0.00 - 0.13 x10E9/L 06/29/2024 4:41 PM [facility] Blood BLOOD SPECIMEN / Unknown Venipuncture / Unknown 06/29/2024 4:27 PM [facility] 06/29/2024 4:38 PM [facility] Navneet Lizarraga MD LAB - HEMATOLOG Y ORDERABLES Performing Organization Address City/[facility] Co de Phone Number [facility] [address] [place] [phone], [facility] [phone] * (ABNORMAL) COMPREHENSIVE METABOLIC PANEL (06/29/2024 4:27 PM [facility] [facility]) BUN 25 7 - 26 mg/dL 06/29/2024 5:07 PM [facility] Creatinine 0.82 0.56 - 0.96 mg/dL 06/29/2024 5:07 PM [facility] Sodium 144 136 - 145 mmol/L 06/29/2024 5:07 PM [facility] Potassium 4.3 3.5 - 4.5 mmol/L 06/29/2024 5:07 PM [facility] Chloride 105 98 - 107 mmol/L 06/29/2024 5:07 PM [facility] CO2 23 22 - 29 mmol/L 06/29/2024 5:07 PM [facility] Glucose 152(H) 70 - 99 mg/dL 06/29/2024 5:07 PM [facility] Calcium 10.8(H) 8.4 - 10.2 mg/dL 06/29/2024 5:07 PM [facility] Protein Total 8.2 6.0 - 8.3 g/dL 06/29/2024 5:07 PM [facility] Albumin 4.0 3.4 - 5.0 g/dL 06/29/2024 5:07 PM [facility] Bilirubin Total 0.4 0.2 - 1.2 mg/dL 06/29/2024 5:07 PM [facility] Alkaline Phosphatase 85 40 - 150 U/L 06/29/2024 5:07 PM [facility] ALT 19 5 - 55 U/L 06/29/2024 5:07 PM [facility] AST 30 5 - 34 U/L 06/29/2024 5:07 PM [facility] Anion [place] 16 6 - 16 06/29/2024 5:07 PM [facility] BUN/Creatinine Ratio 30(H) 7 - 23 06/29/2024 5:07 PM [facility] Osmolality Calculated 305(H) 275 - 295 mOsm/kg 06/29/2024 5:07 PM [facility] Albumin/Globulin Ratio 1.0(L) 1.1 - 2.3 06/29/2024 5:07 PM [facility] eGFR by CKD-EPI 71(L) >=90 mL/min/1.7 3 m2 06/29/2024 5:07 PM [facility] Blood BLOOD SPECIMEN / Unknown Venipuncture / Unknown 06/29/2024 4:27 PM POLE SHAVER HELPER 06/29/2024 4:38 PM [facility] Navneet Lizarraga MD LAB - CHEMISTRY ORDERABLES [facility] [address] [place] [address], [facility] [phone] * T4 FREE (06/29/2024 4:27 PM POLE SHAVER HELPER) T4 Free 1.2 0.7 - 1.5 ng/dL 06/29/2024 7:51 PM POLE SHAVER HELPER [facility] Blood BLOOD SPECIMEN / Unknown Venipuncture / Unknown 06/29/2024 4:27 PM POLE SHAVER HELPER 06/29/2024 4:38 PM POLE SHAVER HELPER Navneet Lizarraga MD LAB - CHEMISTRY ORDERABLES [facility] [address] [place] [address], [facility] [phone] * CT Angio Brain Neck Stroke (06/29/2024 3:52 PM POLE SHAVER HELPER) Anatomical Region Laterality Modality Head Computed Tomogra phy 06/29/2024 4:26 PM POLE SHAVER HELPER Impressions 06/29/2024 4:33 PM POLE SHAVER HELPER IMPRESSION: 1. No acute intracranial hemorrhage. 2. No large arterial occlusions or hemodynamically significant stenoses identified in the head or neck. Viz.AI was used for large vessel occlusion detection. > Interpreting Provider: Preeti Philip MD on 06/29/2024 4:33 PM Narrative 06/29/2024 4:33 PM POLE SHAVER HELPER PROCEDURE: CT ANGIO BRAIN NECK STROKE, DATE/TIME OF EXAM: 06/29/2024 3:52 PM, LOCATION [facility] INDICATION: R47.81: Slurred speech ADDITIONAL CLINICAL INFORMATION: [...] STROKE, DATE/TIME OF EXAM: 43:52 PM, LOCATION [facility] INDICATION: R47.81: Slurred speech ADDITIONAL CLINICAL INFORMATION: [...] CT BRAIN - Stroke (06/29/2024 3:51 PM POLE SHAVER HELPER) Anatomical Region Laterality Modality Head Computed Tomogra phy 06/29/2024 3:36 PM POLE SHAVER HELPER Impressions 06/29/2024 4:25 PM POLE SHAVER HELPER IMPRESSION: 1.No acute intracranial hemorrhage. 2.Please note that CT is insensitive to nonhemorrhagic strokes and MRI of the brain should be considered if there is clinical concern for acute cerebral infarction. > Dictated by Brenton Dickson MD (Manager Strategy), 06/29/2024 3:38 PM. Results were discussed with Dr. Carloz M.D. by Dr. Brenton Dickson M.D. (Manager Strategy) at 3:36PM on 06/29/24 with readback confirmation. These findings were discussed with Dr. Philip by Dr. Dickson prior to this dictation. IPreeti MD have personally reviewed and interpreted this examination/study. > Interpreting Provider: Preeti Philip MD on 06/29/2024 4:25 PM Narrative 06/29/2024 4:25 PM POLE SHAVER HELPER PROCEDURE: CT BRAIN STROKE, DATE/TIME OF EXAM: 06/29/2024 3:30 PM, [facility] INDICATION: Code Stroke TECHNIQUE: CT of the [...] DATE/TIME OF EXAM: 06/29/2024 3:30 PM, LOCATION [facility] INDICATION: Code Stroke TECHNIQUE: CT of the [...] infarction. > Dictated by Brenton Dickson MD (Manager Strategy), 06/29/2024 3:38 PM. Results were discussed with Dr. Carloz M.D. by Dr. Brenton Dickson M.D. (Manager Strategy) at 3:36PM on 06/29/24 with readback confirmation. These findings were discussed with Dr. Philip by Dr. Dickson prior to this dictation. I, Preeti Philip MD have personally reviewed and interpretedthis examination/study. > Interpreting Provider: Preeti Philip MD on 06/29/2024 4:25 PM Navneet Lizarraga MD CT ORDERABLES * (ABNORMAL) CREATININE - POCT INTERFACED (06/29/2024 3:40 PM POLE SHAVER HELPER) [facility] Creatinine POCT 0.62 0.30 - 1.30 mg/dL 06/29/2024 3:51 PM POLE SHAVER HELPER [facility] eGFR 88(L) >=90 mL/min/1.7 3 m2 06/29/2024 3:51 PM POLE SHAVER HELPER [facility] Blood BLOOD SPECIMEN / Unknown 06/29/2024 3:40 PM POLE SHAVER HELPER 06/29/2024 3:51 PM POLE SHAVER HELPER Navneet Lizarraga MD LAB - POINT OF CARE ORDERABLES [facility] [address] [place] [address], [facility] [phone] * INR WHOLE BLOOD - POINT OF CARE (IP) STROKE (06/29/2024 3:39 PM POLE SHAVER HELPER) INR 1.0 0.9 - 1.2 06/30/2024 5:38 AM POLE SHAVER HELPER [facility] Device [id number] 06/30/2024 5:38 AM [facility] Paint And Table Edger ID [id number] 06/30/2024 5:38 AM POLE SHAVER HELPER [facility] Blood BLOOD SPECIMEN / Unknown 06/29/2024 3:39 PM POLE SHAVER HELPER 06/30/2024 5:38 AM POLE SHAVER HELPER Navneet Lizarraga MD LAB - POINT OF CARE ORDERABLES [facility] [address] [place] [address], [facility] [phone] from Last 3 Months Advance Directives * Full Code (Latest Code Status on File) Date Activated Date Inactivated Comments 06/29/2024 6:25 PM 07/01/2024 5:22 PM Care Teams Head Librarian Relationship Specialty Start Date End Date Kole Pond MD [address] [facility] [address] [place] [address] PCP - General 01/24/09
--- OUTSIDE RECORDS SUMMARY | 2024-09-10 01:36 | XMS_ITS | Clinical Summary ---
Author Organization [facility] Address [address] [address] Care Team Providers Care Stem Cutter Name Role Phone Sacha Dash MD Primary [...] effects. Assessment & Plan (07/06/2021 3:16 PM REAL ESTATE SERVICES COORDINATOR): Increase donepezil to 10 mg daily. Warned of side effects and call back if any develop. Laboratory workup an MRI unremarkable. Assessment & Plan (04/13/2021 6:40 PM CDT): Probably represents Alzheimer's dementia given family history and her [facility] MS score . Laboratory workup and MRI [...] today. Assessment & Plan (07/06/2021 3:16 PM REAL ESTATE SERVICES COORDINATOR): Use trazodone as needed. Assessment & Plan [...] atorvastatin Assessment & Plan (07/06/2021 3:16 PM REAL ESTATE SERVICES COORDINATOR): Continue her atorvastatin check lipids and LFTs before next visit. Assessment & Plan (04/13/2021 6:38 PM CDT): LDL well controlled on her atorvastatin. Assessment & Plan (10/12/2020 11:17 AM CDT): LDL better controlled on her atorvastatin. Assessment & Plan (06/20/2020 5:54 PM REAL ESTATE SERVICES COORDINATOR): Atorvastatin resent to her pharmacy and will [...] 2023. Assessment & Plan (07/06/2021 3:16 PM REAL ESTATE SERVICES COORDINATOR): Continue calcium, vitamin-D, weight-bearing exercise, Prolia and repeat bone density scan every 2 years. Assessment & Plan (04/13/2021 6:38 PM CDT): Calcium, vitamin-D, weight-bearing exercise, Prolia and repeat bone density scan approximately every 2 years. Assessment & Plan (10/12/2020 11:17 AM CDT): Continue calcium, vitamin-D, weight-bearing exercise, Prolia and repeat bone density scan March 2021. Assessment & Plan (06/20/2020 5:53 PM REAL ESTATE SERVICES COORDINATOR): Continue calcium, vitamin-D, weight-bearing exercise, Prolia and [...] this exam were completed as outlined by [facility]. Environmental allergies 04/26/2018 Assessment & Plan (05/03/2018 2:52 PM CDT): Will refer to allergy for full evaluatipn Assessment & Plan (04/26/2018 2:59 PM CDT): Start Zyrtec and Flonase. Irrigate sinuses with saline. Patient verbalizes understanding. Vasovagal syncope 06/15/2017 Assessment & Plan (08/11/2017 2:07 PM REAL ESTATE SERVICES COORDINATOR): She has had an extensive workup so far however has been told that she needs bilateral carotids and MRI brain by Ophthalmology Assessment & Plan (06/29/2017 4:18 PM REAL ESTATE SERVICES COORDINATOR): History and previous cardiac evaluation is most [...] syncope. Assessment & Plan (06/15/2017 11:55 AM REAL ESTATE SERVICES COORDINATOR): States she passed out a couple times [...] mg Assessment & Plan (05/25/2017 9:09 AM REAL ESTATE SERVICES COORDINATOR): states she may feel a little better Assessment & Plan (04/13/2017 11:20 AM CDT): She definitely has some evidence of depression at this point we will start low- dose Zoloft see her back in 4-5 weeks I will also begin with lab work today Seasonal allergic rhinitis due to pollen 017 Assessment & Plan (07/06/2021 3:16 PM REAL ESTATE SERVICES COORDINATOR): Continue her azelastine and Zyrtec and follow-up with her lead trainer as they direct. Assessment & Plan (04/13/2021 6:39 PM CDT): Restart Zyrtec and try azelastine. Assessment & Plan (06/20/2020 5:53 PM REAL ESTATE SERVICES COORDINATOR): Continue Zyrtec as needed. Assessment & Plan [...] 04/06/2019 Assessment & Plan (06/29/2017 4:16 PM REAL ESTATE SERVICES COORDINATOR): Very atypical and much more suspicious of gastroesophageal reflux. Supporting a noncardiac diagnosis is the favorable findings on her stress test and echocardiogram. Could consider an [id number] H2 damien or proton pump inhibitor. Would [...] reviewed her extensive workup she has seen [facility] Ophthalmology with negative workup, she then saw Neurology with negative workup, we recently check labs which are negative as well at this point she believes this is may be mood related and appears to be somewhat improving Assessment & Plan (03/07/2018 10:39 AM CDT): Our major discussion today was about her blurred vision. We have Center for full evaluation with [facility] including full ophthalmological evaluation. Ophthalmology does not [...] well Assessment & Plan (08/11/2017 2:08 PM REAL ESTATE SERVICES COORDINATOR): She is under an extensive evaluation ophthalmological E she had a test this morning which we are waiting on results I will order carotid an MRI Assessment & Plan (05/25/2017 9:07 AM REAL ESTATE SERVICES COORDINATOR): states it comes on and off , has seen Dr RAJAN at [facility], very unclear how she is describing it states she was on vacation and had no blurred vision Will refer for second opinion to [facility] ophtho Assessment & Plan (04/13/2017 11:19 AM [...] Care Team Description 07/05/2024 MARK IP Outreach [facility] Care Organization [address] [place] [id number] Shruthi Chacko LPN from Last 3 Months [...] on file Legal Sex Female 1:44 PM REAL ESTATE SERVICES COORDINATOR Gender Identity Not on file Sexual Orientation [...] Most Recently Relevant to Health Maintenance Insurance [facility] MEDICARE [facility] MEDICARE Care Teams Stem Cutter Relationship Specialty Start Date End Date Sacha Dash MD [address] [place] [address] PCP - General Internal Medicine 03/30/24
--- OUTSIDE RECORDS SUMMARY | 2024-09-10 01:36 | XMS_ITS | Encounter Summary ---
Author Organization [facility] Address [address] [place] [address] Phone Care Team Providers Care Technical Fellow Name Role Phone Zak Thrasher MD Primary Care Provider [phone] Sacha Dash MD Primary Care Provider + Shruthi Chacko LPN Unavailable [phone] Encounter Details Date Type Department Care Team [...] on file Legal Sex Female 1:44 PM LOKIE DRIVER Gender Identity Not on file Sexual Orientation [...] on filedocumented in this encounter Care Teams Technical Fellow Relationship Specialty Start Date End Date Zak Thrasher MD PCP - General Internal Medicine 02/28/20 03/29/24 Sacha Dash MD [address] [place] [address] PCP - General Internal Medicine 03/30/24 Shruthi Chacko LPN [address] [place] [address] [address] [place] [address] Public Relations Senior Associate 07/05/24 07/05/24 documented as of this encounter
--- OUTSIDE RECORDS SUMMARY | 2024-09-10 01:36 | XMS_ITS | Referral Summary ---
Author Organization [facility] Address [address] [place] [address] Care Team Providers Care Weaver [place] Name Role Phone Kole Pond MD Primary Care Provider [phone] Source Comments [facility],non-owned Affiliates and Associated Physician Practices is amultiple site organization consisting of ambulatory clinics and hospital sitesin [place], [place], [place] and [place]. This disclosure is being madepursuant to the Care Everywhere program and may not contain all information available regarding this patient. Last updated 18.[facility] Encounters Date Type Department Care Team Description 06/29/2024 3:29 PM VISUAL MERCHANDISE MANAGER - 07/01/2024 4:22 PM [facility] Hospital Encounter [facility] 6S ACUTE [address] [place] [address] Navneet Ríos MD [place], Anne C, DO [...] Comments Blood Pressure 128/74 07/01/2024 8:51 AM VISUAL MERCHANDISE MANAGER Pulse 68 07/01/2024 8:51 AM VISUAL MERCHANDISE MANAGER Temperature 36.4 C (97.5 F) 07/01/2024 8:51 AM VISUAL MERCHANDISE MANAGER Respiratory Rate 20 07/01/2024 8:51 AM VISUAL MERCHANDISE MANAGER Oxygen Saturation 99% 07/01/2024 8:51 AM VISUAL MERCHANDISE MANAGER Inhaled Oxygen Concentration - - Weight 62.1 kg (137 lb) 07/01/2024 8:51 AM VISUAL MERCHANDISE MANAGER Height 165 cm (5' 4.96 ) 07/01/2024 8:51 AM VISUAL MERCHANDISE MANAGER Body Mass Index 22.83 07/01/2024 8:51 AM VISUAL MERCHANDISE MANAGER Plan of Treatment Not on file Procedures Procedure Name Priority Date/Time Associated Diagnosis Comments CARDIAC EKG ORDER 07/02/2024 1:1 9 PM VISUAL MERCHANDISE MANAGER ECHO COMPLETE Routine 07/01/2024 11:07 AM VISUAL MERCHANDISE MANAGER Slurred speech FERRITIN Routine 06/30/2024 5:48 AM VISUAL MERCHANDISE MANAGER Left-sided weakness IRON + TRANSFERRIN PANEL Routine 06/30/2024 5:48 AM VISUAL MERCHANDISE MANAGER Left-sided weakness CALCIUM IONIZED WHOLE BLOOD AM Draw 06/30/2024 5:47 AM VISUAL MERCHANDISE MANAGER Left-sided weakness RETIC COUNT AM Draw 06/30/2024 5:47 AM VISUAL MERCHANDISE MANAGER Left-sided weakness RENAL FUNCTION PANEL AM Draw 06/30/2024 5:47 AM VISUAL MERCHANDISE MANAGER Left-sided weakness CULTURE BLOOD Timed 06/29/2024 9:37 PM VISUAL MERCHANDISE MANAGER Left-sided weakness CULTURE BLOOD Timed 06/29/2024 9:30 PM VISUAL MERCHANDISE MANAGER Left-sided weakness MRI BRAIN WO CONTRAST STAT 06/29/2024 8:25 PM VISUAL MERCHANDISE MANAGER Slurred speech BLOOD TYPE VERIFICATION STAT 06/29/2024 7:35 PM VISUAL MERCHANDISE MANAGER SARS-COV-2 (COVID-19) FLU A/B RSV PCR RAPID STAT 06/29/2024 7:35 PM VISUAL MERCHANDISE MANAGER Dehydration XR ABDOMEN KUB PORTABLE STAT 06/29/2024 7:30 PM VISUAL MERCHANDISE MANAGER Dehydration XR CHEST 1VW PORTABLE STAT 06/29/2024 7:19 PM VISUAL MERCHANDISE MANAGER Dehydration TROPONIN-I HIGH SENSITIVE REFLEX 1HOUR Timed 06/29/2024 6:12 PM VISUAL MERCHANDISE MANAGER URINALYSIS REFLEX MICROSCOPIC REFLEX CULTURE STAT 06/29/2024 5:11 PM VISUAL MERCHANDISE MANAGER TYPE + SCREEN PANEL STAT 06/29/2024 4 :27 PM VISUAL MERCHANDISE MANAGER T4 FREE STAT 06/29/2024 4:27 PM VISUAL MERCHANDISE MANAGER TSH REFLEX FREE T4 STAT 06/29/2024 4: 27 PM VISUAL MERCHANDISE MANAGER TROPONIN-I HIGH SENSITIVE BASELINE + 1HR STAT 06/29/2024 4:27 PM VISUAL MERCHANDISE MANAGER PT-INR [facility] STAT 06/29/2024 4:27 PM VISUAL MERCHANDISE MANAGER COMPREHENSIVE METABOLIC PANEL STAT 06/29/2024 4:27 PM VISUAL MERCHANDISE MANAGER CBC W AUTO DIFFERENTIAL STAT 06/29/2024 4:[address]ANDISE [address] ANGIO BRAIN NECK STROKE STAT 06/29/2024 3:52 PM VISUAL MERCHANDISE MANAGER Slurred speech CT BRAIN STROKE STAT 06/29/2024 3:51 PM VISUAL MERCHANDISE MANAGER Slurred speech CREATININE - POCT INTERFACED Routine 06/29/2024 3:40 PM VISUAL MERCHANDISE MANAGER INR WHOLE BLOOD - POINT OF CARE (IP) STROKE Routine 06/29/2024 3:39 PM VISUAL MERCHANDISE MANAGER from Last 3 Months Results * CARDIAC EKG ORDER (07/02/2024 1:19 PM VISUAL MERCHANDISE MANAGER) Narrative 07/02/2024 1:19 PM VISUAL MERCHANDISE MANAGER Ordered by an unspecified provider. Scanned Document CARDIAC SERVICES ORD ERABLES * ECHO COMPLETE (07/01/2024 11:07 AM VISUAL MERCHANDISE MANAGER) IVSd 2D 0.816 cm SSM CV FUJ [...] Laterality Modality Ultrasound 07/01/2024 10:1 5 AM VISUAL MERCHANDISE MANAGER Narrative 07/01/2024 12:21 PM VISUAL MERCHANDISE MANAGER Summary * The left ventricle is normal [...] 10:15 AM Patient Status: OPO Study Site: [facility] Primary Location: [facility] EStudy Info Technical Quality: Good Exam Type: ECHO COMPLETE Indications R47.81 - Slurred speech Procedure(s) * A complete 2D, color Doppler, spectral Doppler, and M-Mode transthoracic echocardiogram was performed. Staff Referring Physician: Devendra Roberts Ordering Provider: Devendra Roberts Attending Physician: Devendra Roberts Stump Shooter: Russell Manzo Left Ventricle The left ventricle [...] 10:15 AM Patient Status: OPO Study Site: [facility] Primary Location: [facility] EStudy Info Technical Quality: Good Exam Type: ECHO COMPLETE Indications R47.81 - Slurred speech Procedure(s) * A complete 2D, color Doppler, spectral Doppler, and M-Modetransthoracic echocardiogram was performed. Staff Referring Physician: Devendra Roberts Ordering Provider: Devendra Roberts Attending Physician: Devendra Roberts Stump Shooter: Russell Manzo Left Ventricle The left ventricle [...] IRON + TRANSFERRIN PANEL (06/30/2024 5:48 AM [facility]) Iron 70 40 - 150 ug/dL [...] Lab Venipuncture / Unknown 06/30/2024 5:48 AM VISUAL MERCHANDISE MANAGER 06/30/2024 5:52 AM [facility] Devendra Roberts MD LAB - CHEMISTRY DIANA COOPER [address] [address], [facility] [phone] * (ABNORMAL) FERRITIN (06/30/2024 5:48 AM VISUAL MERCHANDISE MANAGER) Ferritin 350(H) 13 - 204 ng/mL 06/30/2024 7:06 AM VISUAL MERCHANDISE MANAGER [facility] Blood BLOOD SPECIMEN / Unknown Lab Venipuncture / Unknown 06/30/2024 5:48 AM VISUAL MERCHANDISE MANAGER 06/30/2024 5:52 AM VISUAL MERCHANDISE MANAGER Devendra Roberts MD LAB - CHEMISTRY DIANA COOPER Performing Organization Address [facility]/ZIP Co de Phone Number [address] [address], [facility] [phone] * (ABNORMAL) CALCIUM IONIZED WHOLE BLOOD (06/30/2024 5:47 AM VISUAL MERCHANDISE MANAGER) [facility] Calcium Ionized 1.35 mmol/L 06/30/2024 5:55 AM VISUAL MERCHANDISE MANAGER [facility] pH 7.47(H) 7.35 - 7.45 pH 06/30/2024 5:55 AM [facility] Ionized Calcium pH Adjusted 1.39(H) 1.19 - 1.34 mmol/L 06/30/2024 5:55 AM VISUAL MERCHANDISE MANAGER [facility] Blood BLOOD SPECIMEN / Unknown Lab Venipuncture / Unknown 06/30/2024 5:47 AM VISUAL MERCHANDISE MANAGER 06/30/2024 5:52 AM VISUAL MERCHANDISE MANAGER Devendra Roberts MD LAB - CHEMISTRY DIANA COOPER Performing Organization Address City/[facility]/ZIP Co de Phone Number [address] [address], [place] [phone] * RETIC COUNT (06/30/2024 5:47 AM VISUAL MERCHANDISE MANAGER) Reticulocyte Percent 2.37 0.50 - 2.40 % 06/30/2024 6:32 AM VISUAL MERCHANDISE MANAGER [facility] Reticulocyte Absolute 0.0751 0.0200 - 0.1100 x10E6/uL 06/30/2024 6:32 AM [facility] Ret-HE 34.6 29.0 - 37.9 pg 06/30/2024 6:32 AM [facility] Immature Reticulocyte Fraction 12.5 1.8 - 15.2 % 06/30/2024 6:32 AM [facility] Blood BLOOD SPECIMEN / Unknown Lab Venipuncture / Unknown 06/30/2024 5:47 AM VISUAL MERCHANDISE MANAGER 06/30/2024 6:20 AM VISUAL MERCHANDISE MANAGER Devendra Roberts MD LAB - HEMATOLOGY ORD ERABLES [facility] [address] [place] [address], [facility] [phone] * (ABNORMAL) RENAL FUNCTION PANEL (06/30/2024 5:47 AM VISUAL MERCHANDISE MANAGER) BUN 19 7 - 26 mg/dL 06/30/2024 [...] 2.9 - 5.1 mg/dL 06/30/2024 6:48 AM VISUAL MERCHANDISE MANAGER [facility] Anion Gap 9 6 - 16 06/30/2024 6:48 AM VISUAL MERCHANDISE MANAGER [facility] BUN/Creatinine Ratio 24(H) 7 - 23 06/30/2024 6:48 AM VISUAL MERCHANDISE MANAGER [facility] LABORATORY [facility] Osmolality Calculated 298(H) 275 - 295 mOsm/kg 06/30/2024 6:48 AM VISUAL MERCHANDISE MANAGER [facility] LABORATORY [facility] eGFR by CKD-EPI 73(L) >=90 mL/min/1.7 3 m2 06/30/2024 6:48 AM VISUAL MERCHANDISE MANAGER [facility] Blood BLOOD SPECIMEN / Unknown Lab Venipuncture / Unknown 06/30/2024 5:47 AM VISUAL MERCHANDISE MANAGER 06/30/2024 6:21 AM VISUAL MERCHANDISE MANAGER Devendra Roberts MD LAB - CHEMISTRY DIANA COOPER [facility] LABORATORY [facility] [address] [place] [address], [facility] [phone] * CULTURE BLOOD (06/29/2024 9:37 PM VISUAL MERCHANDISE MANAGER) Only the most recent of2 resultswithin the time period is included. Culture No growth day 5 GERTRUDE 07/05/2024 1:30 AM VISUAL MERCHANDISE MANAGER [facility] MICROBIOLOGY Blood PERIPHERAL BLOOD / Unknown Lab Venipuncture / Unknown 06/29/2024 9:37 PM VISUAL MERCHANDISE MANAGER 06/29/2024 9:41 PM VISUAL MERCHANDISE MANAGER Devendra Roberts MD LAB - MICROBIOLOGY O RDERABLES [facility] MICROBIOLOGY [address] [place] [address], [facility] [phone] * MRI Brain Wo Contrast (06/29/2024 8:25 PM VISUAL MERCHANDISE MANAGER) Anatomical Region Laterality Modality Head Magnetic Resonan ce 07/02/2024 10:1 1 AM VISUAL MERCHANDISE MANAGER Impressions 07/02/2024 10:31 AM VISUAL MERCHANDISE MANAGER IMPRESSION: 1. No evidence of restricted diffusion to suggest an acute infarction. > Interpreting Provider: Preeti Philip MD on 07/02/2024 10:31 AM Narrative 07/02/2024 10:31 AM VISUAL MERCHANDISE MANAGER PROCEDURE: MRI BRAIN WO CONTRAST, DATE/TIME OF EXAM: 06/29/2024 8:25 PM, LOCATION [facility] INDICATION: R47.81: Slurred speech ADDITIONAL CLINICAL INFORMATION: [...] CONTRAST, DATE/TIME OF EXAM: 06/29/2024 8:25PM, LOCATION [facility] INDICATION: R47.81: Slurred speech ADDITIONAL CLINICAL INFORMATION: [...] A/B RSV PCR RAPID (06/29/2024 7:35 PM VISUAL MERCHANDISE MANAGER) COVID-19 PCR Not detected Not detected 06/29/20 24 8:14 PM VISUAL MERCHANDISE MANAGER [facility] Influenza A PCR Not detected Not detected 06/29/2024 8:14 PM VISUAL MERCHANDISE MANAGER [facility] Influenza B PCR Not detected Not detected 06/29/2024 8:14 PM VISUAL MERCHANDISE MANAGER [facility] RSV PCR Not detected Not detected 06/29/2024 8:14 PM VISUAL MERCHANDISE MANAGER [facility] Microbiology SPECIMEN FROM NASOPHARYNGEAL STRUCTURE / Unknown Collection / Unknown 06/29/2024 7:35 PM VISUAL MERCHANDISE MANAGER 06/29/2024 7:35 PM VISUAL MERCHANDISE MANAGER Narrative [facility] - 06/29/2024 8:14 PM VISUAL MERCHANDISE MANAGER This nucleic acid amplification assay has been [...] Roberts MD LAB - MICROBIOLOGY O RDERABLES [address] [address], [facility] [phone] * BLOOD TYPE VERIFICATION (06/29/2024 7:35 PM VISUAL MERCHANDISE MANAGER) ABO Rh A POS 06/29/2024 8:2 1 PM VISUAL MERCHANDISE MANAGER [facility] BLOOD BANK LAB Blood Bank BLOOD SPECIMEN / Unknown Venipuncture / Unknown 06/29/2024 7:35 PM VISUAL MERCHANDISE MANAGER 06/29/2024 7:50 PM VISUAL MERCHANDISE MANAGER Navneet Lizarraga MD LAB - BLOOD BAN K ORDERABLES Performing Organization Address City/[facility]/ZIP Co de Phone Number [facility] BLOOD BANK LAB [address] [place] [address], [facility] [phone] * XR Abdomen Kub Portable (06/29/2024 7:30 PM VISUAL MERCHANDISE MANAGER) Anatomical Region Laterality Modality Abdomen Digital Radiogra phy 06/29/2024 7:57 PM VISUAL MERCHANDISE MANAGER Impressions 06/30/2024 8:18 AM VISUAL MERCHANDISE MANAGER IMPRESSION: Nonobstructive bowel gas pattern. Right renal pelvocaliectasis. Report dictated by Hortensia Voss MD (vice president quality improvement). IIsiah MD have personally reviewed and interpreted this examination/study. > Interpreting Provider: Isiah Arrington MD on 06/30/2024 8:18 AM Narrative 06/30/2024 8:18 AM VISUAL MERCHANDISE MANAGER PROCEDURE: XR ABDOMEN KUB PORTABLE, DATE/TIME OF EXAM: 06/29/2024 7:47 PM, LOCATION [facility] INDICATION: E86.0: Dehydration ADDITIONAL CLINICAL INFORMATION: Ordering [...] DATE/TIME OF EXAM: 06/29/2024 7:47 PM, LOCATION [facility] INDICATION: E86.0: Dehydration ADDITIONAL CLINICAL INFORMATION: Ordering [...] pelvocaliectasis. Report dictated by Hortensia Voss MD (vice president quality improvement). I, Isiah Arrington MD have personally reviewed and interpreted this examination/study. > Interpreting Provider: Isiah Arrington MD on 06/30/2024 8:18 AM Devendra Roberts MD DIAGNOSTIC IMAGING O RDERABLES * XR Chest 1Vw Portable (06/29/2024 7:19 PM VISUAL MERCHANDISE MANAGER) Anatomical Region Laterality Modality Chest Digital Radiogra phy 06/29/2024 7:59 PM VISUAL MERCHANDISE MANAGER Narrative 06/30/2024 8:16 AM VISUAL MERCHANDISE MANAGER PROCEDURE: XR CHEST 1VW PORTABLE, DATE/TIME OF EXAM: 06/29/2024 7:46 PM, LOCATION [facility] INDICATION: E86.0: Dehydration ADDITIONAL CLINICAL INFORMATION: Ordering Provider Reason For Exam: cough COMPARISON: None. TECHNIQUE: Frontal radiographs of the chest. FINDINGS/IMPRESSION: There is no focal consolidation, pleural effusion, or pneumothorax. The mediastinal and cardiac contours are normal. No acute osseous abnormality is seen. Report dictated by Hortensia Voss M.D. (vice president quality improvement). Isiah Barone MD have personally reviewed and interpreted this examination/study. > Interpreting Provider: Isiah Arrington MD on 06/30/2024 8:16 AM Procedure Note Isiah Arrington MD - 06/30/2024 PROCEDURE: XR CHEST 1VW PORTABLE, DATE/TIME OF EXAM: 06/29/2024 7:46PM, LOCATION [facility] INDICATION: E86.0: Dehydration ADDITIONAL CLINICAL INFORMATION: Ordering Provider Reason For Exam: cough COMPARISON: None. TECHNIQUE: Frontal radiographs of the chest. FINDINGS/IMPRESSION: There is no focal consolidation, pleural effusion, or pneumothorax. The mediastinal and cardiac contours are normal. No acute osseousabnormality is seen. Report dictated by Hortensia Voss M.D. (vice president quality improvement). Isiah Barone MD have personally reviewed and interpreted this examination/study. > Interpreting Provider: Isiah Arrington MD on 06/30/2024 8:16 AM Devendra Roberts MD DIAGNOSTIC IMAGING O RDERABLES * TROPONIN-I HIGH SENSITIVE REFLEX 1HOUR (06/29/2024 6:12 PM VISUAL MERCHANDISE MANAGER) Troponin I High Sensitive 8 <=14 ng/L 06/29/2024 7:16 PM [facility] Delta Troponin I HS 06/29/2024 7:16 PM [facility] Comment:Delta value intentio deloris not calculated. Baseline to 1 hour specimen collection interval exceeded. Blood BLOOD SPECIMEN / Unknown Venipuncture / Unknown 06/29/2024 6:12 PM VISUAL MERCHANDISE MANAGER 06/29/2024 6:41 PM VISUAL MERCHANDISE MANAGER Navneet Lizarraga MD LAB - CHEMISTRY ORDERABLES [address] [address] [phone] * (ABNORMAL) URINALYSIS REFLEX MICROSCOPIC REFLEX CULTURE (06/29/2024 5:11 PM VISUAL MERCHANDISE MANAGER) Color UA Yellow Straw, Yellow 06/29/2024 5:47 PM [facility] Clarity UA Slt Cloudy(A) Clear 06/29/2024 5:47 PM [facility] Specific [place] UA 1.031(H) 1.005 - 1.030 06/29/2024 5:47 [...] Unknown Collection / Unknown 06/29/2024 5:11 PM VISUAL MERCHANDISE MANAGER 06/29/2024 5:16 PM VISUAL MERCHANDISE MANAGER Narrative [facility] - 06/29/2024 5:47 PM VISUAL MERCHANDISE MANAGER Navneet Lizarraga MD LAB - URINALYSI S ORDERABLES [address] [place] [address], [facility] [phone] * PT-INR [facility] (06/29/2024 4:27 PM VISUAL MERCHANDISE MANAGER) [facility] PT 12.9 12.1 - 14.8 Seconds 06/29/2024 [...] Unknown Venipuncture / Unknown 06/29/2024 4:27 PM VISUAL MERCHANDISE MANAGER 06/29/2024 4:36 PM VISUAL MERCHANDISE MANAGER Navneet Lizarraga MD LAB - COAGULATI ON ORDERABLES [address] [address], [facility] [phone] * TROPONIN-I HIGH SENSITIVE BASELINE + 1HR (06/29/2024 4:27 PM VISUAL MERCHANDISE MANAGER) [facility] Troponin I High Sensitive <3 <=14 ng/L 06/29/2024 5:11 PM VISUAL MERCHANDISE MANAGER [facility] Blood BLOOD SPECIMEN / Unknown Venipuncture / Unknown 06/29/2024 4:27 PM VISUAL MERCHANDISE MANAGER 06/29/2024 4:38 PM VISUAL MERCHANDISE MANAGER Navneet Lizarraga MD LAB - CHEMISTRY ORDERABLES [address] [address], [place] [phone] * (ABNORMAL) TSH REFLEX FREE T4 (06/29/2024 4:27 PM VISUAL MERCHANDISE MANAGER) [facility] TSH 6.035(H) 0.350 - 4.940 uIU/mL 06/29/2024 7:18 PM VISUAL MERCHANDISE MANAGER [facility] Blood BLOOD SPECIMEN / Unknown Venipuncture / Unknown 06/29/2024 4:27 PM VISUAL MERCHANDISE MANAGER 06/29/2024 4:38 PM VISUAL MERCHANDISE MANAGER Navneet Lizarraga MD LAB - CHEMISTRY ORDERABLES Performing Organization Address City/[facility]/ZIP Co de Phone Number [facility] [address] [place] [address], [facility] [phone] * TYPE + SCREEN PANEL (06/29/2024 4:27 PM VISUAL MERCHANDISE MANAGER) [facility] Antibody Screen NEG 5:23 PM [facility] B[facility]OD B[facility] LAB ABO Rh A POS 06/29/2024 5:23 PM [facility] LAB Blood Bank BLOOD SPECIMEN / Unknown Venipuncture / Unknown 06/29/2024 4:27 PM VISUAL MERCHANDISE MANAGER 06/29/2024 4:46 PM VISUAL MERCHANDISE MANAGER Navneet Lizarraga MD LAB - BLOOD BAN K ORDERABLES Performing Organization Address City/[facility]/ZIP Co de Phone Number [facility] LAB [address] [place] [address], [facility] [phone] * (ABNORMAL) CBC W AUTO DIFFERENTIAL (06/29/2024 4:27 PM VISUAL MERCHANDISE MANAGER) [facility] WBC 11.2(H) 4.0 - 10.7 x10E9/L 06/29/2024 [...] Unknown Venipuncture / Unknown 06/29/2024 4:27 PM VISUAL MERCHANDISE MANAGER 06/29/2024 4:38 PM VISUAL MERCHANDISE MANAGER Navneet Lizarraga MD LAB - HEMATOLOG Y ORDERABLES [facility] [address] [place] [address], [facility] [phone] * (ABNORMAL) COMPREHENSIVE METABOLIC PANEL (06/29/2024 4:27 PM VISUAL MERCHANDISE MANAGER) BUN 25 7 - 26 mg/dL 06/29/2024 [...] 30(H) 7 - 23 06/29/2024 5:07 PM VISUAL MERCHANDISE MANAGER [facility] Osmolality Calculated 305(H) 275 - 295 mOsm/kg 06/29/2024 5:07 PM [facility] Albumin/Globulin Ratio 1.0(L) 1.1 - 2.3 06/29/2024 5:07 PM [facility] eGFR by CKD-EPI 71(L) >=90 mL/min/1.7 3 m2 06/29/2024 5:07 PM [facility] Blood BLOOD SPECIMEN / Unknown Venipuncture / Unknown 06/29/2024 4:27 PM VISUAL MERCHANDISE MANAGER 06/29/2024 4:38 PM VISUAL MERCHANDISE MANAGER Navneet Lizarraga MD LAB - CHEMISTRY ORDERABLES [facility] [address] [place] [address], [place] [phone] * T4 FREE (06/29/2024 4:27 PM VISUAL MERCHANDISE MANAGER) T4 Free 1.2 0.7 - 1.5 ng/dL 06/29/2024 7:51 PM [facility] Blood BLOOD SPECIMEN / Unknown Venipuncture / Unknown 06/29/2024 4:27 PM VISUAL MERCHANDISE MANAGER 06/29/2024 4:38 PM VISUAL MERCHANDISE MANAGER Navneet Lizarraga MD LAB - CHEMISTRY ORDERABLES [facility] [address] [place] [address], [place] [phone] * CT Angio Brain Neck Stroke (06/29/2024 3:52 PM VISUAL MERCHANDISE MANAGER) Anatomical Region Laterality Modality Head Computed Tomogra phy 06/29/2024 4:26 PM VISUAL MERCHANDISE MANAGER Impressions 06/29/2024 4:33 PM VISUAL MERCHANDISE MANAGER IMPRESSION: 1. No acute intracranial hemorrhage. 2. No large arterial occlusions or hemodynamically significant stenoses identified in the head or neck. Viz.AI was used for large vessel occlusion detection. > Interpreting Provider: Preeti Philip MD on 06/29/2024 4:33 PM Narrative 06/29/2024 4:33 PM VISUAL MERCHANDISE MANAGER PROCEDURE: CT ANGIO BRAIN NECK STROKE, DATE/TIME OF EXAM: 06/29/2024 3:52 PM, LOCATION [facility] INDICATION: R47.81: Slurred speech ADDITIONAL CLINICAL INFORMATION: [...] STROKE, DATE/TIME OF EXAM: 43:52 PM, LOCATION [facility] INDICATION: R47.81: Slurred speech ADDITIONAL CLINICAL INFORMATION: [...] CT BRAIN - Stroke (06/29/2024 3:51 PM VISUAL MERCHANDISE MANAGER) Anatomical Region Laterality Modality Head Computed Tomogra phy 06/29/2024 3:36 PM VISUAL MERCHANDISE MANAGER Impressions 06/29/2024 4:25 PM VISUAL MERCHANDISE MANAGER IMPRESSION: 1.No acute intracranial hemorrhage. 2.Please note that CT is insensitive to nonhemorrhagic strokes and MRI of the brain should be considered if there is clinical concern for acute cerebral infarction. > Dictated by Brenton Dickson MD (Hat Model), 06/29/2024 3:38 PM. Results were discussed with Dr. Carloz M.D. by Dr. Brenton Dickson M.D. (Hat Model) at 3:36PM on 06/29/24 with readback confirmation. These findings were discussed with Dr. Philip by Dr. Dickson prior to this dictation. I, Preeti Philip MD have personally reviewed and interpreted this examination/study. > Interpreting Provider: Preeti Philip MD on 06/29/2024 4:25 PM Narrative 06/29/2024 4:25 PM VISUAL MERCHANDISE MANAGER PROCEDURE: CT BRAIN STROKE, DATE/TIME OF EXAM: 06/29/2024 3:30 PM, LOCATION [facility] INDICATION: Code Stroke TECHNIQUE: CT of the [...] DATE/TIME OF EXAM: 06/29/2024 3:30 PM, LOCATION [facility] INDICATION: Code Stroke TECHNIQUE: CT of the [...] infarction. > Dictated by Brenton Dickson MD (Hat Model), 06/29/2024 3:38 PM. Results were discussed with Dr. Carloz M.D. by Dr. Brenton Dickson M.D. (Hat Model) at 3:36PM on 06/29/24 with readback confirmation. These findings were discussed with Dr. Philip by Dr. Dickson prior to this dictation. IPreeti MD have personally reviewed and interpretedthis examination/study. > Interpreting Provider: Preeti Philip MD on 06/29/2024 4:25 PM Navneet Lizarraga MD CT ORDERABLES * (ABNORMAL) CREATININE - POCT INTERFACED (06/29/2024 3:40 PM VISUAL MERCHANDISE MANAGER) Creatinine POCT 0.62 0.30 - 1.30 mg/dL 06/29/2024 3:51 PM [facility] eGFR 88(L) >=90 mL/min/1.7 3 m2 06/29/2024 3:51 PM [facility] Blood BLOOD SPECIMEN / Unknown 06/29/2024 3:40 PM VISUAL MERCHANDISE MANAGER 06/29/2024 3:51 PM VISUAL MERCHANDISE MANAGER Navneet Lizarraga MD LAB - POINT OF CARE ORDERABLES [facility] [address] [place] [address], [place] [phone] * INR WHOLE BLOOD - POINT OF CARE (IP) STROKE (06/29/2024 3:39 PM VISUAL MERCHANDISE MANAGER) INR 1.0 0.9 - 1.2 06/30/2024 5:38 AM [facility] Device [id number] 06/30/2024 5:38 AM [facility] Agency Manager ID [id number] 06/30/2024 5:38 AM [facility] Blood BLOOD SPECIMEN / Unknown 06/29/2024 3:39 PM [employer]CHANDISE MANAGER 06/30/2024 5:38 AM V[employer]UAL MERCHANDISE MANAGER Navneet Lizarraga MD LAB - POINT OF CARE ORDERABLES [facility] [address] [place] [address], [place] [phone] from Last 3 Months Advance Directives * Full Code (Latest Code Status on File) Date Activated Date Inactivated Comments 06/29/2024 6:25 PM 07/01/2024 5:22 PM Care Teams [place] Relationship Specialty Start Date End Date Kole Pond MD [address] [place] [id number] PCP - General 01/24/09
--- OUTSIDE RECORDS SUMMARY | 2024-09-10 01:36 | XMS_ITS | Continuity of Care Document ---
Author Organization [facility] Address [address] [place] [address] Phone Care Team Providers Care Software Configuration Manager Name Role Phone Arredondo OD, Sukumar Unavailable Unavailable Advance Directives Directive Yes / No Effective Date File Name No Information Encounters Encounter Description Practice Location Reason(s) For Visit Diagnoses Date Provider Providers Copied on Encounter [facility], [id number] [place] [address] [address], [place], [place], [id number], [place] tel:[phone] [facility] No Information 4-200 1 Arredondo OD Sukumar. [address] , [address], [place], [address], [place]. tel:[phone] Family History Family Member Type Diagnosis Age At Onset No Information Payers Payer name Insurance type Covered libertarian ID Authoriza tion(s) No Information Social History [...]
--- OUTSIDE RECORDS SUMMARY | 2024-09-10 01:36 | XMS_ITS | Clinical Summary ---
Author Organization [facility] Address [address] [place] [id number] Care Team Providers Care Trading Floor Operator Name Role Phone Unavailable Primary Care Provider [...]
--- OUTSIDE RECORDS SUMMARY | 2024-09-10 01:36 | XMS_ITS | Referral Summary ---
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 Assessment & Plan (07/06/2021 3:16 PM SYSTEMS LEAD): Increase donepezil to 10 mg daily. Warned of side effects and call back if any develop. Laboratory workup an MRI unremarkable. Assessment & Plan (04/13/2021 6:40 PM CDT): Probably represents Alzheimer's dementia given family history and her [facility] MS score 16/30. Laboratory workup and [...] today. Assessment & Plan (07/06/2021 3:16 PM SYSTEMS LEAD): Use trazodone as needed. Assessment & Plan [...] atorvastatin Assessment & Plan (07/06/2021 3:16 PM SYSTEMS LEAD): Continue her atorvastatin check lipids and LFTs before next visit. Assessment & Plan (04/13/2021 6:38 PM CDT): LDL well controlled on her atorvastatin. Assessment & Plan (10/12/2020 11:17 AM CDT): LDL better controlled on her atorvastatin. Assessment & Plan (06/20/2020 5:54 PM SYSTEMS LEAD): Atorvastatin resent to her pharmacy and will [...] 2023. Assessment & Plan (07/06/2021 3:16 PM SYSTEMS LEAD): Continue calcium, vitamin-D, weight-bearing exercise, Prolia and repeat bone density scan every 2 years. Assessment & Plan (04/13/2021 6:38 PM CDT): Calcium, vitamin-D, weight-bearing exercise, Prolia and repeat bone density scan approximately every 2 years. Assessment & Plan (10/12/2020 11:17 AM CDT): Continue calcium, vitamin-D, weight-bearing exercise, Prolia and repeat bone density scan March 2021. Assessment & Plan (06/20/2020 5:53 PM SYSTEMS LEAD): Continue calcium, vitamin-D, weight-bearing exercise, Prolia and [...] this exam were completed as outlined by [facility]. Environmental allergies 04/26/2018 Assessment & Plan (05/03/2018 2:52 PM CDT): Will refer to allergy for full evaluatipn Assessment & Plan (04/26/2018 2:59 PM CDT): Start Zyrtec and Flonase. Irrigate sinuses with saline. Patient verbalizes understanding. Vasovagal syncope 06/15/2017 Assessment & Plan (08/11/2017 2:07 PM SYSTEMS LEAD): She has had an extensive workup so far however has been told that she needs bilateral carotids and MRI brain by Ophthalmology Assessment & Plan (06/29/2017 4:18 PM SYSTEMS LEAD): History and previous cardiac evaluation is most [...] syncope. Assessment & Plan (06/15/2017 11:55 AM SYSTEMS LEAD): States she passed out a couple times [...] mg Assessment & Plan (05/25/2017 9:09 AM SYSTEMS LEAD): states she may feel a little better Assessment & Plan (04/13/2017 11:20 AM CDT): She definitely has some evidence of depression at this point we will start low- dose Zoloft see her back in 4-5 weeks I will also begin with lab work today Seasonal allergic rhinitis due to pollen 017 Assessment & Plan (07/06/2021 3:16 PM SYSTEMS LEAD): Continue her azelastine and Zyrtec and follow-up with her developer [employer] as they direct. Assessment & Plan (04/13/2021 6:39 PM CDT): Restart Zyrtec and try azelastine. Assessment & Plan (06/20/2020 5:53 PM SYSTEMS LEAD): Continue Zyrtec as needed. Assessment & Plan [...] 04/06/2019 Assessment & Plan (06/29/2017 4:16 PM SYSTEMS LEAD): Very atypical and much more suspicious of gastroesophageal reflux. Supporting a noncardiac diagnosis is the favorable findings on her stress test and echocardiogram. Could consider an [id number] H2 damien or proton pump inhibitor. Would [...] reviewed her extensive workup she has seen [facility] Ophthalmology with negative workup, she then saw Neurology with negative workup, we recently check labs which are negative as well at this point she believes this is may be mood related and appears to be somewhat improving Assessment & Plan (03/07/2018 10:39 AM CDT): Our major discussion today was about her blurred vision. We have Center for full evaluation with [facility] including full ophthalmological evaluation. Ophthalmology [...] well Assessment & Plan (08/11/2017 2:08 PM SYSTEMS LEAD): She is under an extensive evaluation ophthalmological E she had a test this morning which we are waiting on results I will order carotid an MRI Assessment & Plan (05/25/2017 9:07 AM SYSTEMS LEAD): states it comes on and off , has seen Dr RAJAN at [facility], very unclear how she is describing it states she was on vacation and had no blurred vision Will refer for second opinion to [facility] Assessment & Plan (04/13/2017 11:19 AM [...] on file Legal Sex Female 1:44 PM SYSTEMS LEAD Gender Identity Not on file Sexual Orientation [...] Most Recently Relevant to Health Maintenance Insurance [facility] MEDICARE T MEDICARE [facility] MEDICARE Care Teams 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
== END 2024-09-10 01:59 | disposition left against medical advice (07) ==
LOC: ANHED 09-10 01:33
PROVIDERS: Emergency Provider Student in an Organized Health Care Education/Training Program; PCP Internal Medicine
DX: R19.7 Diarrhea, unspecified (principal); Z20.822 Contact with and (suspected) exposure to COVID-19
CPT/HCPCS: 36415; 80053; 83690; 85025; 87637; 93005; 99199